=== PATIENT | male | born 1945 | race African-American/Black ===

== ENCOUNTER 2020-10-12 09:14 | Emergency (ER) | payer MEDICARE, SELFPAY ==
[2020-10-12] VITALS (17 sets, daily range): BP systolic 98–127; BP diastolic 62–83; PULSE 53–91; RESP 15–22; TEMP 36.2; O2SAT 95–100
--- NOTE | ~2020-10-12 | CT_ITS ---
EXAMINATION: CT brain wo con DATE: 10/12/2020 10:14 INDICATION: Weakness and dizziness. TECHNIQUE: Computed tomography (CT) of the head was performed without intravenous contrast. The mA wa s adjusted according to patient size. Iterative reconstruction technique was employed. The dose-lengt h product was 605.33 mGy-cm. COMPARISON: None FINDINGS: There is diffuse brain volume loss. There are scattered areas of low attenuation in the cer ebral white matter, which is within normal limits for the patient's age. There is no intracranial he morrhage, acute infarction, or abnormal intracranial mass lesion. The ventricles are normal in size. There is an old blowout fracture of medial wall of right orbit. There is anteroposterior elongation o f the ocular globes. There are likely changes of ocular lens replacement surgeries. The mastoid air c ells are normal. IMPRESSION: 1. Normal aging brain. Reviewed, dictated and finalized at location B. IMPRESSION: 1. Normal aging brain.
--- NOTE | ~2020-10-12 | XR_ITS ---
EXAMINATION: XR chest 2V DATE: 10/12/2020 10:05 INDICATION: Weakness. Dizziness. Fever and chills. TECHNIQUE: Frontal and lateral views of the chest were obtained. COMPARISON: None. FINDINGS: There is mild atelectasis in the lower lung zones. No pleural effusion or pneumothorax. The heart size is normal. There is a compression fracture at thoracolumbar junction with focal severe ky phosis, likely chronic. IMPRESSION: 1. Mild atelectasis in the lower lung zones. Reviewed, dictated and finalized at location B.
--- NOTE | 2020-10-12 09:16 | ECG_ITS ---
Measurements Intervals [place] Rate: 68 P: 58 [place]: 139 QRS: 51 QRSD: 75 T: 49 QT: 354 QTc: 377 Interpretive Statements SINUS RHYTHM INCOMPLETE RIGHT BUNDLE BRANCH BLOCK BORDERLINE ECG Electronically Signed On 10-12-2020 9:55:06 CDT by Jose F Sarmiento D.O.
[2020-10-12 10:04] LABS: Basophils Percent Auto 0.7 % (0.2-1.2); Eosinophils Absolute Auto 0.1 K/mm3 (0-0.3); Eosinophils Percent Auto 2.5 % (0-4.4); Hematocrit 37.3 % (42.0-52.0); Hemoglobin 12.3 g/dL (14.0-18.0); Immature Granulocyte Absolute 0.01 K/mm3 (0.00-0.031); Immature Granulocyte Percent A 0.2 % (0-0.5); Lymphocytes Absolute Auto 1.31 K/mm3 (0.9-3.2); Lymphocytes Percent Auto 29.8 % (18.3-44.2); Mean Corpuscular Hemoglobin 30.2 pg (26-34); Mean Corpuscular Volume 91.6 fl (80-100); Monocytes Absolute Auto 0.5 K/mm3 (0.1-0.6); Monocytes Percent Auto 10.7 % (2.6-8.5); Neutrophils Absolute Auto 2.5 K/mm3 (1.3-6.7); Neutrophils Percent Auto 56.1 % (45.5-73.1); Platelet Count Result 233 k/mm3 (150-375); Red Blood Count 4.07 M/mm3 (4.6-6.20); Red Cell Distribution Width 12.6 % (11.5-14.5); White Blood Count 4.4 K/mm3 (4.5-10.0)
--- NOTE | 2020-10-12 10:04 | ED.WEAKNESS ---
HPI - Weakness General Chief complaint: Weakness Stated complaint: dizziness, weakness Time Seen by Provider: 10/12/20 10:00 Source: patient Mode of arrival: ambulatory Limitations: no limitations History of Present Illness HPI Narrative: This is a 74 year old male that presents to the ER for lightheadedness and weakness over the last 4 days. Reports he feels lightheaded when he stands up. Reports he feels better when he lies down. No localizing symptoms. Denies fever, cough, chest pain, shortness of breath, abdominal pain, vomiting, or dysuria. Related Data Allergies Allergy/AdvReac Type Severity Reaction Status Date / Time No Known Allergies Allergy Verified 10/12/20 10:03 Review of Systems Review of Systems: Narrative: CONSTITUTIONAL: Denies fever CARDIOVASCULAR: Denies chest pain, or edema. RESPIRATORY: Denies cough or dyspnea. GASTROINTESTINAL: Denies abdominal pain, nausea, vomiting GENITOURINARY: Denies dysuria All systems reviewed & are unremarkable except as noted in HPI and below PMFSH Past Medical History Medical History (Updated 10/12/20 @ 13:01 by Bree Nieves PA-C) History of hyperlipidemia History of hypertension Social History Social History Gender identity (if verbalized by the patient): Male Exam Narrative: Exam Narrative: GENERAL: Elderly, well-nourished, and in no acute distress. HEAD: Normocephalic, atraumatic. EYES: PERRLA and EOMI. ENT: Nares clear, no rhinorrhea or epistaxis. Mucous membranes moist. Oropharynx without tonsillar hypertrophy exudate or other lesions. Bilateral TMs pearly maki non-bulging NECK: Supple. No adenopathy or masses. No carotid bruits or JVD CHEST: Clear to auscultation. No respiratory distress. No wheezes rales or rhonchi HEART: Regular rate and rhythm. No murmur heard. Normal peripheral pulses. ABDOMEN: Soft, nontender, nondistended, normal active bowel sounds. EXTREMITIES: Normal range of motion. No edema. SKIN: Warm, dry, no rash. NEURO: No focal deficits. Alert and oriented x3. Cranial nerves II through XII grossly intact. Normal qxlb-cp-bbws. Normal gait PSYCH: Normal mood and affect Course Vital Signs Vital signs: Vital Signs Temperature 97.1 F L 10/12/20 09:17 Pulse Rate 91 10/12/20 09:17 Respiratory Rate 16 10/12/20 09:17 Blood Pressure 127/83 10/12/20 09:17 Pulse Oximetry 100 10/12/20 09:17 Temperature 97.1 F L 10/12/20 09:17 Pulse Rate 56 L 10/12/20 12:31 Respiratory Rate 22 H 10/12/20 12:31 Blood Pressure 119/81 10/12/20 12:31 Pulse Oximetry 100 10/12/20 12:31 MDM - Weakness MDM Narrative Medical decision making narrative: Patient presents the emergency department for generalized weakness. Was also reporting some intermittent lightheadedness. He is afebrile and nontoxic-appearing. He is neurologically intact. CBC and metabolic panel without concerning findings. UA without evidence of infection. Chest x-ray and CT scan of the brain are without concerning findings. EKG without acute changes. Patient ambulated in the berry with a steady gait. He is stable and felt appropriate for further outpatient evaluation. He is to follow-up with his primary care doctor. He was given warnings to return to the ER Lab Data Attestation: I reviewed the patient's lab results. Result diagrams: 10/12/20 09:29 10/12/20 09:29 Labs: Lab Results 10/12/20 10/12/20 10/12/20 Range/Units 09:29 09:29 10:51 WBC 4.4 L (4.5-10.0) K/mm3 RBC 4.07 L (4.6-6.20) M/mm3 Hgb 12.3 L (14.0-18.0) g/dL Hct 37.3 L (42.0-52.0) % MCV 91.6 (80-100) fl MCH 30.2 (26-34) pg MCHC 33.0 (32-36) g/dl RDW 12.6 (11.5-14.5) % Plt Count 233 (150-375) k/mm3 MPV 10.0 (7.4-10.4) fl Immature Gran % (Auto) 0.2 (0-0.5) % Neut % (Auto) 56.1 (45.5-73.1) % Lymph % (Auto) 29.8 (18.3-44.2) % [place] % (Auto) 10.7 H (2.6-8.5) % Eos % (Auto) 2.5 (0-4.4) % B
[2020-10-12 10:13] LABS: Alanine Aminotransferase 12 U/L (4-50); Albumin Level 4.1 g/dL (3.5-5.1); Alkaline Phosphatase 74 U/L (38-126); Anion Gap 7 mmol/L (8-16); Aspartate Amino Transferase 24 U/L (17-59); Bilirubin,Total 0.6 mg/dL (0.2-1.3); Blood Urea Nitrogen 11 mg/dL (9-20); Calcium 8.9 mg/dL (8.4-10.2); Carbon Dioxide 27 mmol/L (22-30); Chloride 107 mmol/L (98-107); Estimated CRCL calculation 53 ml/min; Estimated Glomerular Filt Rate 59; Glucose 102 mg/dL (75-110); Potassium 3.7 mmol/L (3.4-5.0); Sodium 141 mmol/L (137-145)
[2020-10-12 11:08] LABS: Add Urine Microscopic? YES; Appearance Urine Cloudy (Clear); Bilirubin Urine Negative (Negative); Color Urine Amber (Yellow); Glucose Urine UA Negative (Negative); Hyaline Casts Urine 50+ /lpf; Ketones Urine Trace mg/dL (Negative); Leukocyte Esterase Ur Negative LEU/UL (Negative); Mucus Urine Heavy /lpf; Nitrate Urine Negative (Negative); Protein Urine 2+ mg/dL (Negative); RBC Urine 0-2 /hpf (0-2); Specific Grav Ur 1.021 (1.001-1.035); Squamous Epithelial Cell Urine Occasional /hpf (Few)
[2020-10-12 11:11] LABS: Blood Urine Negative (Negative)
[2020-10-12] MEDS: SODIUM CHLORIDE 0.9% IV 1,000 ML 999 ML IV CONT (11:36)
--- NOTE | 2020-10-12 12:32 | PC.NURSE ---
nurse staff Kelly at bedside attempting to collect more urine from pt for culture.
--- NOTE | 2020-10-12 13:01 | PC.NURSE ---
Pt ambulatory around ED Nursing station without dizziness or lightheadedness reported. States is feeling better.
--- NOTE | 2020-10-12 13:07 | PC.NURSE ---
Unable to give additional urine for urine cx (unable to void).
== END 2020-10-12 13:30 | disposition home or self-care (01) ==
PROVIDERS: Emergency Provider Emergency Medicine; PCP Clinical Nurse Specialist Psychiatric/Mental Health, Child & Family
DX: R53.1 Weakness (principal); I10 Essential (primary) hypertension; E78.5 Hyperlipidemia, unspecified
CPT/HCPCS: 36415; 70450; 71046; 80053; 81001; 85025; 87086; 93005; 96360; 99284; J7030

== ENCOUNTER 2021-01-14 14:46 | Emergency (ER) | payer MEDICARE, SELFPAY ==
--- NOTE | ~2021-01-14 | XR_ITS ---
EXAMINATION: XR abdomen/kub 1V INDICATION: Constipation TECHNIQUE: Upright views of the abdomen were obtained on 2 radiographs. COMPARISON: None FINDINGS: There are multiple dilated small bowel loops with air-fluid levels. No definite free intrap eritoneal gas is identified. The visualized lung bases are clear. There is mild osteoarthritis of the hips. S-shaped curvature of the spine is noted. IMPRESSION: 1. Dilated loops of bowel with air-fluid levels consistent with bowel obstruction versus adynamic ile us. Reviewed, dictated and finalized at location B. IMPRESSION: 1. Dilated loops of bowel with air-fluid levels consistent with bowel obstructi on versus adynamic ileus.
[2021-01-14 15:16] VITALS: BP 140/83; PULSE 98; RESP 19; TEMP 37.1; O2SAT 99
--- NOTE | 2021-01-14 15:47 | ED.ABDPAIN ---
HPI - Abdominal Pain General Chief Complaint: Abdominal Pain Stated Complaint: no appetite/bowels irregular Time Seen by Provider: 01/14/21 15:40 Source: patient and RN notes reviewed Mode of arrival: ambulatory Limitations: no limitations History of Present Illness HPI narrative: 75-year-old male presents with concern for constipation and nausea. He reports 4-day history of no bowel movement, nausea, poor appetite. He also reports unintentional weight loss over the past 1 year. He reports he has not spoken to his primary doctor about the unintentional weight loss, he has not seen her since he noticed his weight loss. He denies vomiting, fever, diarrhea, abdominal pain. He reports history of prior episodes of constipation that were relieved with [id number] medications. Reports he has taken Dulcolax with no relief. MD elicited complaint: abdominal pain Related Data Home Medications Medication Instructions Recorded Confirmed amlodipine 10 mg PO DAILY 01/14/21 01/14/21 brimonidine 0.2 drp OPHTHALMIC (EYE) DAILY 01/14/21 01/14/21 latanoprost 0.005 drp EACH EYE DIRECTED 01/14/21 01/14/21 losartan 100 mg PO DAILY 01/14/21 01/14/21 pravastatin 20 mg PO DAILY 01/14/21 01/14/21 timolol maleate 0.5 drp EACH EYE DIRECTED 01/14/21 01/14/21 Allergies Allergy/AdvReac Type Severity Reaction Status Date / Time No Known Allergies Allergy Verified 01/14/21 15:19 Review of Systems Review of Systems: Narrative: CONSTITUTIONAL: Denies malaise, chills, sweats, or fever. CARDIOVASCULAR: Denies chest pain, palpitations, or edema. RESPIRATORY: Denies cough or dyspnea. GASTROINTESTINAL: Denies abdominal pain, vomiting, diarrhea, bloody, or mucous stools. Reports constipation GENITOURINARY: Denies dysuria or hematuria. MUSCULOSKELETAL: Deniesmyalgia. All systems reviewed & are unremarkable except as noted in HPI and below PMFSH Past Medical History Medical History History of hyperlipidemia History of hypertension Social History Social History Gender identity (if verbalized by the patient): Male Comments At time of signature, agree with nursing past medical, surgical, social and family history. There is no relevant family history pertinent to the presenting complaint Exam Narrative: Exam Narrative: GENERAL: Well-appearing, well-nourished, and in no acute distress. HEAD: Normocephalic, atraumatic. EYES: PERRLA, conjunctivae clear, and EOMI. ENT: Nares clear, turbinates pink, no rhinorrhea or epistaxis. Mucous membranes moist. Oropharynx without edema, erythema, or lesions. Tonsils not enlarged and without exudate. NECK: Supple. No lymphadenopathy CHEST: Speaks in full sentences. No respiratory distress. HEART: Regular rate and rhythm. ABDOMEN: Soft, flat, nondistended. No guarding, rebound tenderness, or rigid. No pulsatilla masses. Bowel sounds present in all four quadrants. No organomegaly. Negative Villalta?s sign. No periumbilical tenderness. No Supra public tenderness or distension. Good femoral pulses bilaterally. No hernia noted. No scars or surface trauma. SKIN: Warm, dry, no rash. NEURO: Alert and oriented x3. PSYCH: Normal mood and affect Course Course Emergency Course: Patient is aware of, understands and agrees to be transferred to the emergency room. Patient agrees to proceed directly to the emergency department. Portions of this record may have been created with voice recognition software Vital Signs Vital signs: Vital Signs Temperature 98.8 F 01/14/21 15:16 Pulse Rate 98 01/14/21 15:16 Respiratory Rate 19 01/14/21 15:16 Blood Pressure 140/83 01/14/21 15:16 Pulse Oximetry 99 01/14/21 15:16 Temperature 98.8 F 01/14/21 15:16 Pulse Rate 98 01/14/21 15:16 Respiratory Rate 19 01/14/21 15:16 Blood Pressure 140/83 01/14/21 15:16 Pulse Oximetry 99 01/14/21 15:16 Reviewed. Transfer Transfered to: [facility]
[2021-01-14] MEDS: ONDANSETRON HCL ODT 4 MG TABLET PO (16:37)
== END 2021-01-14 17:05 | disposition short-term general hospital (02) ==
PROVIDERS: Emergency Provider Nurse Practitioner
DX: K56.609 Unspecified intestinal obstruction, unspecified as to partial versus complete obstruction (principal); E78.5 Hyperlipidemia, unspecified; I10 Essential (primary) hypertension
CPT/HCPCS: 74018; 99213; A9270; G0463

== ENCOUNTER 2021-01-14 17:27 | Inpatient (IN) | payer MEDICARE, SELFPAY ==
[2021-01-14] VITALS (8 sets, daily range): BP systolic 114–141; BP diastolic 71–96; PULSE 78–100; RESP 18–31; TEMP 36.2–36.5; O2SAT 100
--- NOTE | ~2021-01-14 | XR_ITS ---
XR abdomen NG/feed tube insert DATE: 01/15/2021 00:42 INDICATION: NG tube placement TECHNIQUE: Portable upright AP view of the upper abdomen on 01/15/2021 at 0033 hours COMPARISON: 01/14/2021 abdomen 01/14/2021 CT abdomen pelvis FINDINGS: NG tube is present in the gastric fundus and the NG tube extending approximately 9 cm beyon d the diaphragmatic hiatus. IMPRESSION: NG tube in gastric fundus Reviewed, dictated and finalized at Location A. Reviewed, dictated and finalized at location A. IMPRESSION: NG tube in gastric fundus
--- NOTE | ~2021-01-14 | XR_ITS ---
XR abdomen/kub 1V 01/21/2021 08:27 Indication: Postoperative ileus Procedure: KUB Comparison: 01/16/2021 Findings: There are mildly dilated small bowel loops in the central abdomen. There is probable free a ir along the right upper abdomen which may be postoperative. Correlate for abdominal surgery. No acut e osseous abnormality. Impression: 1: Free air right upper abdomen, possibly postoperative. Correlate clinically. 2: Mildly distended small bowel centrally, most likely ileus. Reviewed, dictated and finalized at location A. Impression: 1: Free air right upper abdomen, possibly postoperative. Correlate clinically. 2: Mildly distended small bowel centrally, most likely ileus.
--- NOTE | ~2021-01-14 | XR_ITS ---
EXAMINATION: XR abdomen/kub 1V EXAM DATE: 01/16/2021 12:33 INDICATION: Bowel obstruction . Ascending colonic cancer. Left renal mass, probably RCC. TECHNIQUE: Frontal projection of the upper abdomen, frontal projection lower abdomen/pelvis for inter pretation. Comparison is made to prior examination from 01/15/2021, 01/14. FINDINGS: Feeding tube is in position. There are several loops of mildly dilated air-filled small bow el, could be ileus or partial obstruction, noticeable improvement compared to 01/14 exam. There are manjinder ny degenerative changes. IMPRESSION: 1. Several mildly dilated small bowel loops with improvement, ileus versus partial obstruction. 2. Feeding tube in position. Reviewed, dictated and finalized at location A. IMPRESSION: 1. Several mildly dilated small bowel loops with improvement, ileus versus par tial obstruction. 2. Feeding tube in position.
--- NOTE | ~2021-01-14 | CT_ITS ---
EXAMINATION: CT abdomen pelvis w con EXAM DATE: 01/14/2021 22:11 INDICATION: Abdominal pain , symptoms for days. TECHNIQUE: Spiral CT of the abdomen and pelvis was performed following intravenous injection of 100 m L Omnipaque 350. Axial, coronal and sagittal images of the abdomen and pelvis were reviewed. The do se-length product (DLP) for this examination was 426.58 mGy-cm. The exposure was tailored according to patient size (auto mA exposure control), and iterative reconstruction (ASIR) was used as additiona l dose reduction technique. There is no prior study for comparison. FINDINGS: Small exophytic mass off of the lower pole of the left kidney most likely enhancing, most l ikely a renal cell cancer. Pre and postcontrast CT or MRI abdomen is recommended as follow-up exam. There is an ascending colonic circumferential mass measuring about 4 cm in length. There is fluid in the cecum, appendix and small bowel proximal to this. This is best appreciated on the coronal sequenc e. There is stool distal to this, but it could be causing low-grade obstruction. Also possible enteri tis and ileitis. The liver, spleen, adrenal glands and pancreas are unremarkable. Gallbladder is unremarkable. No bi liary obstruction. The prostate is unremarkable. The bladder is unremarkable. There is no retroper itoneal or pelvic lymphadenopathy. There are no findings to suggest appendicitis. The stomach and small bowel are unremarkable. No free intraperitoneal gas. The heart is normal in size. There are no pericardial or pleural effusio ns. The lung bases are unremarkable. There are no osteoblastic or osteolytic lesions identified. 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 2. Possible enteritis and ileitis 3. Small left renal mass suspicious for renal cell cancer. Reviewed, dictated and finalized at location G.
[2021-01-14 17:56] LABS: Basophils Percent Auto 0.2 % (0.2-1.2); Hematocrit 38.9 % (42.0-52.0); Hemoglobin 12.9 g/dL (14.0-18.0); Immature Granulocyte Absolute 0.01 K/mm3 (0.00-0.031); Immature Granulocyte Percent A 0.2 % (0-0.5); Lymphocytes Absolute Auto 0.65 K/mm3 (0.9-3.2); Lymphocytes Percent Auto 13.9 % (18.3-44.2); Mean Corpuscular HGB Conc 33.2 g/dl (32-36); Mean Corpuscular Hemoglobin 30.4 pg (26-34); Mean Corpuscular Volume 91.7 fl (80-100); Mean Platelet Volume 9.4 fl (7.4-10.4); Monocytes Absolute Auto 0.5 K/mm3 (0.1-0.6); Monocytes Percent Auto 11.6 % (2.6-8.5); Neutrophils Absolute Auto 3.5 K/mm3 (1.3-6.7); Neutrophils Percent Auto 74.1 % (45.5-73.1); Platelet Count Result 256 k/mm3 (150-375); Red Blood Count 4.24 M/mm3 (4.6-6.20); Red Cell Distribution Width 13.9 % (11.5-14.5); White Blood Count 4.7 K/mm3 (4.5-10.0)
[2021-01-14 18:05] LABS: Alanine Aminotransferase 16 U/L (4-50); Albumin Level 4.4 g/dL (3.5-5.1); Alkaline Phosphatase 73 U/L (38-126); Anion Gap 14 mmol/L (8-16); Aspartate Amino Transferase 28 U/L (17-59); Blood Urea Nitrogen 28 mg/dL (9-20); Calcium 9.5 mg/dL (8.4-10.2); Carbon Dioxide 24 mmol/L (22-30); Chloride 103 mmol/L (98-107); Estimated CRCL calculation 35 ml/min; Estimated Glomerular Filt Rate 51; Glucose 129 mg/dL (65-110); Lipase 26 U/L (23-300); Potassium 4.5 mmol/L (3.4-5.0); Sodium 141 mmol/L (137-145)
--- NOTE | 2021-01-14 20:57 | ED.ABDPAIN ---
HPI - Abdominal Pain General Chief Complaint: Abdominal Pain Stated Complaint: possible sob vs ileus Time Seen by Provider: 01/14/21 20:54 Source: patient Mode of arrival: ambulatory Limitations: no limitations History of Present Illness HPI narrative: Patient 75 years old -[place] male presents with constipation for the last few days, nausea and vomiting. Patient reports slight abdominal pain. Patient denies any fever, chills. Patient is fully vaccinated for COVID-19. History of hypertension, hyperlipidemia, drinks occasionally, does not smoke or uses drugs. MD elicited complaint: abdominal pain Related Data Home Medications Medication Instructions Recorded Confirmed amlodipine 10 mg PO DAILY 01/14/21 01/14/21 brimonidine 0.2 drp OPHTHALMIC (EYE) DAILY 01/14/21 01/14/21 latanoprost 0.005 drp EACH EYE DIRECTED 01/14/21 01/14/21 losartan 100 mg PO DAILY 01/14/21 01/14/21 pravastatin 20 mg PO DAILY 01/14/21 01/14/21 timolol maleate 0.5 drp EACH EYE DIRECTED 01/14/21 01/14/21 Allergies Allergy/AdvReac Type Severity Reaction Status Date / Time No Known Allergies Allergy Verified 01/14/21 15:19 Review of Systems Review of Systems: Narrative: CONSTITUTIONAL: Denies fever, chills, or sweats. EYES: Denies visual changes, redness, or discharge. ENT: Denies rhinorrhea, congestion, sore throat, or otalgia. CARDIOVASCULAR: Denies chest pain, palpitations, or edema. RESPIRATORY: Denies cough or dyspnea. GASTROINTESTINAL: Nausea and vomiting GENITOURINARY: Denies dysuria or hematuria. SKIN: Denies rash or itching. MUSCULOSKELETAL: Denies back pain, joint pain, or myalgia. NEUROLOGIC: Denies headache, numbness, or weakness. PSYCHIATRIC: Denies anxiety or depression. PMFSH Past Medical History Medical History History of hyperlipidemia History of hypertension Social History Social History Gender identity (if verbalized by the patient): Male Exam Narrative: Exam Narrative: General appearance: Well-developed, well-nourished Skin: Normal color Head: Normocephalic, nontraumatic Eyes: Clear conjunctiva, legally blind ENT: Oropharynx normal, ears normal, nose normal Neck: Supple, nontender Chest and respiratory: Airway patent, no respiratory distress, no accessory muscle use Heart: Regular rate/rhythm Abdomen: Soft, nontender, no organomegaly, quiet bowel sounds Vascular: Normal peripheral pulses, normal capillary refill. Musculoskeletal: Normal range of motion, nontender back Neurologic: Alert and oriented ?3, [employer] is normal as tested, no gross motor deficit Course Course Emergency Course: Stable Consultations Consultation #1: Dr. Welch Date: 01/14/21 Time: 23:44 Consultation #2: Dr. whitley Date: 01/14/21 Time: 23:44 Vital Signs Vital signs: Vital Signs Temperature 36.5 C 01/14/21 17:36 Pulse Rate 100 01/14/21 17:36 Respiratory Rate 20 01/14/21 17:36 Blood Pressure 141/71 H 01/14/21 17:36 Pulse Oximetry 100 01/14/21 17:36 Temperature 36.2 C L 01/14/21 20:05 Pulse Rate 82 01/14/21 21:46 Respiratory Rate 28 H 01/14/21 21:46 Blood Pressure 128/84 01/14/21 21:46 Pulse Oximetry 100 01/14/21 21:46 MDM - Abdominal Pain MDM Narrative Medical decision making narrative: Constipation with vomiting and possible abdominal pain. Labs, IV fluid, CT abdomen pelvis with IV contrast ordered. Work-up showed that the patient had dehydration, CT scan of the abdomen and pelvis showed ascending colonic mass and left renal mass, possible bowel obstruction. NG tube ordered, surgical consult, gastroe
[2021-01-14] MEDS: SODIUM CHLORIDE 0.9% IV 1,000 ML 999 ML IV CONT (21:45)
[2021-01-15] VITALS (14 sets, daily range): BP systolic 95–147; BP diastolic 62–80; PULSE 69–99; RESP 18–37; TEMP 35.7–37.3; O2SAT 95–100; BMI 24.3; BMI 24.5
--- NOTE | 2021-01-15 01:24 | PC.NURSE ---
This patient, Chino Mitchell, was admitted to 3 Med Surg Room 310-01 @0125. Report taken from Anayeli ROSENBERG in ED. Patient/family oriented to hospital policies and general routines including ID bracelet, bed and alarms, visiting hours, pain management, procedures, bathroom and other care routines, personal items, smoking policy, room service/diet, and visiting hours. Information on how to activate the Rapid Response Team has been discussed. Patient/Family are encouraged to report perceived risks to care and to ask questions if they do not understand what they are told or what they should do.
[2021-01-15] MEDS: SODIUM CHLORIDE 0.9% IV 1,000 ML 125 ML IV CONT ×2 (02:08→11:04)
--- NOTE | 2021-01-15 02:43 | PM.IMHP ---
H&P: HPI History of Present Illness Date/Time: 01/15/21 04:00 Chief Complaint: constipation Narrative: 75-year-old male with past medical history hypertension, hyperlipidemia, glaucoma and legal blindness who presented to urgent care with complaint of constipation for 4 days and was directed to the ER via EMS when his KUB demonstrated findings suspicious for small bowel obstruction. He reports that he has had progressive weight loss of about 60 lb over the last year. He has had intermittent nausea throughout this time that is worsened over recent months. Over the last 3 days his nausea has worsened to the point where he has had several episodes of emesis. He has noticed that his constipation has been getting progressively worse over the last 6 months. He used to only have to take a laxative every 4 days or so but over recent weeks he has had to take a laxative more frequently and he is not getting is good of results with the laxative. He is uncertain if he is having any hematochezia, melena or hematuria as he is legally blind. He reports that he had a colonoscopy about 1.5 years ago at [facility]. he thinks he had some colon polyps in that he was post have a repeat colonoscopy in 3 years or so. He denies any real abdominal pain. He reports that his abdomen has gotten smaller due to his weight loss. He denies any urinary symptoms. In the ER the patient had a CT of the abdomen pelvis which demonstrated an ascending colon mass probably adenocarcinoma causing low-grade obstruction and a left renal mass suspicious for renal cell carcinoma. He denies any chest pain or shortness of breath. He has not had any cough or congestion. He used to have some chronic rashes on his legs but since he has lost weight he has had resolution of the rash. he reports that he recently had a live his teeth extracted in is in the process of getting dentures. Review of Systems Review of Systems: Narrative: 12 systems were reviewed with pertinent positives and negatives per HPI. Except as documented in the HPI, all other systems were reviewed and are negative. [facility] Past Medical History Medical History (Updated 01/15/21 @ 05:59 by Rena Anders DO) Essential hypertension Glaucoma Hyperlipidemia Legally blind Surgical History Surgical History (Updated 01/15/21 @ 05:38 by Rena Anders DO) History of eye surgery history of multiple bilateral eye surgeries History of facial surgery due to trauma Family History Family History Mother , 2003 Old age when she was in her 90s Father , 2002 Old age when he was in his 90s Sibling No active medical problems brother that pt lives with.. nothing significant Social History Social History (Updated 01/15/21 @ 05:47 by Rena Anders DO) Social History: He is single and has never been . He lives with his brother. He does not have any kids. 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 Smoking status: Former smoker Alcohol intake: current Drinks per week: 1 Substance use: never Gender identity (if verbalized by the patient): Male Spiritual care concerns: No Meds Home Medications and Allergies Home Medications Medication Instructions Recorded Confirmed Type amlodipine 10 mg PO DAILY 01/14/21 01/15/21 History brimonidine 0.2 drp OPHTHALMIC (EYE) DAILY 01/14/21 01/15/21 History latanoprost 0.005 drp EACH EYE DAILY 01/14/21 01/15/21 History losartan 100 mg PO DAILY 01/14/21 01/15/21 History pravastatin 20 mg PO DAILY 01/14/21 01/15/21 History timolol maleate 0.5 drp EACH EYE DAILY 01/14/21 01/15/21 History zolpidem 10 mg PO HS PRN 01/15/21 01/15/21 History Allergies Allergy/AdvReac Type Severity Reaction Status Date / Time No Known Allergies [place]
[2021-01-15 07:12] LABS: Hematocrit 34.4 % (42.0-52.0); Hemoglobin 11.5 g/dL (14.0-18.0); Mean Corpuscular HGB Conc 33.4 g/dl (32-36); Mean Corpuscular Hemoglobin 29.6 pg (26-34); Mean Corpuscular Volume 88.7 fl (80-100); Mean Platelet Volume 10.1 fl (7.4-10.4); Platelet Count Result 252 k/mm3 (150-375); Red Blood Count 3.88 M/mm3 (4.6-6.20); Red Cell Distribution Width 13.6 % (11.5-14.5)
[2021-01-15 07:24] LABS: Anion Gap 13 mmol/L (8-16); Blood Urea Nitrogen 27 mg/dL (9-20); Calcium 8.9 mg/dL (8.4-10.2); Carbon Dioxide 21 mmol/L (22-30); Chloride 108 mmol/L (98-107); Estimated CRCL calculation 40 ml/min; Estimated Glomerular Filt Rate 60; Glucose 101 mg/dL (65-110); Potassium 3.9 mmol/L (3.4-5.0); Sodium 142 mmol/L (137-145)
[2021-01-15] MEDS: TIMOLOL MALEATE 0.5% OP SOLN 5 ML BOTTLE 1 DROP EACH EYE (08:54)
[2021-01-15] MEDS: BRIMONIDINE TARTRATE 0.2% OP SOLN 5 ML BTL 1 DROP EACH EYE (08:54)
--- NOTE | 2021-01-15 10:59 | PM.CNGS ---
Assessment and Plan Assessment and plan (1) Colonic mass: Code(s): K63.89 - Other specified diseases of intestine Status: Acute Assessment and Plan: I have reviewed the CT and discussed the findings with the patient. He has a concerning mass in the ascending colon that appears to be causing at least a partial obstruction. He does have stool distal to this. Will try to give patient a Dulcolax suppository today to stimulate bowels. Would like to obtain colonoscopy records from [facility]. Also await GI evaluation here. If possible, repeat colonoscopy will be beneficial, especially given that he had a colonoscopy just a year ago. Will also check CEA level today. Patient may ultimately require a right hemicolectomy, but will try to do this with prepped bowels of possible. If he is showing complete obstruction signs then will have to proceed with right hemicolectomy without prep. (2) Bowel obstruction: Qualifiers: Intestinal obstruction extent: partial Intestinal obstruction type: other intestinal obstruction Qualified Code(s): K56.690 - Other partial intestinal obstruction Code(s): K56.609 - Unspecified intestinal obstruction, unspecified as to partial versus complete obstruction Status: Acute (3) Left renal mass: Code(s): N28.89 - Other specified disorders of kidney and ureter Status: Acute (4) ELVIRA (acute kidney injury): Code(s): N17.9 - Acute kidney failure, unspecified Status: Acute History of Present Illness Consult details Consult date: 01/15/21 Reason for consult: other (Colon mass) Requesting physician: Jim Lombardi MD Narrative: this is a 75-year-old man who presented to the emergency department overnight with complaints of constipation and nausea and vomiting. He has had progressively worsening symptoms over the past several months. Over the past several days he has been feeling constipated and has not been able to tolerate much oral intake. He is legally blind, and cannot tell if he has any blood in his stool. He has had a 60 lb weight loss over the past year. He does state that he had a colonoscopy about a year and half ago at [facility], [place] and this was normal except for some polyps. He denies any family history of colon cancer. A CT in the emergency department showed evidence of an ascending colon mass causing at least partial obstruction. NG tube was placed in the emergency department and he was admitted for further treatment. He states that he is not passing any flatus. He is not complaining of much abdominal pain currently. Review of Systems Review of Systems: All systems reviewed & are unremarkable except as noted in HPI and below Constitutional: Constitutional: Denies chills, Denies fever(s) and Reports weight loss Eyes: Eyes: Denies change in vision ENT: Denies hearing loss, Denies neck pain and Denies sore throat Cardiovascular: Cardiovascular: Denies chest pain and Denies dyspnea Respiratory: Respiratory: Denies cough, Denies dyspnea and Denies wheezing Gastrointestinal: Gastrointestinal: Reports as per HPI Genitourinary: Genitourinary: Denies hematuria and Denies dysuria Musculoskeletal: Musculoskeletal: Denies arthralgias, Denies joint swelling and Denies neck pain Allergic/Immunologic: Allergic/Immunologic: Denies wheezing [facility] Past Medical History Medical History Essential hypertension Glaucoma Hyperlipidemia Legally blind Surgical History Surgical History History of eye surgery history of multiple bilateral eye surgeries History of facial surgery due to trauma Family History Family History Mother , 2003 Old age when she was in her 90s Father , 2002 Old age when he was in his 90s
[2021-01-15 11:35] LABS: Add Urine Microscopic? YES; Appearance Urine Clear (Clear); Bilirubin Urine Negative (Negative); Blood Urine Negative (Negative); Color Urine Yellow (Yellow); Glucose Urine UA Negative (Negative); Ketones Urine 1+ mg/dL (Negative); Leukocyte Esterase Ur Negative LEU/UL (Negative); Mucus Urine Rare /lpf; Nitrate Urine Negative (Negative); Protein Urine Negative (Negative); Squamous Epithelial Cell Urine Rare /hpf (Few); WBC Urine 0-3 /hpf
[2021-01-15 11:39] LABS: Specific Grav Ur 1.042 (1.001-1.035)
[2021-01-15 12:27] LABS: Carcinoembryonic Antigen 9.7 ng/mL (0.0-3.0)
--- NOTE | 2021-01-15 13:30 | WPDGICN ---
Assessment and Plan Assessment and plan (1) Colonic mass: Code(s): K63.89 - Other specified diseases of intestine Status: Acute Assessment and Plan: he had colonoscopies elsewhere but presentation highly concerning for colon lesion, he is agreeable to have colonoscopy Sunday keep him npo for now with NGT- hopefully tomorrow he will be able to tolerate bowel prep check cea level (2) Bowel obstruction: Qualifiers: Intestinal obstruction extent: partial Intestinal obstruction type: other intestinal obstruction Qualified Code(s): K56.690 - Other partial intestinal obstruction Code(s): K56.609 - Unspecified intestinal obstruction, unspecified as to partial versus complete obstruction Status: Acute Assessment and Plan: medical management for now, surgery team on board- may need right hemicolectomy based on findings antiemetics prn- will see if can tolerate bowel prep tomorrow will try to get record of previous colonoscopy (3) Anorexia: Code(s): R63.0 - Anorexia Status: Acute Assessment and Plan: poor appetite and nausea with vomiting will also assess with egd to rule out other pathologies in upper gi tract (4) Nausea & vomiting: Code(s): R11.2 - Nausea with vomiting, unspecified Status: Acute Assessment and Plan: medical management, ngt with suction (5) Left renal mass: Code(s): N28.89 - Other specified disorders of kidney and ureter Status: Acute Assessment and Plan: eventually also will need to be addressed (6) Weight loss: Code(s): R63.4 - Abnormal weight loss Status: Acute Assessment and Plan: most likely he has malignancy (7) Legally blind: Code(s): H54.8 - Legal blindness, as defined in [place] Status: Inactive GI Consult Note Consult date/time: 01/15/21 13:30 Reason for consult: n/v, colon mass, weight loss HPI: Chino Mitchell is a 75 year old male who is legally blind, HTN who says that at least had 2 different colonoscopies as screening- last one 1.5 year ago at [facility] (apparently had polyps only- no records). He is here with 1 year of progressive constipation but last 2 months also noted 60 lb weight loss, decrease appetite and not able to keep much of any food down. Finally came to ER, CT scan reviewed that showed evidence of an ascending colon mass causing at least partial obstruction, possible enteritis and ileitis and small left renal mass suspicious for renal cell cancer. Admitted to hospital, evaluted by surgery and NG tube was placed. Denies much of any abdominal pain. Review of Systems Constitutional: Constitutional: Reports weakness Eyes: Comments: legally blind ENT: Reports Normal hearing present Cardiovascular: Cardiovascular: Denies chest pain Respiratory: Respiratory: Denies cough Gastrointestinal: Gastrointestinal: Reports constipation, Reports nausea and Reports vomiting Genitourinary: Genitourinary: Denies urinary frequency Musculoskeletal: Musculoskeletal: Denies neck pain Integumentary/Breasts: Skin/Breast: Denies dry skin Neurologic: Denies headache(s) Psychiatric: Psychiatric: Denies confusion [facility] Past Medical History Medical History (Updated 01/15/21 @ 13:36 by Timbo Marquis MD) Anorexia Essential hypertension Glaucoma Hyperlipidemia Legally blind Nausea & vomiting Weight loss Surgical History Surgical History History of eye surgery history of multiple bilateral eye surgeries History of facial surgery due to trauma Family History Family History Mother , 2003 Old age when she was in her 90s Father , 2002 Old age when he was in his 90s Sibling No active medical problems brother that pt lives with.. nothing significant Social H
[2021-01-15] MEDS: BISACODYL 10 MG SUPPOSITORY RECTAL (13:54)
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
[2021-01-15 16:25] LABS: Basophils Percent Auto 0.2 % (0.2-1.2); Eosinophils Percent Auto 0.5 % (0-4.4); Immature Granulocyte Absolute 0.01 K/mm3 (0.00-0.031); Immature Granulocyte Percent A 0.2 % (0-0.5); Lymphocytes Absolute Auto 0.55 K/mm3 (0.9-3.2); Lymphocytes Percent Auto 9.4 % (18.3-44.2); Mean Corpuscular HGB Conc 33.3 g/dl (32-36); Mean Corpuscular Hemoglobin 29.8 pg (26-34); Mean Corpuscular Volume 89.4 fl (80-100); Mean Platelet Volume 9.4 fl (7.4-10.4); Monocytes Absolute Auto 0.9 K/mm3 (0.1-0.6); Monocytes Percent Auto 14.8 % (2.6-8.5); Neutrophils Absolute Auto 4.4 K/mm3 (1.3-6.7); Neutrophils Percent Auto 74.9 % (45.5-73.1); Platelet Count Result 226 k/mm3 (150-375); Red Blood Count 3.69 M/mm3 (4.6-6.20); Red Cell Distribution Width 13.7 % (11.5-14.5); White Blood Count 5.8 K/mm3 (4.5-10.0)
[2021-01-15 16:34] LABS: Alanine Aminotransferase 9 U/L (4-50); Albumin Level 3.4 g/dL (3.5-5.1); Alkaline Phosphatase 60 U/L (38-126); Anion Gap 10 mmol/L (8-16); Aspartate Amino Transferase 23 U/L (17-59); Bilirubin,Total 0.8 mg/dL (0.2-1.3); Blood Urea Nitrogen 22 mg/dL (9-20); Calcium 8.7 mg/dL (8.4-10.2); Carbon Dioxide 23 mmol/L (22-30); Chloride 111 mmol/L (98-107); Estimated CRCL calculation 47 ml/min; Estimated Glomerular Filt Rate > 60; Glucose 95 mg/dL (65-110); Potassium 3.8 mmol/L (3.4-5.0); Sodium 144 mmol/L (137-145)
[2021-01-15 16:41] LABS: Partial Thromboplastin Time 25.7 SECONDS (22.3-36.8); Transferrin 146 mg/dL (206-381)
[2021-01-15] MEDS: AMINO ACIDS 4.25%/D5W/LYTES/CA 2,000 ML 80 ML IV CONT (17:46)
[2021-01-15] MEDS: FAT EMULSIONS IV 20% 250 ML 20.83 ML IVPB (17:47)
[2021-01-15 18:11] LABS: Glucose Point of Care 95 mg/dl (65-105)
[2021-01-15] MEDS: LATANOPROST 0.005% OP SOLN 2.5 ML BTL 1 DROP EACH EYE (20:26)
--- NOTE | 2021-01-15 22:05 | WPDURCON ---
Assessment and Plan Assessment and plan (1) Left renal mass: Code(s): N28.89 - Other specified disorders of kidney and ureter Status: Acute Assessment and Plan: Based on contrasted CT AP, there is a small (1cm) left renal mass (due to lack of a noncon phase, unable to say if enhancing or not). Regardless, a renal mass this size, even if malignant, has an average risk of metastatsizing of about 1% per year with an average growth rate of 5-10mm a year. As such, given his concerning GI findings, will plan to hold on further characterization or evaluation of the renal mass at this time. Patient encouraged to keep Urologic follow up with a CT Abdomen WWO (renal mass protocol) 6-12 weeks after discharge. He would prefer to follow up with a provider who is regularly at [place], so will advise he see one of my partners, Dr. Singer or Selvin. No further urologic workup indicated at this time Urology Consult Note HPI Date Seen: 01/15/21 Requesting Physician: Rena Anders DO Primary Care Provider: PHYSICIAN NOT ON STAFF Consult Narrative Narrative: Chino Mitchell is a 75 year old male who is admitted for bowel obstruction with imaging findings concerning for colon mass. Urology is consulted due to patient's imaging revealing a small left renal mass, concerning for renal cell carcinoma. It was a contrasted CT AP, and (urologically) it revealed a 1cm exophytic left renal mass. I personally reviewed the images. He has a pertinent PMH of HTN, HLD, Glaucoma, and Legal Blindness. His last Colonoscopy was 1.5 years ago at [facility]. He presented to the ER due to 4 days of constipation and progressive, unintentional, weight loss. He reports he is a former smoker, quit over 40 years ago, and denies hematuria. Review of Systems Review of Systems: All systems reviewed & are unremarkable except as noted in HPI and below PMFSH Past Medical History Medical History (Updated 01/15/21 @ 15:42 by Bossman Chacon MD) Anorexia Essential hypertension Glaucoma Hyperlipidemia Legally blind Nausea & vomiting Weight loss Surgical History Surgical History History of eye surgery history of multiple bilateral eye surgeries History of facial surgery due to trauma Family History Family History Mother , 2003 Old age when she was in her 90s Father , 2002 Old age when he was in his 90s Sibling No active medical problems brother that pt lives with.. nothing significant Social History Social History Social History: He is single and has never been . He lives with his brother. He does not have any kids. 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 Smoking status: Former smoker Alcohol intake: current Drinks per week: 1 Substance use: never Gender identity (if verbalized by the patient): Male Spiritual care concerns: No Meds Home Medications and Allergies Home Medications Medication Instructions Recorded Confirmed Type amlodipine 10 mg PO DAILY 01/14/21 01/15/21 History brimonidine 0.2 drp OPHTHALMIC (EYE) DAILY 01/14/21 01/15/21 History latanoprost 0.005 drp EACH EYE DAILY 01/14/21 01/15/21 History losartan 100 mg PO DAILY 01/14/21 01/15/21 History pravastatin 20 mg PO DAILY 01/14/21 01/15/21 History timolol maleate 0.5 drp EACH EYE DAILY 01/14/21 01/15/21 History zolpidem 10 mg PO HS PRN 01/15/21 01/15/21 History Allergies Allergy/AdvReac Type Severity Reaction Status Date / Time No Known Allergies Allergy Verified 01/15/21 01:54 Vital Signs Vital Signs - 24 hr 01/14/21 20:05 01/14/21 21:31 01/14/21 21:46 Temperature 36.2 C
[2021-01-15 23:45] LABS: Glucose Point of Care 104 mg/dl (65-105)
[2021-01-15] MEDS: LORazepam INJ (*CRX) 2 MG/ML VIAL 0.5 MG IV PUSH (23:52)
[2021-01-16 06:00] VITALS: BP 151/68; PULSE 71; RESP 18; TEMP 36.4; O2SAT 98
[2021-01-16 06:58] LABS: Hematocrit 33.5 % (42.0-52.0); Hemoglobin 11.1 g/dL (14.0-18.0); Mean Corpuscular HGB Conc 33.1 g/dl (32-36); Mean Corpuscular Hemoglobin 30.1 pg (26-34); Mean Corpuscular Volume 90.8 fl (80-100); Mean Platelet Volume 10.4 fl (7.4-10.4); Platelet Count Result 235 k/mm3 (150-375); Red Blood Count 3.69 M/mm3 (4.6-6.20); Red Cell Distribution Width 13.8 % (11.5-14.5); White Blood Count 5.3 K/mm3 (4.5-10.0)
[2021-01-16 07:40] LABS: Alanine Aminotransferase 10 U/L (4-50); Albumin Level 3.3 g/dL (3.5-5.1); Alkaline Phosphatase 46 U/L (38-126); Anion Gap 7 mmol/L (8-16); Aspartate Amino Transferase 31 U/L (17-59); Bilirubin,Total 0.6 mg/dL (0.2-1.3); Blood Urea Nitrogen 25 mg/dL (9-20); Calcium 8.6 mg/dL (8.4-10.2); Carbon Dioxide 24 mmol/L (22-30); Chloride 113 mmol/L (98-107); Estimated CRCL calculation 61 ml/min; Estimated Glomerular Filt Rate > 60; Glucose 108 mg/dL (65-110); Phosphorus 3.3 mg/dL (2.5-4.5); Potassium 3.8 mmol/L (3.4-5.0); Sodium 144 mmol/L (137-145)
[2021-01-16] MEDS: BRIMONIDINE TARTRATE 0.2% OP SOLN 5 ML BTL 1 DROP EACH EYE (08:46)
[2021-01-16] MEDS: TIMOLOL MALEATE 0.5% OP SOLN 5 ML BOTTLE 1 DROP EACH EYE (08:46)
[2021-01-16 11:33] LABS: Glucose Point of Care 112 mg/dl (65-105)
--- NOTE | 2021-01-16 12:20 | PM.PNGS ---
Progress Note: A&P Assessment and Plan (1) Colonic mass: Code(s): K63.89 - Other specified diseases of intestine Status: Acute Assessment and Plan: Will await possible colonoscopy tomorrow to further assess CT finding. Check KUB today, patient might be able to tolerate NG removal and bowel prep if obstruction appears to be improving Discussed possibly proceeding with hand assisted laparoscopic extended right hemicolectomy in the next few days pending colonoscopy findings. Might have to proceed sooner if unable to tolerated bowel prep. CEA 9 concerning for colon adenocarcinoma (2) Bowel obstruction: Qualifiers: Intestinal obstruction extent: partial Intestinal obstruction type: other intestinal obstruction Qualified Code(s): K56.690 - Other partial intestinal obstruction Code(s): K56.609 - Unspecified intestinal obstruction, unspecified as to partial versus complete obstruction Status: Acute (3) Weight loss: Code(s): R63.4 - Abnormal weight loss Status: Acute Subjective Subjective Date/Time Seen: 01/16/21 12:20 Interval history: 1 large BM yesterday after suppository. No abdominal pain. Exam GI: Inspection: non-distended GI Palp: No Tenderness to palpation present (GI) and No Guarding due to palpation present (GI) Auscultation: Hypoactive bowel sounds present Objective Data Vital Signs Vital Signs: Vital Signs - 24 hr 01/15/21 14:00 01/15/21 20:00 01/15/21 22:00 Temperature 37.3 C 36.7 C Pulse Rate 76 69 Respiratory Rate 20 20 18 Blood Pressure 144/76 H 136/69 Pulse Oximetry 100 100 98 01/16/21 06:00 Temperature 36.4 C Pulse Rate 71 Respiratory Rate 18 Blood Pressure 151/68 H Pulse Oximetry 98 Intake/Output Intake/Output: Intake & Output 01/13/21 01/14/21 01/15/21 01/16/21 23:59 23:59 23:59 23:59 Intake Total 1000 2000 250 Output Total 1600 200 Balance 1000 400 50 Meds/Results Medications: Active Medications Generic Name Dose Route Start Last Admin Trade Name Freq PRN Reason Stop Dose Admin Brimonidine Tartrate 1 drop 01/15/21 09:00 01/16/21 08:46 Brimonidine Tartrate 0.2% Op Soln 5 Ml Btl EACH EYE 1 drop DAILY GEMINI Administration Hydralazine HCl 10 mg 01/15/21 02:50 Hydralazine Hcl 20 Mg/Ml Vial IV PUSH Q4H PRN SBP greater than 160 Dextrose 1,000 mls @ 50 mls/hr 01/15/21 15:47 Dextrose 10% IV CONT .Q20H PRN if PN is interrupted Amino Acids/Electrolytes/Dextrose 2,000 mls @ 80 mls/hr 01/15/21 15:50 01/15/21 17:46 Clinimix E 4.25%/5% Solution IV CONT 80 mls/hr .Q24H GEMINI Administration Protocol Fat Emulsion Intravenous 250 mls @ 20.833 mls/hr 01/15/21 16:00 01/16/21 05:58 Lipids 20% IVPB Infused Q24H GEMINI Infusion Insulin Human Regular 0 units 01/15/21 18:00 01/16/21 11:50 Insulin Human Regular (*Bkc) 100 Units/Ml SUB-Q Not Given Q6HR GEMINI Protocol Latanoprost 1 drop 01/15/21 21:00 01/15/21 20:26 Latanoprost 0.005% Op Soln 2.5 Ml Btl EACH EYE 1 drop HS GEMINI Administration Lorazepam 0.5 mg 01/15/21 15:47 01/15/21 23:52 Lorazepam Inj (*Crx) 2 Mg/Ml Vial IV PUSH 0.5 mg Q6H PRN Administration Anxiety Ondansetron HCl 4 mg 01/14/21 23:46 Ondansetron Inj 4 Mg/2 Ml Vial IV PUSH Q4H PRN Nausea Timolol Maleate 1 drop 01/15/21 09:00 01/16/21 08:46 Timolol Maleate 0.5% Op Soln 5 Ml Bottle EACH EYE 1 drop DAILY GEMINI Administration Radiology Results: ITS Impressions Abdomen/Pelvis CT 01/14/21 22:15 IMPRESSION: 1. 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 2. Possible enteritis and ileitis 3. Small left renal mass suspicious for renal cell cancer. Abdomen X-Ray 01/15/21 08:53 IMPRESSION: NG tube in gastric fundus Labs Labs: Laboratory Results - last 24 hr 01/15/21 01/15/21 01/15/21 11:38 16:14 16:14 WBC
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
[2021-01-16 14:00] VITALS: BP 125/69; PULSE 69; RESP 16; TEMP 36.7; O2SAT 97
--- NOTE | 2021-01-16 14:12 | WPDGIPROGNO ---
Progress Note: A&P Assessment and Plan (1) Nausea & vomiting: Code(s): R11.2 - Nausea with vomiting, unspecified Status: Acute Assessment and Plan: will give bowel prep today (hopefully he can tolerate- had one BM yesterday), ok to give using NGT egd and colonoscopy tomorrow to assess if malignancy (2) Colonic mass: Code(s): K63.89 - Other specified diseases of intestine Status: Acute Assessment and Plan: probably also will need surgery after colonoscopy (3) Bowel obstruction: Qualifiers: Intestinal obstruction extent: partial Intestinal obstruction type: other intestinal obstruction Qualified Code(s): K56.690 - Other partial intestinal obstruction Code(s): K56.609 - Unspecified intestinal obstruction, unspecified as to partial versus complete obstruction Status: Acute Assessment and Plan: reviewed KUB (4) Weight loss: Code(s): R63.4 - Abnormal weight loss Status: Acute (5) Anorexia: Code(s): R63.0 - Anorexia Status: Acute Assessment and Plan: on parenteral nutrition for now (6) Left renal mass: Code(s): N28.89 - Other specified disorders of kidney and ureter Status: Acute Assessment and Plan: urology evaluatino Subjective Date/time seen: 01/16/21 14:12 Interval history: had BM yesterday but still with nausea, NGT in place Review of Systems Review of Systems: All systems reviewed & are unremarkable except as noted in HPI and below Exam Const: General: no acute distress Other: ngt in place HENMT: General nose exam: Normal nares present Eyes: Sclera: sclerae normal Neck: Neck: supple Resp: Auscultation: clear to auscultation bilaterally Cardio: Rate: regular rate GI: GI Palp: Yes Soft to palpation and No Tenderness to palpation present (GI) Auscultation: Hypoactive bowel sounds present Skin: General skin exam: normal color Neuro: Speech: normal speech Motor exam (neuro): Normal motor muscle tone present throughout Extrem: General: normal to inspection Psych: Mental Status: mental status grossly normal Objective Data Vital Signs Vital Signs: Vital Signs - 24 hr 01/15/21 20:00 01/15/21 22:00 01/16/21 06:00 Temperature 98.0 F 97.6 F Pulse Rate 69 71 Respiratory Rate 20 18 18 Blood Pressure 136/69 151/68 H Pulse Oximetry 100 98 98 Intake/Output Intake/Output: Intake & Output 01/13/21 01/14/21 01/15/21 01/16/21 23:59 23:59 23:59 23:59 Intake Total 1000 2000 250 Output Total 1600 200 Balance 1000 400 50 Meds/Results Medications: Active Medications Generic Name Dose Route Start Last Admin Trade Name Freq PRN Reason Stop Dose Admin Bisacodyl 20 mg 01/16/21 17:00 Bisacodyl 5 Mg Tablet Ec PO 01/16/21 17:01 ONCE ONE Brimonidine Tartrate 1 drop 01/15/21 09:00 01/16/21 08:46 Brimonidine Tartrate 0.2% Op Soln 5 Ml Btl EACH EYE 1 drop DAILY GEMINI Administration Hydralazine HCl 10 mg 01/15/21 02:50 Hydralazine Hcl 20 Mg/Ml Vial IV PUSH Q4H PRN SBP greater than 160 Dextrose 1,000 mls @ 50 mls/hr 01/15/21 15:47 Dextrose 10% IV CONT .Q20H PRN if PN is interrupted Amino Acids/Electrolytes/Dextrose 2,000 mls @ 80 mls/hr 01/15/21 15:50 01/15/21 17:46 Clinimix E 4.25%/5% Solution IV CONT 80 mls/hr .Q24H GEMINI Administration Protocol Fat Emulsion Intravenous 250 mls @ 20.833 mls/hr 01/15/21 16:00 01/16/21 05:58 Lipids 20% IVPB Infused Q24H GEMINI Infusion Insulin Human Regular 0 units 01/15/21 18:00 01/16/21 11:50 Insulin Human Regular (*Bkc) 100 Units/Ml SUB-Q Not Given Q6HR GEMINI Protocol Latanoprost 1 drop 01/15/21 21:00 01/15/21 20:26 Latanoprost 0.005% Op Soln 2.5 Ml Btl EACH EYE 1 drop HS GEMINI Administration Lorazepam 0.5 mg 01/15/21 15:47 01/15/21 23:52 Lorazepam Inj (*Crx) 2 Mg/Ml Vial IV PUSH 0.5 mg Q6H PRN Administration Anxi
[2021-01-16] MEDS: AMINO ACIDS 4.25%/D5W/LYTES/CA 2,000 ML 80 ML IV CONT (15:47)
[2021-01-16] MEDS: FAT EMULSIONS IV 20% 250 ML 20.83 ML IVPB (15:47)
[2021-01-16] MEDS: BISACODYL 5 MG TABLET EC 20 MG PO (16:11)
[2021-01-16] MEDS: polyethylene glycoL 3350 238 GM BOTTLE PO (16:11)
[2021-01-16 17:10] LABS: Triglycerides 123 mg/dL (<150)
[2021-01-16 18:16] LABS: Glucose Point of Care 95 mg/dl (65-105)
[2021-01-16 20:00] VITALS: PULSE 88; RESP 16; O2SAT 100
[2021-01-16 22:00] VITALS: BP 132/75; PULSE 88; RESP 16; TEMP 36.4; O2SAT 100
[2021-01-16] MEDS: LATANOPROST 0.005% OP SOLN 2.5 ML BTL 1 DROP EACH EYE (22:17)
[2021-01-17] VITALS (10 sets, daily range): BP systolic 69–143; BP diastolic 35–75; PULSE 51–86; RESP 16–21; TEMP 35.7–36.3; O2SAT 99–100; BMI 24.5
[2021-01-17 00:33] LABS: Glucose Point of Care 106 mg/dl (65-105)
[2021-01-17] MEDS: MAGNESIUM CITRATE 300 ML BTL PO (05:53)
[2021-01-17 06:11] LABS: Glucose Point of Care 105 mg/dl (65-105)
[2021-01-17 06:39] LABS: Basophils Percent Auto 0.2 % (0.2-1.2); Eosinophils Absolute Auto 0.1 K/mm3 (0-0.3); Eosinophils Percent Auto 1.6 % (0-4.4); Hematocrit 37.2 % (42.0-52.0); Hemoglobin 11.8 g/dL (14.0-18.0); Immature Granulocyte Absolute 0.02 K/mm3 (0.00-0.031); Immature Granulocyte Percent A 0.2 % (0-0.5); Lymphocytes Absolute Auto 0.57 K/mm3 (0.9-3.2); Lymphocytes Percent Auto 7.1 % (18.3-44.2); Mean Corpuscular HGB Conc 31.7 g/dl (32-36); Mean Corpuscular Hemoglobin 29.9 pg (26-34); Mean Corpuscular Volume 94.4 fl (80-100); Mean Platelet Volume 9.9 fl (7.4-10.4); Monocytes Absolute Auto 0.8 K/mm3 (0.1-0.6); Monocytes Percent Auto 10.2 % (2.6-8.5); Neutrophils Absolute Auto 6.5 K/mm3 (1.3-6.7); Neutrophils Percent Auto 80.7 % (45.5-73.1); Platelet Count Result 238 k/mm3 (150-375); Red Blood Count 3.94 M/mm3 (4.6-6.20); White Blood Count 8.1 K/mm3 (4.5-10.0)
[2021-01-17 06:49] LABS: Alanine Aminotransferase 13 U/L (4-50); Albumin Level 3.8 g/dL (3.5-5.1); Alkaline Phosphatase 63 U/L (38-126); Anion Gap 10 mmol/L (8-16); Aspartate Amino Transferase 29 U/L (17-59); Bilirubin,Total 0.6 mg/dL (0.2-1.3); Blood Urea Nitrogen 23 mg/dL (9-20); Calcium 9.2 mg/dL (8.4-10.2); Carbon Dioxide 25 mmol/L (22-30); Chloride 111 mmol/L (98-107); Estimated CRCL calculation 61 ml/min; Estimated Glomerular Filt Rate > 60; Glucose 110 mg/dL (65-110); Magnesium 2.5 mg/dL (1.6-2.3); Phosphorus 3.6 mg/dL (2.5-4.5); Potassium 3.8 mmol/L (3.4-5.0); Sodium 146 mmol/L (137-145)
[2021-01-17 06:50] LABS: Partial Thromboplastin Time 26.9 SECONDS (22.3-36.8)
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
[2021-01-17] MEDS: BRIMONIDINE TARTRATE 0.2% OP SOLN 5 ML BTL 1 DROP EACH EYE (08:56)
[2021-01-17] MEDS: TIMOLOL MALEATE 0.5% OP SOLN 5 ML BOTTLE 1 DROP EACH EYE (08:57)
[2021-01-17 11:06] LABS: Transferrin 168 mg/dL (206-381)
[2021-01-17] MEDS: LACTATED RINGERS 1,000 ML 150 ML IV CONT (11:48)
--- NOTE | 2021-01-17 11:53 | WPDANESEPPF ---
Anes - Initial Pre Proc Eval Procedure: Operation Date: 01/17/21 13:15 Proposed Procedures p Esophagogastroduodenoscopy & Colonoscopy - Timbo Marquis MD Operation Date: 01/18/21 12:00 Proposed Procedures p Hand Assisted Laparoscopic Right Hemicolectomy - Clark Upton DO Date/Time: 01/17/21 11:53 Surgeon: Rena Anders DO Pre Op Diagnosis: Vomiting,Bowel Obstruction,Colonic Mass,Lt Renal M Patient Data Age: 75 Gender: M Height: 1.73 m Weight: 73.1 kg Last Vital Signs Temp 35.7 C L 01/17/21 11:50 Pulse 59 L 01/17/21 11:50 Resp 18 01/17/21 11:50 BP 126/75 01/17/21 11:50 Pulse Ox 100 01/17/21 11:50 Allergies Allergy/AdvReac Type Severity Reaction Status Date / Time No Known Allergies Allergy Verified 01/15/21 01:54 Home Medications Medication Instructions Recorded Confirmed Type amlodipine 10 mg PO DAILY 01/14/21 01/15/21 History brimonidine 0.2 drp OPHTHALMIC (EYE) DAILY 01/14/21 01/15/21 History latanoprost 0.005 drp EACH EYE DAILY 01/14/21 01/15/21 History losartan 100 mg PO DAILY 01/14/21 01/15/21 History pravastatin 20 mg PO DAILY 01/14/21 01/15/21 History timolol maleate 0.5 drp EACH EYE DAILY 01/14/21 01/15/21 History zolpidem 10 mg PO HS PRN 01/15/21 01/15/21 History Laboratory Tests 01/16/21 01/16/21 01/17/21 16:30 18:12 00:27 WBC RBC Hgb Hct MCV MCH MCHC RDW Plt Count MPV Immature Gran % (Auto) Neut % (Auto) Lymph % (Auto) Richardson % (Auto) Eos % (Auto) Baso % (Auto) Lymph # (Auto) Richardson # (Auto) Eos # (Auto) Baso # (Auto) Abs Immat Gran (auto) Absolute Neuts (auto) Absolute Nucleated RBC Nucleated RBC % PT INR APTT Sodium Potassium Chloride Carbon Dioxide Anion Gap BUN Creatinine Estim Creat Clear Calc Estimated GFR Glucose POC Capillary Glucose 95 mg/dl mg/dl 106 mg/dl H mg/dl (65-105) (65-105) Calcium Phosphorus Magnesium Transferrin Total Bilirubin AST ALT Alkaline Phosphatase Total Protein Albumin Triglycerides 123 mg/dL mg/dL (<150) 01/17/21 01/17/21 01/17/21 05:57 06:05 06:05 WBC 8.1 K/mm3 K/mm3 (4.5-10.0) RBC 3.94 M/mm3 L M/mm3 (4.6-6.20) Hgb 11.8 g/dL L g/dL (14.0-18.0) Hct 37.2 % L % (42.0-52.0) MCV 94.4 fl fl (80-100) MCH 29.9 pg pg (26-34) MCHC 31.7 g/dl L g/dl (32-36) RDW 14.0 % % (11.5-14.5) Plt Count 238 k/mm3 k/mm3 (150-375) MPV 9.9 fl fl (7.4-10.4) Immature Gran % (Auto) 0.2 % % (0-0.5) Neut % (Auto) 80.7 % H % (45.5-73.1) Lymph % (Auto) 7.1 % L % (18.3-44.2) Richardson % (Auto) 10.2 % H % (2.6-8.5) Eos % (Auto) 1.6 % % (0-4.4) Baso % (Auto) 0.2 % % (0.2-1.2) Lymph # (Auto) 0.57 K/mm3 L K/mm3 (0.9-3.2) Richardson # (Auto) 0.8 K/mm3 H K/mm3 (0.1-0.6) Eos # (Auto) 0.1 K/mm3 K/mm3 (0-0.3) Baso # (Auto) 0.0 K/mm3 K/mm3 (0.0-0.1) Abs Immat Gran (auto) 0.02 K/mm3 K/mm3 (0.00-0.031) Absolute Neuts (auto) 6.5 K/mm3 K/mm3 (1.3-6.7) Absolute Nucleated RBC 0.0 K/mm3 K/mm3 (0.0-0.012) Nucleated RBC % 0.0 % % (0.0-0.2) PT 13.0 Seconds Seconds (11.1-14.7) INR 1.0 APTT 26.9 SECONDS SECONDS (22.3-36.8) Sodium Potassium
[2021-01-17 12:47] LABS: Glucose Point of Care 100 mg/dl (65-105)
--- NOTE | 2021-01-17 12:55 | SUR.OPER ---
EGD START 1222, END 1224 COLONOSCOPY START 1230, END 1252
[2021-01-17 13:13] LABS: Glucose Point of Care 80 mg/dl (65-105)
[2021-01-17] MEDS: AMINO ACIDS 4.25%/D5W/LYTES/CA 2,000 ML 80 ML IV CONT (14:02)
--- NOTE | 2021-01-17 15:44 | PM.PNGS ---
Progress Note: A&P Assessment and Plan (1) Colonic mass: Code(s): K63.89 - Other specified diseases of intestine Status: Acute Assessment and Plan: I reviewed the EGD and colonoscopy findings. Discussed with patient that this will continue to cause obstructions without surgical intervention. I have recommended proceeding with hand assisted laparoscopic right hemicolectomy, possible open. Discussed procedure, risks, benefits, and alternatives. Questions answered. (2) Bowel obstruction: Qualifiers: Intestinal obstruction extent: partial Intestinal obstruction type: other intestinal obstruction Qualified Code(s): K56.690 - Other partial intestinal obstruction Code(s): K56.609 - Unspecified intestinal obstruction, unspecified as to partial versus complete obstruction Status: Acute (3) Weight loss: Code(s): R63.4 - Abnormal weight loss Status: Acute Subjective Subjective Date/Time Seen: 01/17/21 15:44 Interval history: Colonoscopy done today. Near obstructing mass identified. Patient doing well after procedure. Exam GI: Inspection: non-distended GI Palp: Yes Soft to palpation, No Tenderness to palpation present (GI) and No Guarding due to palpation present (GI) Objective Data Vital Signs Vital Signs: Vital Signs - 24 hr 01/16/21 20:00 01/16/21 22:00 01/17/21 06:00 Temperature 36.4 C 36.2 C L Pulse Rate 88 88 86 Respiratory Rate 16 16 20 Blood Pressure 132/75 129/67 Pulse Oximetry 100 100 100 01/17/21 11:50 01/17/21 12:57 01/17/21 13:07 Temperature 35.7 C L Pulse Rate 59 L 55 L 51 L Respiratory Rate 18 18 17 Blood Pressure 126/75 69/35 L 107/54 L Pulse Oximetry 100 100 100 01/17/21 13:17 01/17/21 13:22 01/17/21 13:27 Temperature Pulse Rate 65 65 65 Respiratory Rate 17 21 H 21 H Blood Pressure 91/51 L 107/67 124/44 L Pulse Oximetry 99 100 99 01/17/21 13:37 01/17/21 14:06 Temperature 36.3 C L Pulse Rate 63 60 Respiratory Rate 20 16 Blood Pressure 111/53 L 143/72 H Pulse Oximetry 99 99 Intake/Output Intake/Output: Intake & Output 01/14/21 01/15/21 01/16/21 01/17/21 23:59 23:59 23:59 23:59 Intake Total 1000 1999 2250 2500 Output Total 1600 1450 500 Balance 1000 638 803 [id number] Meds/Results Medications: Active Medications Generic Name Dose Route Start Last Admin Trade Name Freq PRN Reason Stop Dose Admin Brimonidine Tartrate 1 drop 01/15/21 09:00 01/17/21 08:56 Brimonidine Tartrate 0.2% Op Soln 5 Ml Btl EACH EYE 1 drop DAILY GEMINI Administration Hydralazine HCl 10 mg 01/15/21 02:50 Hydralazine Hcl 20 Mg/Ml Vial IV PUSH Q4H PRN SBP greater than 160 Dextrose 1,000 mls @ 50 mls/hr 01/15/21 15:47 Dextrose 10% IV CONT .Q20H PRN if PN is interrupted Amino Acids/Electrolytes/Dextrose 2,000 mls @ 80 mls/hr 01/15/21 15:50 01/17/21 14:02 Clinimix E 4.25%/5% Solution IV CONT 80 mls/hr .Q24H GEMINI Administration Protocol Fat Emulsion Intravenous 250 mls @ 20.833 mls/hr 01/15/21 16:00 01/16/21 15:47 Lipids 20% IVPB 20.83 mls/hr Q24H GEMINI Administration Lactated Ringer's 1,000 mls @ 30 mls/hr 01/17/21 14:05 Lr - Lactated Ringers Iv IV CONT .Q24H GEMINI Insulin Human Regular 0 units 01/15/21 18:00 01/17/21 14:02 Insulin Human Regular (*Bkc) 100 Units/Ml SUB-Q Not Given Q6HR [facility] Protocol Latanoprost 1 drop 01/15/21 21:00 01/16/21 22:17 Latanoprost 0.005% Op Soln 2.5 Ml Btl EACH EYE 1 drop HS GEMINI Administration Lorazepam 0.5 mg 01/15/21 15:47 01/15/21 23:52 Lorazepam Inj (*Crx) 2 Mg/Ml Vial IV PUSH 0.5 mg Q6H PRN Administration Anxiety Ondansetron HCl 4 mg 01/14/21 23:46 Ondansetron Inj 4 Mg/2 Ml Vial IV PUSH Q4H PRN Nausea Pantoprazole Sodium 40 mg 01/17/21 13:45 Pantoprazole Sodium Iv 40 Mg [facility] [place] Timolol Maleate 1 drop 01/15/21 09:00 01/17/21 08:57 Timolol
[2021-01-17 17:04] LABS: Glucose Point of Care 95 mg/dl (65-105)
[2021-01-17] MEDS: FAT EMULSIONS IV 20% 250 ML 20.83 ML IVPB (17:31)
[2021-01-17] MEDS: PANTOPRAZOLE SODIUM IV 40 MG VIAL IV PUSH (18:06)
[2021-01-17] MEDS: LATANOPROST 0.005% OP SOLN 2.5 ML BTL 1 DROP EACH EYE (20:23)
[2021-01-17] MEDS: HEPARIN SODIUM 5,000 UNITS/ML VIAL 5000 UNITS SUB-Q (20:23)
[2021-01-18] VITALS (17 sets, daily range): BP systolic 100–185; BP diastolic 61–85; PULSE 56–110; RESP 16–22; TEMP 36.4–37.4; O2SAT 97–100
[2021-01-18 02:22] LABS: Glucose Point of Care 92 mg/dl (65-105)
[2021-01-18 06:46] LABS: Glucose Point of Care 98 mg/dl (65-105)
[2021-01-18 06:53] LABS: Anion Gap 6 mmol/L (8-16); Blood Urea Nitrogen 18 mg/dL (9-20); Calcium 8.5 mg/dL (8.4-10.2); Carbon Dioxide 26 mmol/L (22-30); Chloride 112 mmol/L (98-107); Estimated CRCL calculation 68 ml/min; Estimated Glomerular Filt Rate > 60; Glucose 89 mg/dL (65-110); Potassium 3.9 mmol/L (3.4-5.0); Sodium 144 mmol/L (137-145)
--- NOTE | 2021-01-18 10:47 | PC.NURSE ---
Pt to OR via bed with PPN and lipids continuing. ABX tubed to surgery. NG clamped.
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
[2021-01-18] MEDS: LACTATED RINGERS 1,000 ML 30 ML IV CONT ×2 (11:30→14:18)
[2021-01-18 11:50] LABS: Glucose Point of Care 102 mg/dl (65-105)
[2021-01-18] MEDS: metroNIDAZOLE 500 MG/ISO 100ML 500 MG/100 ML BAG 100 MG IVPB (12:00)
[2021-01-18] MEDS: ceFAZolin 2 GM/D5W 50 ML 2 GM/50 ML BAG IVPB (12:00)
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
--- NOTE | 2021-01-18 12:46 | PCDIET ---
Nutrition Follow-Up Complete: Nutrition Diagnosis: Altered GI function related to bowel obstruction as evidenced by PPN/NGT. Nutrition Goal: Meet estimated nutritional needs. Goal in progress. Patient receiving Clinimix 4.25/5 at 80mL/hr with 250mL 20% lipids daily for total of 1153kcal and 82g protein daily. If unable/unexpected to advance diet in the next few days, recommend central PN (Clinimix 5/15 E at 90mL/hr with 250mL 20% lipids daily for 2034kcal and 108g protein daily). Noted plan for laparascopic right hemicolectomy today. Last recorded weight is 75 kg which is up from last review. +I/O. Bowel Motility: BM x 3 on 01/17/21. Labs Reviewed: Cl (112) Meds Noted: LR at 30mL/hr, Protonix Additional Notes: No documented skin breakdown. Will continue to monitor with same goal. Nutrition Monitoring and Evaluation: Will monitor every Sunday and Sunday.
[2021-01-18] MEDS: BUPIVACAINE/EPINEPHRINE 0.5% 50 ML VIAL (12:48)
--- NOTE | 2021-01-18 14:17 | W.PM.PROC2 ---
Procedure Note - Detailed Date of Procedure 01/18/21 Pre-op Diagnosis Ascending colon mass, partial colon obstruction Post-op Diagnosis same Procedure Performed Hand assisted laparoscopic right hemicolectomy with ileocolic anastomosis Surgeon Clark Upton, DO Anesthesia general and local ( 0.5% bupivacaine with epinephrine) Indications This is a 75-year-old man who presented to the emergency department on 01/14/2021 with complaints of bloating, nausea, vomiting, and weight loss. CT showed evidence of an ascending colon mass suspicious for carcinoma. NG tube was placed and he was admitted to the hospital for further treatment. His CEA level was 9.7 and GI was consulted for possible colonoscopy. He did not appear to have evidence of a complete obstruction and was able to tolerate a prep through the NG tube. Colonoscopy was performed on 01/17/2021 and this showed evidence of a near obstructing ascending colon mass suspicious for cancer. Discussions were made with the patient about his treatment options and decision was made to proceed with hand assisted laparoscopic right hemicolectomy, possible open. Findings Hand assisted laparoscopic right hemicolectomy was performed. The ascending colon mass was identified near the hepatic flexure. There did not appear to be any other evidence of metastatic spread. A high ligation the ileocolic vessels and right branch of the middle colic vessels was performed. A side to side ileocolic stapled anastomosis was performed. The specimen was then sent to the lab for pathology. Description of Procedure Procedure as well as risks benefits and alternatives were explained to the patient. Written consent was obtained and placed in chart prior to procedure. Patient was brought back to surgical suite. He was placed supine on operating table. Time-out was done to confirm patient procedure. he was then intubated by the anesthesia department. his abdomen was prepped and draped in sterile fashion using chlorhexidine prep. A 7 centimeter vertical incision was made just superior to the umbilicus using a 15 blade scalpel. Electrocautery was used for hemostasis and for dissection down through Lico's fascia. The linea alba was identified, and incised using electrocautery. Two Ana clamps were used to lift the fascia anteriorly, and the peritoneum was then entered using electrocautery. The abdomen was inspected and no acute abnormalities were noted. The wound protector was placed at this incision, and the GelPort was applied with a 5 millimeter port placed through it. Carbon dioxide insufflation was used to create a pneumoperitoneum. The camera was inserted and the abdominal cavity was inspected. The tattooed region was identified on the ascending colon, and no other abnormalities were noted. The patient was placed in Trendelenburg position and rotated slightly to the left. A 5 millimeter incision was made in the lower midline and a 5 millimeter trocar was inserted under direct visualization. Another 5 millimeter incision was made in the left lower quadrant, and a 5 millimeter trocar was inserted under direct visualization. 0.5% bupivacaine with epinephrine was infiltrated locally around each of the incisions. After carefully inspecting the abdominal cavity, I began my dissection from a medial to lateral direction along the ileocolic pedicle. The cecum was tented anteriorly and laterally and this allowed me to visualize the ileocolic pedicle. The medial side and inferior side of the peritoneum was scored using hook electrocautery and the retroperitoneal plane was entered. Careful dissection was performed using hook electrocautery in this relatively avascular plane. The duodenum was identified and swept posteriorly. I then continued to dissect proximally along the ileocolic pedicle. I isolated the ileocolic vein and artery individually and performed a high ligation using bipolar cautery. Hemostasis appeared adequate
[2021-01-18] MEDS: fentaNYL CITRATE INJ (*CRX) 100 MCG/2 ML VIAL 25 MCG IV PUSH ×5 (14:48→15:26)
--- NOTE | 2021-01-18 14:57 | SUR.PHASEI ---
1450; NOTIFIED DR SIMENTAL OF BP 180'S/70'S. HR 63. PT HAVING MODERATE PAIN. DR BOWEN ORDERS TO CONTINUE TO MONITOR BP, IF STAYS HIGH, MAY GIVE HYDRALAZINE 5MG IV, UP TO 15MG, TITRATE SBP TO 160.
--- NOTE | 2021-01-18 14:59 | SUR.PHASEI ---
LATE NOTE, 1418; PT HAS TPH/LIPIDS INFUSING UPON ARRIVAL TO PACU,
[2021-01-18] MEDS: hydrALAZINE HCL 20 MG/ML VIAL 5 MG IV PUSH ×2 (15:08→15:26)
[2021-01-18 17:16] LABS: Triglycerides 148 mg/dL (<150)
[2021-01-18] MEDS: ONDANSETRON INJ 4 MG/2 ML VIAL IV PUSH (17:24)
[2021-01-18] MEDS: MORPHINE SULFATE (*CRX) 2 MG/ML INJ IV PUSH (17:25)
[2021-01-18] MEDS: FAT EMULSIONS IV 20% 250 ML 20.83 ML IVPB (17:27)
[2021-01-18] MEDS: AMINO ACIDS 4.25%/D5W/LYTES/CA 2,000 ML 80 ML IV CONT (17:28)
[2021-01-18] MEDS: BRIMONIDINE TARTRATE 0.2% OP SOLN 5 ML BTL 1 DROP EACH EYE (17:37)
[2021-01-18] MEDS: TIMOLOL MALEATE 0.5% OP SOLN 5 ML BOTTLE 1 DROP EACH EYE (17:37)
[2021-01-18] MEDS: PANTOPRAZOLE SODIUM IV 40 MG VIAL IV PUSH (17:38)
[2021-01-18 18:32] LABS: Glucose Point of Care 115 mg/dl (65-105)
--- NOTE | 2021-01-18 19:57 | PC.NURSE ---
Pt back to room via bed at 1615. Pt states he is uncomfortable. Report received from Delores who stated that pt no longer had post catheter in; that it had been pulled before he arrived to PACU per Yamilethkeira request. Asked Delores to clarify since order still outstanding. She stated that she would. He had voided on his return to his room 125 of faust yellow urine. Pt assessed, pain meds given, new PPN and lipids hung. Pt given clear liquid diet tray as well as water to drink. Continuing to monitor vitals and pain.
[2021-01-18] MEDS: HEPARIN SODIUM 5,000 UNITS/ML VIAL 5000 UNITS SUB-Q (20:43)
[2021-01-18] MEDS: LATANOPROST 0.005% OP SOLN 2.5 ML BTL 1 DROP EACH EYE (20:44)
[2021-01-19] MEDS: ACETAMINOPHEN 500 MG TABLET 1000 MG PO ×5 (00:04→23:40)
[2021-01-19 00:06] VITALS: BP 141/66; PULSE 78; RESP 20; TEMP 36.9; O2SAT 100
[2021-01-19 00:52] LABS: Glucose Point of Care 101 mg/dl (65-105)
[2021-01-19 06:00] VITALS: BP 134/66; PULSE 76; RESP 18; TEMP 36.5; O2SAT 100
[2021-01-19 06:43] LABS: Anion Gap 12 mmol/L (8-16); Blood Urea Nitrogen 20 mg/dL (9-20); Calcium 8.5 mg/dL (8.4-10.2); Carbon Dioxide 18 mmol/L (22-30); Chloride 113 mmol/L (98-107); Estimated CRCL calculation 68 ml/min; Estimated Glomerular Filt Rate > 60; Glucose 104 mg/dL (65-110); Potassium 4.2 mmol/L (3.4-5.0); Sodium 143 mmol/L (137-145)
[2021-01-19 06:53] LABS: Glucose Point of Care 102 mg/dl (65-105)
--- NOTE | 2021-01-19 07:27 | PM.PNGS ---
Progress Note: A&P Assessment and Plan (1) Colonic mass: Code(s): K63.89 - Other specified diseases of intestine Status: Acute Assessment and Plan: Continue clear liquids and PPN today Await return of bowel function Increase activity, will order PT/OT (2) Bowel obstruction: Qualifiers: Intestinal obstruction extent: partial Intestinal obstruction type: other intestinal obstruction Qualified Code(s): K56.690 - Other partial intestinal obstruction Code(s): K56.609 - Unspecified intestinal obstruction, unspecified as to partial versus complete obstruction Status: Acute Subjective Subjective Date/Time Seen: 01/19/21 07:27 Interval history: Doing well on POD#1. No flatus yet. Tolerating clears. Not much appetite. Exam GI: Inspection: incision (intact with glue) GI Palp: Yes Soft to palpation, Yes Tenderness to palpation present (GI) (appropriate postop) and No Guarding due to palpation present (GI) Auscultation: Hypoactive bowel sounds present Objective Data Vital Signs Vital Signs: Vital Signs - 24 hr 01/18/21 11:36 01/18/21 14:18 01/18/21 14:30 Temperature 36.4 C 37.4 C Pulse Rate 58 L 65 60 Respiratory Rate 21 H 20 Blood Pressure 159/82 H 150/78 H 182/85 H Pulse Oximetry 100 99 100 01/18/21 14:45 01/18/21 15:00 01/18/21 15:15 Temperature Pulse Rate 64 70 85 Respiratory Rate 22 H 16 20 Blood Pressure 185/77 H 185/72 H 172/74 H Pulse Oximetry 100 100 99 01/18/21 15:30 01/18/21 15:45 01/18/21 16:00 Temperature Pulse Rate 85 85 90 Respiratory Rate 18 20 22 H Blood Pressure 163/76 H 166/76 H 146/62 H Pulse Oximetry 100 100 100 01/18/21 17:10 01/18/21 17:25 01/18/21 17:55 Temperature 36.6 C 36.4 C 36.6 C Pulse Rate 102 H 110 H 99 Respiratory Rate 18 16 18 Blood Pressure 177/80 H 100/69 130/64 Pulse Oximetry 98 100 99 01/18/21 19:50 01/18/21 20:00 01/18/21 22:32 Temperature 37.2 C 37.0 C Pulse Rate 78 89 86 Respiratory Rate 20 18 20 Blood Pressure 123/74 120/71 Pulse Oximetry 100 100 97 01/18/21 23:15 01/19/21 00:06 01/19/21 06:00 Temperature 36.9 C 36.9 C 36.5 C Pulse Rate 83 78 76 Respiratory Rate 18 20 18 Blood Pressure 127/63 141/66 H 134/66 Pulse Oximetry 100 100 100 Intake/Output Intake/Output: Intake & Output 01/16/21 01/17/21 01/18/21 01/19/21 23:59 23:59 23:59 23:59 Intake Total 2250 2750 2850 250 Output Total 1450 0050 888 5815 Balance 800 1450 2085 -850 Meds/Results Medications: Active Medications Generic Name Dose Route Start Last Admin Trade Name Freq PRN Reason Stop Dose Admin Acetaminophen 1,000 mg 01/18/21 17:00 01/19/21 05:10 Acetaminophen 500 Mg Tablet PO 1,000 mg Q6H GEMINI Administration Brimonidine Tartrate 1 drop 01/15/21 09:00 01/18/21 17:37 Brimonidine Tartrate 0.2% Op Soln 5 Ml Btl EACH EYE 1 drop DAILY GEMINI Administration Heparin Sodium (Porcine) 5,000 units 01/17/21 21:00 01/18/21 20:43 Heparin Sodium 5,000 Units/Ml Vial SUB-Q 5,000 units Q12HR GEMINI Administration Dextrose 1,000 mls @ 50 mls/hr 01/15/21 15:47 Dextrose 10% IV CONT .Q20H PRN if PN is interrupted Amino Acids/Electrolytes/Dextrose 2,000 mls @ 80 mls/hr 01/15/21 15:50 01/18/21 17:28 Clinimix E 4.25%/5% Solution IV CONT 80 mls/hr .Q24H GEMINI Administration Protocol Fat Emulsion Intravenous 250 mls @ 20.833 mls/hr 01/15/21 16:00 01/18/21 17:27 Lipids 20% IVPB 20.83 mls/hr Q24H GEMINI Administration Insulin Human Regular 0 units 01/15/21 18:00 01/19/21 06:41 Insulin Human Regular (*Bkc) 100 Units/Ml SUB-Q Not Given Q6HR GEMINI Protocol Latanoprost 1 drop 01/15/21 21:00 01/18/21 20:44 Latanoprost 0.005% Op Soln 2.5 Ml Btl EACH EYE 1 drop HS GEMINI Administration Lorazepam 0.5 mg 01/15/21 15:47 01/15/21 23:52 Lorazepam Inj (*Crx) 2 Mg/Ml Vial IV PUSH 0.5 mg Q6H PRN Administration Anxiety Morphine Sulfate 2 mg 0
[2021-01-19 08:04] LABS: Glucose Point of Care 109 mg/dl (65-105)
[2021-01-19] MEDS: HEPARIN SODIUM 5,000 UNITS/ML VIAL 5000 UNITS SUB-Q ×2 (08:27→20:45)
[2021-01-19] MEDS: BRIMONIDINE TARTRATE 0.2% OP SOLN 5 ML BTL 1 DROP EACH EYE (08:27)
[2021-01-19] MEDS: TIMOLOL MALEATE 0.5% OP SOLN 5 ML BOTTLE 1 DROP EACH EYE (08:27)
--- NOTE | 2021-01-19 08:53 | WPDANESPN ---
Anes - Prog Note Post-Op Date/Time: 01/19/21 08:53 Cardiovascular status: normal Respiratory status: normal Airway patency: baseline Mental status: baseline Post-Op hydration status: normal Vital Signs: Last Vital Signs Temp 36.5 C 01/19/21 06:00 Pulse 76 01/19/21 06:00 Resp 18 01/19/21 06:00 BP 134/66 01/19/21 06:00 Pulse Ox 100 01/19/21 06:00 Pain Score (VAS): 0 I/O: Intake & Output 01/18/21 01/19/21 01/19/21 23:59 07:59 15:59 Intake Total 50 250 Output Total 365 1100 Balance -315 -850 Laboratory Tests 01/19/21 05:55 01/18/21 01/18/21 01/18/21 11:47 16:37 18:28 WBC RBC Hgb Hct MCV MCH MCHC RDW Plt Count MPV Immature Gran % (Auto) Neut % (Auto) Lymph % (Auto) Meade % (Auto) Eos % (Auto) Baso % (Auto) Lymph # (Auto) Meade # (Auto) Eos # (Auto) Baso # (Auto) Abs Immat Gran (auto) Absolute Neuts (auto) Absolute Nucleated RBC Nucleated RBC % Sodium Potassium Chloride Carbon Dioxide Anion Gap BUN Creatinine Estim Creat Clear Calc Estimated GFR Glucose POC Capillary Glucose 102 115 H Calcium Triglycerides 148 01/19/21 01/19/21 01/19/21 00:09 05:55 05:55 WBC Pending RBC Pending Hgb Pending Hct Pending MCV Pending MCH Pending MCHC Pending RDW Pending Plt Count Pending MPV Pending Immature Gran % (Auto) Pending Neut % (Auto) Pending Lymph % (Auto) Pending Meade % (Auto) Pending Eos % (Auto) Pending Baso % (Auto) Pending Lymph # (Auto) Pending Meade # (Auto) Pending Eos # (Auto) Pending Baso # (Auto) Pending Abs Immat Gran (auto) Pending Absolute Neuts (auto) Pending Absolute Nucleated RBC Pending Nucleated RBC % Pending Sodium 143 Potassium 4.2 Chloride 113 H Carbon Dioxide 18 L Anion Gap 12 BUN 20 Creatinine 0.80 Estim Creat Clear Calc 68 Estimated GFR > 60 Glucose 104 POC Capillary Glucose 101 Calcium 8.5 Triglycerides 01/19/21 01/19/21 06:40 07:56 WBC RBC Hgb Hct MCV MCH MCHC RDW Plt Count MPV Immature Gran % (Auto) Neut % (Auto) Lymph % (Auto) Meade % (Auto) Eos % (Auto) Baso % (Auto) Lymph # (Auto) Meade # (Auto) Eos # (Auto) Baso # (Auto) Abs Immat Gran (auto) Absolute Neuts (auto) Absolute Nucleated RBC Nucleated RBC % Sodium Potassium Chloride Carbon Dioxide Anion Gap BUN Creatinine Estim Creat Clear Calc Estimated GFR Glucose POC Capillary Glucose 102 109 H Calcium Triglycerides Post-procedural complaints: none Patient Feedback: Patient satisfied with anesthetic care.
[2021-01-19 08:58] LABS: Basophils Percent Auto 0.1 % (0.2-1.2); Eosinophils Absolute Auto 0.1 K/mm3 (0-0.3); Eosinophils Percent Auto 0.6 % (0-4.4); Hematocrit 35.3 % (42.0-52.0); Hemoglobin 11.3 g/dL (14.0-18.0); Immature Granulocyte Absolute 0.05 K/mm3 (0.00-0.031); Immature Granulocyte Percent A 0.4 % (0-0.5); Lymphocytes Absolute Auto 1.05 K/mm3 (0.9-3.2); Lymphocytes Percent Auto 9.1 % (18.3-44.2); Mean Corpuscular Hemoglobin 29.5 pg (26-34); Mean Corpuscular Volume 92.2 fl (80-100); Mean Platelet Volume 10.5 fl (7.4-10.4); Monocytes Absolute Auto 1.2 K/mm3 (0.1-0.6); Monocytes Percent Auto 10.3 % (2.6-8.5); Neutrophils Absolute Auto 9.2 K/mm3 (1.3-6.7); Neutrophils Percent Auto 79.5 % (45.5-73.1); Platelet Count Result 209 k/mm3 (150-375); Red Blood Count 3.83 M/mm3 (4.6-6.20); Red Cell Distribution Width 13.8 % (11.5-14.5); White Blood Count 11.6 K/mm3 (4.5-10.0)
--- NOTE | 2021-01-19 10:34 | PCOTNOTE ---
Attempted OT evaluation, patient reports feeling nauseous at this time and declined therapy until afternoon, RN notified. Will follow and attempt at later time.
[2021-01-19] MEDS: ONDANSETRON INJ 4 MG/2 ML VIAL IV PUSH (12:31)
[2021-01-19 12:53] LABS: Glucose Point of Care 106 mg/dl (65-105)
[2021-01-19 14:00] VITALS: BP 121/63; PULSE 65; RESP 16; TEMP 36.7; O2SAT 100
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
[2021-01-19] MEDS: FAT EMULSIONS IV 20% 250 ML 20.83 ML IVPB (15:38)
[2021-01-19] MEDS: AMINO ACIDS 4.25%/D5W/LYTES/CA 2,000 ML 80 ML IV CONT (15:38)
[2021-01-19] MEDS: PANTOPRAZOLE SODIUM IV 40 MG VIAL IV PUSH (15:39)
[2021-01-19 17:33] LABS: Glucose Point of Care 111 mg/dl (65-105)
[2021-01-19] MEDS: LATANOPROST 0.005% OP SOLN 2.5 ML BTL 1 DROP EACH EYE (20:46)
[2021-01-19 21:47] VITALS: BP 148/72; PULSE 65; RESP 16; TEMP 36.3; O2SAT 98
[2021-01-20 00:55] LABS: Glucose Point of Care 109 mg/dl (65-105)
[2021-01-20 00:55] LABS: Glucose Point of Care 117 mg/dl (65-105)
[2021-01-20] MEDS: ONDANSETRON INJ 4 MG/2 ML VIAL IV PUSH (03:28)
[2021-01-20] MEDS: ACETAMINOPHEN 500 MG TABLET 1000 MG PO ×4 (05:14→23:44)
[2021-01-20 05:37] LABS: Glucose Point of Care 110 mg/dl (65-105)
[2021-01-20 06:00] VITALS: BP 155/75; PULSE 76; RESP 18; TEMP 36.1; O2SAT 98
[2021-01-20 06:54] LABS: Basophils Percent Auto 0.1 % (0.2-1.2); Eosinophils Absolute Auto 0.2 K/mm3 (0-0.3); Eosinophils Percent Auto 1.8 % (0-4.4); Hematocrit 34.5 % (42.0-52.0); Hemoglobin 11.1 g/dL (14.0-18.0); Immature Granulocyte Absolute 0.12 K/mm3 (0.00-0.031); Lymphocytes Absolute Auto 0.89 K/mm3 (0.9-3.2); Lymphocytes Percent Auto 7.4 % (18.3-44.2); Mean Corpuscular HGB Conc 32.2 g/dl (32-36); Mean Corpuscular Hemoglobin 29.6 pg (26-34); Mean Platelet Volume 10.6 fl (7.4-10.4); Monocytes Absolute Auto 1.2 K/mm3 (0.1-0.6); Monocytes Percent Auto 10.3 % (2.6-8.5); Neutrophils Absolute Auto 9.5 K/mm3 (1.3-6.7); Neutrophils Percent Auto 79.4 % (45.5-73.1); Platelet Count Result 208 k/mm3 (150-375); Red Blood Count 3.75 M/mm3 (4.6-6.20); Red Cell Distribution Width 13.8 % (11.5-14.5)
[2021-01-20 07:46] LABS: Glucose Point of Care 124 mg/dl (65-105)
[2021-01-20] MEDS: PANTOPRAZOLE SODIUM IV 40 MG VIAL IV PUSH (08:28)
[2021-01-20] MEDS: HEPARIN SODIUM 5,000 UNITS/ML VIAL 5000 UNITS SUB-Q ×2 (08:32→20:23)
[2021-01-20] MEDS: BRIMONIDINE TARTRATE 0.2% OP SOLN 5 ML BTL 1 DROP EACH EYE ×2 (08:32→20:23)
[2021-01-20] MEDS: TIMOLOL MALEATE 0.5% OP SOLN 5 ML BOTTLE 1 DROP EACH EYE (08:32)
--- NOTE | 2021-01-20 09:06 | PCOTNOTE ---
OT evaluation attempted this AM. Patient refusing therapy at this time due to nausea and vomiting. Will attempt at later time.
--- NOTE | 2021-01-20 10:35 | PM.PNGS ---
Progress Note: A&P Assessment and Plan (1) Colonic mass: Code(s): K63.89 - Other specified diseases of intestine Status: Acute Assessment and Plan: Awaiting return of bowel function. Not tolerating much oral intake. Continue liquids and PPN. Encouraged increasing activity and working with therapy, continue PT/OT Pathology pending. Endoscopic biopsy from colonoscopy showed colonic adenocarcinoma. (2) Bowel obstruction: Qualifiers: Intestinal obstruction extent: partial Intestinal obstruction type: other intestinal obstruction Qualified Code(s): K56.690 - Other partial intestinal obstruction Code(s): K56.609 - Unspecified intestinal obstruction, unspecified as to partial versus complete obstruction Status: Acute Additional Plan I have discussed the patient's case and plan of care with Dr. Upton. Subjective Subjective Date/Time Seen: 01/20/21 10:35 Post Op day: 2 Patient reports: voiding w/o difficulty, no flatus, no bowel movement and nausea Interval history: Patient seen today and reporting a lot of reflux and nausea. He refused his breakfast because he was worried he would vomit any liquids he took in. No flatus. Pain controlled. Has not been moving much and has not gotten out of bed yet today. He reports being up to the chair x 2 yesterday. No other complaints. Review of Systems Review of Systems: All systems reviewed & are unremarkable except as noted in HPI and below Constitutional: Constitutional: Denies fever(s) Cardiovascular: Cardiovascular: Reports no additional cardiovascular complaints, Denies chest pain and Denies leg edema Respiratory: Respiratory: Reports no additional respiratory complaints, Denies cough and Denies dyspnea Gastrointestinal: Gastrointestinal: Reports as per HPI, Reports no additional gastrointestinal complaints, Reports belching, Reports nausea and Denies vomiting Neurologic: Denies Abnormal speech present and Denies focal weakness Exam Const: General: no acute distress, alert and awake Orientation/consciousness: patient oriented x3 GI: Inspection: incision (Abdominal incisions clean and dry) and other (mildly distended) GI Palp: Yes Soft to palpation, Yes Tenderness to palpation present (GI) (expected incisional) and No Guarding due to palpation present (GI) Auscultation: normal bowel sounds Neuro: General: moves all extremities and no focal motor deficits Extrem: General: no clubbing, cyanosis or edema and no calf tenderness Psych: Mental Status: mental status grossly normal Insight: Good insight present (Psych) Judgement: Good judgement present (Psych) Objective Data Vital Signs Vital Signs: Vital Signs - 24 hr 01/19/21 14:00 01/19/21 21:47 01/20/21 06:00 Temperature 98.1 F 97.3 F L 97.0 F L Pulse Rate 65 65 76 Respiratory Rate 16 16 18 Blood Pressure 121/63 148/72 H 155/75 H Pulse Oximetry 100 98 98 Intake/Output Intake/Output: Intake & Output 01/17/21 01/18/21 01/19/21 01/20/21 23:59 23:59 23:59 23:59 Intake Total 2750 2850 2750 240 Output Total 7326 028 3279 800 Balance 1450 2085 650 -560 Meds/Results Medications: Active Medications Generic Name Dose Route Start Last Admin Trade Name Freq PRN Reason Stop Dose Admin Acetaminophen 1,000 mg 01/18/21 17:00 01/20/21 05:14 Acetaminophen 500 Mg Tablet PO 1,000 mg Q6H GEMINI Administration Brimonidine Tartrate 1 drop 01/20/21 09:00 01/20/21 08:32 Brimonidine Tartrate 0.2% Op Soln 5 Ml Btl EACH EYE 1 drop Q12HR GEMINI Administration Heparin Sodium (Porcine) 5,000 units 01/17/21 21:00 01/20/21 08:32 Heparin Sodium 5,000 Units/Ml Vial SUB-Q 5,000 units Q12HR GEMINI Administration Dextrose 1,000 mls @ 50 mls/hr 01/15/21 15:47 Dextrose 10% IV CONT .Q20H PRN if PN is interrupted Amino Acids/Electrolytes/Dextrose 2,000 mls @ 80 mls/hr 01/15/21 15:50 01/19/21 15:38 Clinimix E 4.25%/5% Solution IV CONT 80 mls/hr
[2021-01-20 11:44] LABS: Glucose Point of Care 111 mg/dl (65-105)
[2021-01-20 14:00] VITALS: BP 117/64; PULSE 68; RESP 20; TEMP 36.8; O2SAT 100
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
[2021-01-20 15:51] LABS: Triglycerides 143 mg/dL (<150)
[2021-01-20] MEDS: AMINO ACIDS 4.25%/D5W/LYTES/CA 2,000 ML 80 ML IV CONT (16:04)
[2021-01-20] MEDS: FAT EMULSIONS IV 20% 250 ML 20.83 ML IVPB (16:05)
[2021-01-20 16:51] LABS: Glucose Point of Care 123 mg/dl (65-105)
[2021-01-20] MEDS: SUCRALFATE 1 GM TABLET PO ×2 (17:45→20:22)
[2021-01-20] MEDS: LATANOPROST 0.005% OP SOLN 2.5 ML BTL 1 DROP EACH EYE (20:22)
[2021-01-20 21:08] VITALS: BP 149/90; PULSE 73; RESP 18; TEMP 36.4; O2SAT 99
[2021-01-20 23:49] LABS: Glucose Point of Care 119 mg/dl (65-105)
[2021-01-21 05:23] VITALS: BP 144/73; PULSE 79; RESP 18; TEMP 36.8; O2SAT 97
[2021-01-21] MEDS: SUCRALFATE 1 GM TABLET PO ×4 (05:36→21:36)
[2021-01-21] MEDS: ACETAMINOPHEN 500 MG TABLET 1000 MG PO ×3 (05:36→17:02)
[2021-01-21 06:05] LABS: Glucose Point of Care 111 mg/dl (65-105)
[2021-01-21 06:50] LABS: Anion Gap 8 mmol/L (8-16); Blood Urea Nitrogen 28 mg/dL (9-20); Calcium 8.7 mg/dL (8.4-10.2); Carbon Dioxide 24 mmol/L (22-30); Chloride 106 mmol/L (98-107); Estimated CRCL calculation 68 ml/min; Estimated Glomerular Filt Rate > 60; Glucose 108 mg/dL (65-110); Potassium 3.8 mmol/L (3.4-5.0); Sodium 138 mmol/L (137-145)
--- NOTE | 2021-01-21 08:06 | PM.PNGS ---
Progress Note: A&P Assessment and Plan (1) Adenocarcinoma, colon: Code(s): C18.9 - Malignant neoplasm of colon, unspecified Status: Acute Assessment and Plan: Will get KUB this AM and give Dulcolax suppository Encouraged more ambulation Await return of bowel function Final pathology and stage pending (2) Postoperative ileus: Code(s): K91.89 - Other postprocedural complications and disorders of digestive system; K56.7 - Ileus, unspecified Status: Acute Assessment and Plan: Continue PPN until able to tolerate full liquids and bowels moving Subjective Subjective Date/Time Seen: 01/21/21 08:06 Interval history: still no flatus or BM. Not hungry and not taking much PO. Feeling acid reflux and hiccups. Not much pain except at incisions. Exam GI: Inspection: incision (intact with glue) and other (mildly distended) Auscultation: Hypoactive bowel sounds present Objective Data Vital Signs Vital Signs: Vital Signs - 24 hr 01/20/21 14:00 01/20/21 21:08 01/21/21 05:23 Temperature 36.8 C 36.4 C 36.8 C Pulse Rate 68 73 79 Respiratory Rate 20 18 18 Blood Pressure 117/64 149/90 H 144/73 H Pulse Oximetry 100 99 97 Intake/Output Intake/Output: Intake & Output 01/18/21 01/19/21 01/20/21 01/21/21 23:59 23:59 23:59 23:59 Intake Total 2850 2750 3070 150 Output Total 765 2100 1620 850 Balance 2085 650 1450 -700 Meds/Results Medications: Active Medications Generic Name Dose Route Start Last Admin Trade Name Freq PRN Reason Stop Dose Admin Acetaminophen 1,000 mg 01/18/21 17:00 01/21/21 05:36 Acetaminophen 500 Mg Tablet PO 1,000 mg Q6H GEMINI Administration Bisacodyl 10 mg 01/21/21 08:04 Bisacodyl 10 Mg Suppository RECTAL 01/21/21 08:05 ONCE ONE Brimonidine Tartrate 1 drop 01/20/21 09:00 01/20/21 20:23 Brimonidine Tartrate 0.2% Op Soln 5 Ml Btl EACH EYE 1 drop Q12HR GEMINI Administration Heparin Sodium (Porcine) 5,000 units 01/17/21 21:00 01/20/21 20:23 Heparin Sodium 5,000 Units/Ml Vial SUB-Q 5,000 units Q12HR GEMINI Administration Dextrose 1,000 mls @ 50 mls/hr 01/15/21 15:47 Dextrose 10% IV CONT .Q20H PRN if PN is interrupted Amino Acids/Electrolytes/Dextrose 2,000 mls @ 80 mls/hr 01/15/21 15:50 01/20/21 16:04 Clinimix E 4.25%/5% Solution IV CONT 80 mls/hr .Q24H GEMINI Administration Protocol Fat Emulsion Intravenous 250 mls @ 20.833 mls/hr 01/15/21 16:00 01/20/21 16:05 Lipids 20% IVPB 20.83 mls/hr Q24H GEMINI Administration Insulin Human Regular 0 units 01/15/21 18:00 01/21/21 06:05 Insulin Human Regular (*Bkc) 100 Units/Ml SUB-Q Not Given Q6HR [facility] Protocol Latanoprost 1 drop 01/15/21 21:00 01/20/21 20:22 Latanoprost 0.005% Op Soln 2.5 Ml Btl EACH EYE 1 drop HS GEMINI Administration Lorazepam 0.5 mg 01/15/21 15:47 01/15/21 23:52 Lorazepam Inj (*Crx) 2 Mg/Ml Vial IV PUSH 0.5 mg Q6H PRN Administration Anxiety Morphine Sulfate 2 mg 01/18/21 16:18 01/18/21 17:25 Morphine Sulfate (*Crx) 2 Mg/Ml Inj IV PUSH 2 mg Q2H PRN Administration Pain Rated 4-6 Morphine Sulfate 4 mg 01/18/21 16:18 Morphine Sulfate (*Crx) 4 Mg/Ml Inj IV PUSH Q2H PRN Pain Rated 7-10 Ondansetron HCl 4 mg 01/14/21 23:46 01/20/21 03:28 Ondansetron Inj 4 Mg/2 Ml Vial IV PUSH 4 mg Q4H PRN Administration Nausea Pantoprazole Sodium 40 mg 01/17/21 13:45 01/20/21 08:28 Pantoprazole Sodium Iv 40 Mg Vial IV PUSH 40 mg QAM GEMINI Administration Sucralfate 1 gm 01/20/21 16:30 01/21/21 05:36 Sucralfate 1 Gm Tablet PO 1 gm ACHS GEMINI Administration Timolol Maleate 1 drop 01/15/21 09:00 01/20/21 08:32 Timolol Maleate 0.5% Op Soln 5 Ml Bottle EACH EYE 1 drop DAILY GEMINI Administration Radiology Results: ITS Impressions Abdomen/Pelvis CT 01/14/21 22:15 IMPRESSION: 1. Ascending colonic mass probably adenocarcinoma, cou
[2021-01-21] MEDS: HEPARIN SODIUM 5,000 UNITS/ML VIAL 5000 UNITS SUB-Q ×2 (08:32→21:37)
[2021-01-21] MEDS: ONDANSETRON INJ 4 MG/2 ML VIAL IV PUSH (08:32)
[2021-01-21] MEDS: PANTOPRAZOLE SODIUM IV 40 MG VIAL IV PUSH (08:32)
[2021-01-21] MEDS: BRIMONIDINE TARTRATE 0.2% OP SOLN 5 ML BTL 1 DROP EACH EYE ×2 (08:33→21:37)
[2021-01-21] MEDS: BISACODYL 10 MG SUPPOSITORY RECTAL (08:33)
[2021-01-21] MEDS: TIMOLOL MALEATE 0.5% OP SOLN 5 ML BOTTLE 1 DROP EACH EYE (08:33)
--- NOTE | 2021-01-21 11:46 | PCNFU ---
Nutrition Follow-Up Complete: Altered GI function as related to Bowel Obstruction as evidenced by PPN/NGT. Goal: Meet estimated nutritional needs Patient progressing towards goal. We will continue current goal. Pt current nutrition is PPN with clear liquids. Last recorded weight is 74.3 kg, up from 73.1 kg on admit. Bowel Motility:NO BM reported. Suppository given today. Labs Reviewed:BUN 28 Meds Noted:Clinimix E 4.25/5 with 250 ml Lipid Emulsion, Protonix, Heparin. Additional Notes: Nutrition follow up. Patient had been on full liquids unable to tolerate, now on clear liquids. KUB ordered- showing Ileus. Patient receiving PPN providing 1153 kcals and 82 gms protein. Recommend Central line TPN-Clinimix 5/15 E at 90mL/hr with 250mL 20% lipids daily for 2034kcal and 108g protein daily. Will monitor every Sunday and Sunday.
[2021-01-21 12:43] LABS: Glucose Point of Care 98 mg/dl (65-105)
[2021-01-21 14:00] VITALS: BP 141/71; PULSE 68; RESP 20; TEMP 37.1; O2SAT 100
--- NOTE | 2021-01-21 14:17 | WPDGIPROGNO ---
Progress Note: A&P Assessment and Plan (1) Adenocarcinoma, colon: Code(s): C18.9 - Malignant neoplasm of colon, unspecified Status: Acute Assessment and Plan: s/p hand assisted laparoscopic right hemicolectomy with ileocolic anastomosis with negative lymph nodes patient will follow-up with oncology passing flatus and tolerating liquid diet- per surgery (2) Postoperative ileus: Code(s): K91.89 - Other postprocedural complications and disorders of digestive system; K56.7 - Ileus, unspecified Status: Acute Assessment and Plan: by surgery, better (3) Weight loss: Code(s): R63.4 - Abnormal weight loss Status: Acute (4) Nausea & vomiting: Code(s): R11.2 - Nausea with vomiting, unspecified Status: Acute Assessment and Plan: improved after surgery Subjective Date/time seen: 01/21/21 14:17 Interval history: on liquid diet, he is passing gas and had small amount of stool start suppository Review of Systems Review of Systems: All systems reviewed & are unremarkable except as noted in HPI and below Exam Const: General: comfortable and no acute distress HENMT: General nose exam: Normal nares present Eyes: Sclera: sclerae normal Neck: Neck: supple Resp: Auscultation: clear to auscultation bilaterally Cardio: Rate: regular rate GI: GI Palp: Yes Soft to palpation Other: incision intact, mild distended, hypoactive sounds Skin: General skin exam: normal color Neuro: Speech: normal speech Extrem: General: normal to inspection Psych: Mental Status: mental status grossly normal Objective Data Vital Signs Vital Signs: Vital Signs - 24 hr 01/20/21 21:08 01/21/21 05:23 Temperature 97.6 F 98.3 F Pulse Rate 73 79 Respiratory Rate 18 18 Blood Pressure 149/90 H 144/73 H Pulse Oximetry 99 97 Intake/Output Intake/Output: Intake & Output 01/18/21 01/19/21 01/20/21 01/21/21 23:59 23:59 23:59 23:59 Intake Total 2850 2750 3070 150 Output Total 765 2100 1620 850 Balance 2085 650 1450 -700 Meds/Results Medications: Active Medications Generic Name Dose Route Start Last Admin Trade Name Freq PRN Reason Stop Dose Admin Acetaminophen 1,000 mg 01/18/21 17:00 01/21/21 12:46 Acetaminophen 500 Mg Tablet PO 1,000 mg Q6H GEMINI Administration Brimonidine Tartrate 1 drop 01/20/21 09:00 01/21/21 08:33 Brimonidine Tartrate 0.2% Op Soln 5 Ml Btl EACH EYE 1 drop Q12HR GEMINI Administration Heparin Sodium (Porcine) 5,000 units 01/17/21 21:00 01/21/21 08:32 Heparin Sodium 5,000 Units/Ml Vial SUB-Q 5,000 units Q12HR GEMINI Administration Dextrose 1,000 mls @ 50 mls/hr 01/15/21 15:47 Dextrose 10% IV CONT .Q20H PRN if PN is interrupted Amino Acids/Electrolytes/Dextrose 2,000 mls @ 80 mls/hr 01/15/21 15:50 01/20/21 16:04 Clinimix E 4.25%/5% Solution IV CONT 80 mls/hr .Q24H GEMINI Administration Protocol Fat Emulsion Intravenous 250 mls @ 20.833 mls/hr 01/15/21 16:00 01/20/21 16:05 Lipids 20% IVPB 20.83 mls/hr Q24H GEMINI Administration Insulin Human Regular 0 units 01/15/21 18:00 01/21/21 12:47 Insulin Human Regular (*Bkc) 100 Units/Ml SUB-Q Not Given Q6HR [facility] Protocol Latanoprost 1 drop 01/15/21 21:00 01/20/21 20:22 Latanoprost 0.005% Op Soln 2.5 Ml Btl EACH EYE 1 drop HS GEMINI Administration Lorazepam 0.5 mg 01/15/21 15:47 01/15/21 23:52 Lorazepam Inj (*Crx) 2 Mg/Ml Vial IV PUSH 0.5 mg Q6H PRN Administration Anxiety Morphine Sulfate 2 mg 01/18/21 16:18 01/18/21 17:25 Morphine Sulfate (*Crx) 2 Mg/Ml Inj IV PUSH 2 mg Q2H PRN Administration Pain Rated 4-6 Morphine Sulfate 4 mg 01/18/21 16:18 Morphine Sulfate (*Crx) 4 Mg/Ml Inj IV PUSH Q2H PRN Pain Rated 7-10 Ondansetron HCl 4 mg 01/14/21 23:46 01/21/21 08:32 Ondansetron Inj 4 Mg/2 Ml Vial IV PUSH 4 mg Q4H PRN Administration Nausea Pantoprazole S
[2021-01-21] MEDS: AMINO ACIDS 4.25%/D5W/LYTES/CA 2,000 ML 80 ML IV CONT (17:03)
[2021-01-21] MEDS: FAT EMULSIONS IV 20% 250 ML 20.83 ML IVPB (17:03)
--- NOTE | 2021-01-21 17:39 | PDONCCN ---
HPI - Date of Consult Date/Time: 01/21/21 17:39 Requesting Physician: Rena Anders DO Primary Care Provider: PHYSICIAN NOT ON STAFF - Consult Narrative Reason for consult: Colon cancer. Narrative: Chino Mitchell is a 75 year old male with history of hypertension hyperlipidemia and has been legally blind came into the urgent care initially for constipation for 4 days and then sent to the ER. Ki with was done that showed small bowel obstruction. Patient was also having some intermittent nausea and abdominal discomfort. CT abdomen and pelvis showed ascending colon mass with low-grade obstruction. There was small left renal mass suspicious for renal cell carcinoma. Urology service was consulted and recommended follow-up CT scan in 6-12 weeks after discharge. Colonoscopy was performed on January 17 that showed near obstructing large fungating mass in the ascending colon and biopsies were taken. Biopsy came back positive for adenocarcinoma of colon. Patient had right hemicolectomy done on January 18 that showed moderately differentiated adenocarcinoma of colon without lymphovascular invasion and perineural invasion. Twenty-two lymph nodes were examined and all negative for malignancy. Patient is recovering well from the surgery. Review of Systems - Review of Systems All systems reviewed & are unremarkable except as noted in HPI and bel - Neurologic Reports hearing normal, Reports weakness, Denies abnormal speech, Denies confusion, Denies headache(s), Denies focal weakness [facility] Medical History: Medical History (Last Updated 01/18/21 @ 12:40 by Kel Mcgrath MD) Anorexia Essential hypertension Glaucoma Hyperlipidemia Legally blind Nausea & vomiting Weight loss Surgical History: Surgical History (Last Reviewed 01/17/21 @ 11:53 by Kamran Yadav MD) History of eye surgery history of multiple bilateral eye surgeries History of facial surgery due to trauma Family History: Family History (Last Reviewed 01/17/21 @ 11:53 by Kamran Yadav MD) Mother , 2003 Old age when she was in her 90s Father , 2002 Old age when he was in his 90s Sibling No active medical problems brother that pt lives with.. nothing significant - Social History Social History: Social History (Last Reviewed 01/17/21 @ 11:53 by Kamran Yadav MD) Gender Identity: Gender identity (if verbalized by the patient): Male Alcohol Use: Alcohol intake: current Drinks per week: 1 Substance Use: Substance use: never Others: Spiritual care concerns: No Smoking Status: Smoking status: Former smoker Meds Home Medications Medication Instructions Recorded Confirmed Type amlodipine 10 mg PO DAILY 01/14/21 01/15/21 History brimonidine 0.2 drp OPHTHALMIC (EYE) BID 01/14/21 01/19/21 History latanoprost 0.005 drp EACH EYE DAILY 01/14/21 01/15/21 History losartan 100 mg PO DAILY 01/14/21 01/15/21 History pravastatin 20 mg PO DAILY 01/14/21 01/15/21 History timolol maleate 0.5 drp EACH EYE DAILY 01/14/21 01/15/21 History zolpidem 10 mg PO HS PRN 01/15/21 01/15/21 History Allergies Allergy/AdvReac Type Severity Reaction Status Date / Time No Known Allergies Allergy Verified 01/18/21 11:23 Results - Labs CBC & Chem 7: 01/20/21 06:06 01/21/21 06:08 Labs: BMP 01/21/21 06:08 Sodium 138 Potassium 3.8 Chloride 106 Carbon Dioxide 24 BUN 28 H Creatinine 0.80 Glucose 108 Calcium 8.7 Assessment and Plan - Additional Plan T3 N0 MX stage II moderately differentiated adenocarcinoma of colon without perineural invasion and lymphovascular invasion. Twenty-two lymph node examine all negative for malignancy. MSI testing results are pending. Nausea status post right sided hemicolectomy done on January 18, 2021. CT abdomen done on January 14 showed ascending colon mass with low-grade obstruction and small l
[2021-01-21 18:33] LABS: Glucose Point of Care 115 mg/dl (65-105)
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
[2021-01-21] MEDS: LATANOPROST 0.005% OP SOLN 2.5 ML BTL 1 DROP EACH EYE (21:36)
[2021-01-21] MEDS: HYDROcodone/acetaminophen (*CRX) 5-325 MG TABLET 1 TAB PO (21:36)
[2021-01-21] MEDS: SIMETHICONE 80 MG TAB.CHEW PO (21:36)
[2021-01-21 22:00] VITALS: BP 149/66; PULSE 70; RESP 18; TEMP 36.7; O2SAT 99
[2021-01-22 01:58] LABS: Glucose Point of Care 100 mg/dl (65-105)
[2021-01-22] MEDS: ACETAMINOPHEN 500 MG TABLET 1000 MG PO ×3 (05:35→18:48)
[2021-01-22] MEDS: SUCRALFATE 1 GM TABLET PO ×4 (05:36→20:22)
[2021-01-22] MEDS: ONDANSETRON INJ 4 MG/2 ML VIAL IV PUSH (05:40)
[2021-01-22 05:55] LABS: Glucose Point of Care 106 mg/dl (65-105)
[2021-01-22 05:59] LABS: Hematocrit 28.5 % (42.0-52.0); Hemoglobin 9.5 g/dL (14.0-18.0); Mean Corpuscular HGB Conc 33.3 g/dl (32-36); Mean Corpuscular Hemoglobin 29.7 pg (26-34); Mean Corpuscular Volume 89.1 fl (80-100); Mean Platelet Volume 10.4 fl (7.4-10.4); Platelet Count Result 239 k/mm3 (150-375); Red Cell Distribution Width 13.4 % (11.5-14.5); White Blood Count 8.2 K/mm3 (4.5-10.0)
[2021-01-22 06:00] VITALS: BP 135/64; PULSE 70; RESP 18; TEMP 36.8; O2SAT 100
[2021-01-22 06:19] LABS: Anion Gap 5 mmol/L (8-16); Blood Urea Nitrogen 24 mg/dL (9-20); Calcium 8.2 mg/dL (8.4-10.2); Carbon Dioxide 23 mmol/L (22-30); Chloride 109 mmol/L (98-107); Estimated CRCL calculation 77 ml/min; Estimated Glomerular Filt Rate > 60; Glucose 103 mg/dL (65-110); Sodium 137 mmol/L (137-145)
[2021-01-22] MEDS: HYDROcodone/acetaminophen (*CRX) 5-325 MG TABLET 1 TAB PO ×2 (08:32→20:22)
[2021-01-22] MEDS: SIMETHICONE 80 MG TAB.CHEW PO ×4 (08:33→20:22)
[2021-01-22] MEDS: PANTOPRAZOLE SODIUM IV 40 MG VIAL IV PUSH (08:34)
[2021-01-22] MEDS: TIMOLOL MALEATE 0.5% OP SOLN 5 ML BOTTLE 1 DROP EACH EYE (08:35)
[2021-01-22] MEDS: HEPARIN SODIUM 5,000 UNITS/ML VIAL 5000 UNITS SUB-Q ×2 (08:35→20:22)
[2021-01-22] MEDS: PROMETHAZINE HCL 25 MG/ML AMPUL 12.5 MG IV PUSH ×3 (08:36→18:48)
[2021-01-22] MEDS: BRIMONIDINE TARTRATE 0.2% OP SOLN 5 ML BTL 1 DROP EACH EYE ×2 (08:36→20:22)
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
--- NOTE | 2021-01-22 09:53 | PM.PNGS ---
Progress Note: A&P Assessment and Plan (1) Adenocarcinoma, colon: Code(s): C18.9 - Malignant neoplasm of colon, unspecified Status: Acute Assessment and Plan: give Dulcolax suppository Encouraged more ambulation Await return of bowel function Final pathology colon T3, N0, M0 adenocarcinoma of the right colon with 22 lymph nodes negative. (2) Postoperative ileus: Code(s): K91.89 - Other postprocedural complications and disorders of digestive system; K56.7 - Ileus, unspecified Status: Acute Assessment and Plan: Continue PPN until able to tolerate full liquids and bowels moving Subjective Subjective Date/Time Seen: 01/22/21 09:53 Post Op day: 4 (Status post hand assisted laparoscopic right hemicolectomy.) Patient reports: flatus, no bowel movement and nausea ( mild) Interval history: patient lying in bed when I entered the room. He states that earlier he had some nausea and a little vomiting. He has not had a bowel movement today but states he had a small 1 yesterday. Apparently working with PT but not walking a lot in the hallway. Review of Systems Review of Systems: All systems reviewed & are unremarkable except as noted in HPI and below Constitutional: Constitutional: Denies fever(s) and Reports weight loss Eyes: Eyes: Denies change in vision ENT: Denies hearing loss, Denies neck pain and Denies sore throat Cardiovascular: Cardiovascular: Reports no additional cardiovascular complaints, Denies chest pain, Denies leg edema and Denies dyspnea Respiratory: Respiratory: Reports no additional respiratory complaints, Denies cough, Denies dyspnea and Denies wheezing Gastrointestinal: Gastrointestinal: Reports as per HPI, Reports no additional gastrointestinal complaints, Reports belching, Reports nausea and Reports vomiting ( One episode early this morning) Comments: small bowel movement yesterday. Genitourinary: Genitourinary: Denies hematuria and Denies dysuria Musculoskeletal: Musculoskeletal: Denies arthralgias, Denies joint swelling and Denies neck pain Neurologic: Denies Abnormal speech present and Denies focal weakness Allergic/Immunologic: Allergic/Immunologic: Denies wheezing Exam Const: General: no acute distress, alert and awake; No acute distress Limitations: no limitations HENMT: Head: normocephalic and atraumatic Ears: hearing grossly normal bilaterally General nose exam: Normal external nose present and Normal nares present Mouth: Yes Normal oral and palatal mucosa present and Yes moist mucous membranes Eyes: General: appearance normal, both eyes and all related structures Conjunctivae: conjunctivae normal Sclera: sclerae normal Pupils: Equal, round and reactive pupils present EOM: EOMs intact bilaterally Neck: Neck: normal visual inspection, full ROM, no lymphadenopathy, supple and no JVD Lymphatic: no lymphadenopathy noted Chest: Chest palpation & inspection: normal inspection of the chest Resp: Effort & Inspection: normal respiratory effort and able to speak in complete sentences Auscultation: clear to auscultation bilaterally Percussion: percussion normal Cardio: Jugular venous distension: no JVD Rate: regular rate Rhythm: regular rhythm Heart sounds: S1 normal heart sound present and S2 normal heart sound present GI: Inspection: normal to inspection, incision (intact with glue, No erythema) and other (mildly distended) GI Palp: Yes abdominal tenderness ( mild in central abdomen) Auscultation: Hypoactive bowel sounds present : General: Yes no CVA tenderness Back/Spine/Pelvis: Back: no CVA tenderness Skin: General skin exam: normal color and dry skin Neuro: General: gait normal, moves all extremities, no focal motor deficits and CN's II-XI intact bilaterally Cranial nerves: Yes Equal, round and reactive pupils present Speech: normal speech and No Abnormal speech present Extrem: General: normal to inspection, capillary refill normal, no c
[2021-01-22 11:59] LABS: Glucose Point of Care 94 mg/dl (65-105)
[2021-01-22 14:00] VITALS: BP 134/62; PULSE 66; RESP 18; TEMP 36.6; O2SAT 100
[2021-01-22] MEDS: AMINO ACIDS 4.25%/D5W/LYTES/CA 2,000 ML 80 ML IV CONT (15:21)
[2021-01-22] MEDS: FAT EMULSIONS IV 20% 250 ML 20.83 ML IVPB (15:22)
[2021-01-22 16:05] LABS: Triglycerides 190 mg/dL (<150)
[2021-01-22 18:34] LABS: Glucose Point of Care 95 mg/dl (65-105)
[2021-01-22] MEDS: LOSARTAN POTASSIUM 100 MG TABLET PO (18:47)
[2021-01-22] MEDS: amLODIPine BESYLATE 5 MG TABLET 10 MG PO (18:47)
[2021-01-22] MEDS: PRAVASTATIN SODIUM 20 MG TABLET PO (18:47)
[2021-01-22] MEDS: LATANOPROST 0.005% OP SOLN 2.5 ML BTL 1 DROP EACH EYE (20:22)
[2021-01-22 22:00] VITALS: BP 151/73; PULSE 71; RESP 18; TEMP 36.7; O2SAT 100
[2021-01-23] MEDS: ACETAMINOPHEN 500 MG TABLET 1000 MG PO ×2 (04:57→18:58)
[2021-01-23 05:58] LABS: Glucose Point of Care 98 mg/dl (65-105)
[2021-01-23] MEDS: SUCRALFATE 1 GM TABLET PO ×2 (05:58→21:07)
[2021-01-23 06:00] VITALS: BP 150/73; PULSE 75; RESP 18; TEMP 36.7; O2SAT 100
[2021-01-23 06:55] LABS: Anion Gap 7 mmol/L (8-16); Blood Urea Nitrogen 20 mg/dL (9-20); Calcium 8.2 mg/dL (8.4-10.2); Carbon Dioxide 20 mmol/L (22-30); Chloride 110 mmol/L (98-107); Estimated CRCL calculation 77 ml/min; Estimated Glomerular Filt Rate > 60; Glucose 96 mg/dL (65-110); Potassium 5.1 mmol/L (3.4-5.0); Sodium 137 mmol/L (137-145)
[2021-01-23] MEDS: SIMETHICONE 80 MG TAB.CHEW PO ×3 (09:10→21:07)
[2021-01-23] MEDS: HYDROcodone/acetaminophen (*CRX) 5-325 MG TABLET 1 TAB PO (09:10)
[2021-01-23] MEDS: HEPARIN SODIUM 5,000 UNITS/ML VIAL 5000 UNITS SUB-Q ×2 (09:10→21:07)
[2021-01-23] MEDS: PROMETHAZINE HCL 25 MG/ML AMPUL 12.5 MG IV PUSH ×2 (09:10→18:58)
[2021-01-23] MEDS: BRIMONIDINE TARTRATE 0.2% OP SOLN 5 ML BTL 1 DROP EACH EYE ×2 (09:11→21:07)
[2021-01-23] MEDS: TIMOLOL MALEATE 0.5% OP SOLN 5 ML BOTTLE 1 DROP EACH EYE (09:11)
[2021-01-23] MEDS: PANTOPRAZOLE SODIUM IV 40 MG VIAL IV PUSH (09:12)
[2021-01-23 11:27] LABS: Glucose Point of Care 98 mg/dl (65-105)
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
[2021-01-23 14:00] VITALS: BP 110/85; PULSE 68; RESP 16; TEMP 36.6; O2SAT 100
[2021-01-23] MEDS: AMINO ACIDS 4.25%/D5W/LYTES/CA 2,000 ML 80 ML IV CONT (16:27)
[2021-01-23] MEDS: FAT EMULSIONS IV 20% 250 ML 20.83 ML IVPB (16:28)
[2021-01-23 17:37] LABS: Glucose Point of Care 94 mg/dl (65-105)
[2021-01-23] MEDS: LATANOPROST 0.005% OP SOLN 2.5 ML BTL 1 DROP EACH EYE (21:07)
[2021-01-23] MEDS: METOCLOPRAMIDE HCL 5 MG TABLET PO (21:07)
[2021-01-23 21:37] VITALS: BP 139/68; PULSE 71; RESP 20; TEMP 36.2; O2SAT 100
[2021-01-23 23:44] LABS: Glucose Point of Care 115 mg/dl (65-105)
--- NOTE | 2021-01-24 00:34 | PM.PNGS ---
Progress Note: A&P Assessment and Plan (1) Adenocarcinoma, colon: Onset Date: ~12/2020 Code(s): C18.9 - Malignant neoplasm of colon, unspecified Status: Acute Assessment and Plan: give Dulcolax suppository Encouraged more ambulation Await return of bowel function Final pathology colon T3, N0, M0 adenocarcinoma of the right colon with 22 lymph nodes negative. (Discussed with patient on 01/22/2021 (2) Postoperative ileus: Onset Date: ~12/2020 Code(s): K91.89 - Other postprocedural complications and disorders of digestive system; K56.7 - Ileus, unspecified Status: Acute Assessment and Plan: Continue PPN until able to tolerate full liquids and bowels moving. Additional Plan will try giving the patient a small dose of Reglan 15 minutes to an hour prior to each meal and at HS. ( I have asked the nurse to not give it near the promethazine wishes previously ordered for his constant nausea. The two of these can interact to cause some tardive dyskinesia). Subjective Subjective Date/Time Seen: 01/23/21 14:34 Post Op day: 5 Patient reports: no new complaints and bowel movement ( 1 small one earlier today) Interval history: patient more alert today. States he has walked in the room. His willing to walk in the hallway. His getting a little bit stronger. Trying to take some liquids but still somewhat hesitant. Review of Systems Review of Systems: All systems reviewed & are unremarkable except as noted in HPI and below Constitutional: Constitutional: Denies fever(s) and Reports weight loss Eyes: Eyes: Denies change in vision ENT: Denies hearing loss, Denies neck pain and Denies sore throat Cardiovascular: Cardiovascular: Reports no additional cardiovascular complaints, Denies chest pain, Denies leg edema and Denies dyspnea Respiratory: Respiratory: Reports no additional respiratory complaints, Denies cough, Denies dyspnea and Denies wheezing Gastrointestinal: Gastrointestinal: Reports as per HPI, Reports no additional gastrointestinal complaints, Reports belching and Reports nausea Genitourinary: Genitourinary: Reports no additional male genitourinary complaints, Denies hematuria and Denies dysuria Musculoskeletal: Musculoskeletal: Denies arthralgias, Denies joint swelling and Denies neck pain Neurologic: Denies Abnormal speech present and Denies focal weakness Allergic/Immunologic: Allergic/Immunologic: Denies wheezing Exam Const: General: no acute distress, alert and awake; No acute distress Limitations: no limitations HENMT: Head: normocephalic and atraumatic Ears: hearing grossly normal bilaterally General nose exam: Normal external nose present and Normal nares present Mouth: Yes Normal oral and palatal mucosa present and Yes moist mucous membranes Eyes: General: appearance normal, both eyes and all related structures Conjunctivae: conjunctivae normal Sclera: sclerae normal Pupils: Equal, round and reactive pupils present EOM: EOMs intact bilaterally Neck: Neck: normal visual inspection, full ROM, no lymphadenopathy, supple and no JVD Lymphatic: no lymphadenopathy noted Chest: Chest palpation & inspection: normal inspection of the chest Resp: Effort & Inspection: normal respiratory effort and able to speak in complete sentences Auscultation: clear to auscultation bilaterally Percussion: percussion normal Cardio: Jugular venous distension: no JVD Rate: regular rate Rhythm: regular rhythm Heart sounds: S1 normal heart sound present and S2 normal heart sound present Peripheral pulses: Peripheral pulses 2+ throughout GI: Inspection: normal to inspection, incision (intact with glue, No erythema) and other (mildly distended) Auscultation: Hypoactive bowel sounds present : General: Yes no CVA tenderness Back/Spine/Pelvis: Back: no CVA tenderness Skin: General skin exam: normal color and dry skin Neuro: General: gait normal, moves all extremities, no
[2021-01-24 06:00] VITALS: BP 145/70; PULSE 66; RESP 16; TEMP 36.4; O2SAT 99
[2021-01-24 06:24] LABS: Glucose Point of Care 106 mg/dl (65-105)
[2021-01-24] MEDS: amLODIPine BESYLATE 5 MG TABLET 10 MG PO (08:47)
[2021-01-24] MEDS: SIMETHICONE 80 MG TAB.CHEW PO ×4 (08:47→21:03)
[2021-01-24] MEDS: PRAVASTATIN SODIUM 20 MG TABLET PO (08:47)
[2021-01-24] MEDS: TIMOLOL MALEATE 0.5% OP SOLN 5 ML BOTTLE 1 DROP EACH EYE (08:47)
[2021-01-24] MEDS: HEPARIN SODIUM 5,000 UNITS/ML VIAL 5000 UNITS SUB-Q ×2 (08:47→21:03)
[2021-01-24] MEDS: BRIMONIDINE TARTRATE 0.2% OP SOLN 5 ML BTL 1 DROP EACH EYE ×2 (08:47→21:04)
[2021-01-24] MEDS: LOSARTAN POTASSIUM 100 MG TABLET PO (08:47)
[2021-01-24] MEDS: PANTOPRAZOLE SODIUM IV 40 MG VIAL IV PUSH (08:48)
[2021-01-24 10:02] LABS: Basophils Percent Auto 0.2 % (0.2-1.2); Eosinophils Absolute Auto 0.4 K/mm3 (0-0.3); Hematocrit 29.1 % (42.0-52.0); Hemoglobin 9.7 g/dL (14.0-18.0); Immature Granulocyte Absolute 0.16 K/mm3 (0.00-0.031); Immature Granulocyte Percent A 1.7 % (0-0.5); Lymphocytes Absolute Auto 0.77 K/mm3 (0.9-3.2); Lymphocytes Percent Auto 8.1 % (18.3-44.2); Mean Corpuscular HGB Conc 33.3 g/dl (32-36); Mean Corpuscular Hemoglobin 30.1 pg (26-34); Mean Corpuscular Volume 90.4 fl (80-100); Mean Platelet Volume 10.4 fl (7.4-10.4); Monocytes Absolute Auto 0.8 K/mm3 (0.1-0.6); Monocytes Percent Auto 8.6 % (2.6-8.5); Neutrophils Absolute Auto 7.4 K/mm3 (1.3-6.7); Neutrophils Percent Auto 77.4 % (45.5-73.1); Platelet Count Result 268 k/mm3 (150-375); Red Blood Count 3.22 M/mm3 (4.6-6.20); Red Cell Distribution Width 13.6 % (11.5-14.5); White Blood Count 9.5 K/mm3 (4.5-10.0)
[2021-01-24 10:41] LABS: Anion Gap 7 mmol/L (8-16); Blood Urea Nitrogen 16 mg/dL (9-20); Calcium 8.5 mg/dL (8.4-10.2); Carbon Dioxide 20 mmol/L (22-30); Chloride 109 mmol/L (98-107); Estimated CRCL calculation 77 ml/min; Estimated Glomerular Filt Rate > 60; Glucose 113 mg/dL (65-110); Potassium 4.4 mmol/L (3.4-5.0); Sodium 136 mmol/L (137-145)
[2021-01-24 12:06] LABS: Glucose Point of Care 108 mg/dl (65-105)
[2021-01-24] MEDS: SUCRALFATE 1 GM TABLET PO ×3 (12:24→21:03)
[2021-01-24] MEDS: ACETAMINOPHEN 500 MG TABLET 1000 MG PO ×3 (12:25→23:54)
[2021-01-24] MEDS: polyethylene glycoL 3350 17 GM POWD.PACK PO (12:27)
[2021-01-24 14:00] VITALS: BP 117/60; PULSE 68; RESP 16; TEMP 37; O2SAT 99
[2021-01-24] MEDS: METOCLOPRAMIDE HCL 5 MG TABLET PO ×3 (14:50→21:03)
--- NOTE | 2021-01-24 15:31 | P.PNIM_ITS ---
Progress Note: A&P Assessment and Plan (1) Postoperative ileus: Onset Date: ~12/2020 Code(s): K91.89 - Other postprocedural complications and disorders of digestive system; K56.7 - Ileus, unspecified Status: Acute Assessment and Plan: abdominal x-ray with mildly distended central small-bowel most likely ileus. * Resolved. He is passing bowel movements * appreciate general surgeryconsultation * continue with daily MiraLax * Carafate and Reglan with meals * continue with Clinimix until better tolerating diet. Continue clear liquid diet and vanilla Ensure TID. * continue to encourage mobility. Out of bed for meals and frequent ambulation (2) Adenocarcinoma, colon: Onset Date: ~12/2020 Code(s): C18.9 - Malignant neoplasm of colon, unspecified Status: Acute Assessment and Plan: ascending colonic mass, probably adenocarcinoma causing low-grade obstruction noted on CT abdomen/ pelvis on 01/14/2021 * colonoscopy performed on 01/17/2021 which showed malignant-appearing colonic mass and ascending colon * he is s/p right hemicolectomy on 01/18/21 * Biopsy results: MODERATELY DIFFERENTIATED COLONIC ADENOCARCINOMA, 6.5 x 3.2 x 1.5 CM, IN ASCENDING COLON, INVADING THROUGH MUSCULARIS PROPRIA AND EXTENSIVELY INVOLVING PERICOLONIC FAT, NOT INVOLVING SEROSAL SURFACE OR RESECTION MARGINS. * Appreciate oncology consultation. Follow-up as an outpatient in 2-3 weeks * Cancer is T3 N0 MX stage to moderately differentiated adenocarcinoma of colon without perineural invasion and lymphovascular invasion (3) Left renal mass: Code(s): N28.89 - Other specified disorders of kidney and ureter Status: Acute Assessment and Plan: small left renal mass suspicious for renal cell cancer noted on CT abdomen/ pelvis on 01/14/2021 * appreciate urology consultation * Will hold further evaluation of this renal mass at this time pending evaluation/resolution of the colonic issues. * Plan for CT abdomen pelvis with and without contrast with renal mass protocol 6-12 weeks following discharge per urology recommendations * Outpatient urology follow-up will be arranged (4) ELVIRA (acute kidney injury): Code(s): N17.9 - Acute kidney failure, unspecified Status: Acute Assessment and Plan: creatinine was 1.6 at presentation, felt to be related to dehydration given poor p.o. intake prior to presentation * resolved. Creatinine normalized with IV fluids and has remained stable at 0.7-0.8 (5) Anxiety: Code(s): F41.9 - Anxiety disorder, unspecified Status: Acute Assessment and Plan: mood is stable at this time * p.o. Ativan available as needed (6) Essential hypertension: Code(s): I10 - Essential (primary) hypertension Status: Acute Assessment and Plan: blood pressure reviewed and has been well controlled. * continue amlodipine and losartan (7) Normocytic anemia: Code(s): D64.9 - Anemia, unspecified Status: Acute Assessment and Plan: suspect related to colon cancer * H&H remained stable with no evidence of blood loss. Vital signs stable. * Will check iron panel, B12, and folate Subjective Date/time seen: 01/24/21 15:31 Interval history: date of service: 01/24/2021 Chino Mitchell is a legally blind 75-year-old male with history of hypertension, hyperlipidemia, who is seen in follow-up for colon mass with recent diagnosis of adenocarcinoma of
--- NOTE | 2021-01-24 15:31 | PM.IMPN ---
Progress Note: A&P Assessment and Plan (1) Postoperative ileus: Onset Date: ~12/2020 Code(s): K91.89 - Other postprocedural complications and disorders of digestive system; K56.7 - Ileus, unspecified Status: Acute Assessment and Plan: abdominal x-ray with mildly distended central small-bowel most likely ileus. Resolved. He is passing bowel movements appreciate general surgeryconsultation continue with daily MiraLax Carafate and Reglan with meals continue with Clinimix until better tolerating diet. Continue clear liquid diet and vanilla Ensure TID. continue to encourage mobility. Out of bed for meals and frequent ambulation (2) Adenocarcinoma, colon: Onset Date: ~12/2020 Code(s): C18.9 - Malignant neoplasm of colon, unspecified Status: Acute Assessment and Plan: ascending colonic mass, probably adenocarcinoma causing low-grade obstruction noted on CT abdomen/ pelvis on 01/14/2021 colonoscopy performed on 01/17/2021 which showed malignant-appearing colonic mass and ascending colon he is s/p right hemicolectomy on 01/18/21 Biopsy results: MODERATELY DIFFERENTIATED COLONIC ADENOCARCINOMA, 6.5 x 3.2 x 1.5 CM, IN ASCENDING COLON, INVADING THROUGH MUSCULARIS PROPRIA AND EXTENSIVELY INVOLVING PERICOLONIC FAT, NOT INVOLVING SEROSAL SURFACE OR RESECTION MARGINS. Appreciate oncology consultation. Follow-up as an outpatient in 2-3 weeks Cancer is T3 N0 MX stage to moderately differentiated adenocarcinoma of colon without perineural invasion and lymphovascular invasion (3) Left renal mass: Code(s): N28.89 - Other specified disorders of kidney and ureter Status: Acute Assessment and Plan: small left renal mass suspicious for renal cell cancer noted on CT abdomen/ pelvis on 01/14/2021 appreciate urology consultation Will hold further evaluation of this renal mass at this time pending evaluation/resolution of the colonic issues. Plan for CT abdomen pelvis with and without contrast with renal mass protocol 6-12 weeks following discharge per urology recommendations Outpatient urology follow-up will be arranged (4) ELVIRA (acute kidney injury): Code(s): N17.9 - Acute kidney failure, unspecified Status: Acute Assessment and Plan: creatinine was 1.6 at presentation, felt to be related to dehydration given poor p.o. intake prior to presentation resolved. Creatinine normalized with IV fluids and has remained stable at 0.7-0.8 (5) Anxiety: Code(s): F41.9 - Anxiety disorder, unspecified Status: Acute Assessment and Plan: mood is stable at this time p.o. Ativan available as needed (6) Essential hypertension: Code(s): I10 - Essential (primary) hypertension Status: Acute Assessment and Plan: blood pressure reviewed and has been well controlled. continue amlodipine and losartan (7) Normocytic anemia: Code(s): D64.9 - Anemia, unspecified Status: Acute Assessment and Plan: suspect related to colon cancer H&H remained stable with no evidence of blood loss. Vital signs stable. Will check iron panel, B12, and folate Subjective Date/time seen: 01/24/21 15:31 Interval history: date of service: 01/24/2021 Chino Mitchell is a legally blind 75-year-old male with history of hypertension, hyperlipidemia, who is seen in follow-up for colon mass with recent diagnosis of adenocarcinoma of the right colon and postoperative ileus. he is doing fairly well today. He did have what he refers to as a medium sized bowel movement that was formed. he reported that he had to be just a little to pass the stool. Denied melena or hematochezia. He also complains of dysphagia with swallowing pills and occasionally with liquids. He has very poor appetite and is poorly tolerating clear liquids. He denies nausea or vomiting. No fevers or chills. He report
[2021-01-24 16:31] LABS: Triglycerides 130 mg/dL (<150)
[2021-01-24] MEDS: FAT EMULSIONS IV 20% 250 ML 20.83 ML IVPB (16:41)
[2021-01-24] MEDS: AMINO ACIDS 4.25%/D5W/LYTES/CA 2,000 ML 80 ML IV CONT (16:41)
[2021-01-24 17:46] LABS: Glucose Point of Care 101 mg/dl (65-105)
--- NOTE | 2021-01-24 20:06 | PM.PNGS ---
Progress Note: A&P Assessment and Plan (1) Adenocarcinoma, colon: Onset Date: ~12/2020 Code(s): C18.9 - Malignant neoplasm of colon, unspecified Status: Acute Assessment and Plan: Encouraged more ambulation Await return of bowel function (01/24 ---- seems improved) ---- will advance diet to fulls Final pathology colon T3, N0, M0 adenocarcinoma of the right colon with 22 lymph nodes negative. (Discussed with patient on 01/22/2021 (2) Postoperative ileus: Onset Date: ~12/2020 Code(s): K91.89 - Other postprocedural complications and disorders of digestive system; K56.7 - Ileus, unspecified Status: Acute Assessment and Plan: advanced patient to full liquids consider stopping his PPN tomorrow to see if his appetite picks up. Additional Plan will try giving the patient a small dose of Reglan 15 minutes to an hour prior to each meal and at HS. ( I have asked the nurse to not give it near the promethazine wishes previously ordered for his constant nausea. The two of these can interact to cause some tardive dyskinesia). Subjective Subjective Date/Time Seen: 01/24/21 20:06 Post Op day: Postop day Patient reports: no new complaints and bowel movement Interval history: Patient states he still does not much appetite. However today he has had no vomiting. He states he has had several bowel movements. Review of Systems Review of Systems: All systems reviewed & are unremarkable except as noted in HPI and below Constitutional: Constitutional: Denies fever(s) and Reports weight loss Eyes: Eyes: Denies change in vision ENT: Denies hearing loss, Denies neck pain and Denies sore throat Cardiovascular: Cardiovascular: Reports no additional cardiovascular complaints, Denies chest pain, Denies leg edema and Denies dyspnea Respiratory: Respiratory: Reports no additional respiratory complaints, Denies cough, Denies dyspnea and Denies wheezing Gastrointestinal: Gastrointestinal: Reports as per HPI, Reports no additional gastrointestinal complaints, Reports belching, Reports loose stools and Denies nausea Comments: Patient and nurse confirming did have a bowel movement today. Genitourinary: Genitourinary: Reports no additional male genitourinary complaints, Denies hematuria and Denies dysuria Comments: Patient states he is voiding okay. Discussed with patient CT finding of a small possible renal cell carcinoma on his left kidney. He will need a pre- and post-contrast MR of the kidney at some point in the next couple months to check on this to confirm this suspicion of the radiologist. Musculoskeletal: Musculoskeletal: Denies arthralgias, Denies joint swelling and Denies neck pain Neurologic: Denies Abnormal speech present and Denies focal weakness Allergic/Immunologic: Allergic/Immunologic: Denies wheezing Exam Const: General: no acute distress, alert and awake; No acute distress Limitations: no limitations HENMT: Head: normocephalic and atraumatic Ears: hearing grossly normal bilaterally General nose exam: Normal external nose present and Normal nares present Mouth: Yes Normal oral and palatal mucosa present and Yes moist mucous membranes Eyes: General: appearance normal, both eyes and all related structures Conjunctivae: conjunctivae normal Sclera: sclerae normal Pupils: Equal, round and reactive pupils present EOM: EOMs intact bilaterally Neck: Neck: normal visual inspection, full ROM, no lymphadenopathy, supple and no JVD Lymphatic: no lymphadenopathy noted Chest: Chest palpation & inspection: normal inspection of the chest Resp: Effort & Inspection: normal respiratory effort and able to speak in complete sentences Auscultation: clear to auscultation bilaterally Percussion: percussion normal Cardio: Jugular venous distension: no JVD Rate: regular rate Rhythm: regular rhythm Heart sounds: S1 normal heart sound present and S2 normal heart sound present Peripheral
[2021-01-24] MEDS: LATANOPROST 0.005% OP SOLN 2.5 ML BTL 1 DROP EACH EYE (21:04)
[2021-01-24 22:00] VITALS: BP 146/68; PULSE 68; RESP 18; TEMP 36.6; O2SAT 100
[2021-01-25 00:12] LABS: Glucose Point of Care 106 mg/dl (65-105)
[2021-01-25 06:00] VITALS: BP 138/66; PULSE 69; RESP 20; TEMP 36.6; O2SAT 100
[2021-01-25] MEDS: METOCLOPRAMIDE HCL 5 MG TABLET PO ×4 (06:17→22:26)
[2021-01-25] MEDS: ACETAMINOPHEN 500 MG TABLET 1000 MG PO ×4 (06:17→22:27)
[2021-01-25] MEDS: SUCRALFATE 1 GM TABLET PO ×4 (06:17→22:26)
[2021-01-25 06:27] LABS: Hematocrit 26.6 % (42.0-52.0); Hemoglobin 8.7 g/dL (14.0-18.0); Mean Corpuscular HGB Conc 32.7 g/dl (32-36); Mean Corpuscular Hemoglobin 30.1 pg (26-34); Mean Platelet Volume 9.9 fl (7.4-10.4); Platelet Count Result 265 k/mm3 (150-375); Red Blood Count 2.89 M/mm3 (4.6-6.20); Red Cell Distribution Width 13.4 % (11.5-14.5); White Blood Count 8.1 K/mm3 (4.5-10.0)
[2021-01-25 06:29] LABS: Glucose Point of Care 122 mg/dl (65-105)
[2021-01-25 06:30] LABS: Anion Gap 7 mmol/L (8-16); Blood Urea Nitrogen 15 mg/dL (9-20); Calcium 8.5 mg/dL (8.4-10.2); Carbon Dioxide 22 mmol/L (22-30); Chloride 105 mmol/L (98-107); Estimated CRCL calculation 77 ml/min; Estimated Glomerular Filt Rate > 60; Glucose 101 mg/dL (65-110); Potassium 4.2 mmol/L (3.4-5.0); Sodium 134 mmol/L (137-145)
[2021-01-25 07:31] LABS: Folic Acid 7.5 ng/mL (2.76->20)
[2021-01-25 07:53] LABS: Iron 37 ug/dL (49-181)
[2021-01-25 08:02] LABS: Percent Iron Saturation 18 % (20-50)
[2021-01-25] MEDS: BRIMONIDINE TARTRATE 0.2% OP SOLN 5 ML BTL 1 DROP EACH EYE ×2 (08:36→22:25)
[2021-01-25] MEDS: amLODIPine BESYLATE 5 MG TABLET 10 MG PO (08:36)
[2021-01-25] MEDS: PANTOPRAZOLE 40 MG TABLET PO (08:37)
[2021-01-25] MEDS: LOSARTAN POTASSIUM 100 MG TABLET PO (08:37)
[2021-01-25] MEDS: PRAVASTATIN SODIUM 20 MG TABLET PO (08:37)
[2021-01-25] MEDS: polyethylene glycoL 3350 17 GM POWD.PACK PO (08:37)
[2021-01-25] MEDS: HEPARIN SODIUM 5,000 UNITS/ML VIAL 5000 UNITS SUB-Q ×2 (08:37→22:25)
[2021-01-25] MEDS: SIMETHICONE 80 MG TAB.CHEW PO ×4 (08:38→22:26)
[2021-01-25] MEDS: TIMOLOL MALEATE 0.5% OP SOLN 5 ML BOTTLE 1 DROP EACH EYE (08:38)
--- NOTE | 2021-01-25 10:41 | PCPTNOTE ---
Attempted to see patient for PT, however patient declined due to not feeling well. Patient stes he felt fine until he tried to eat. PT will continue to follow per plan of care.
--- NOTE | 2021-01-25 11:09 | PCNFU ---
Nutrition Follow-Up Complete: Altered GI function as related to Bowel Obstruction as evidenced by PPN/NGT. Goal: Meet estimated nutritional needs Patient is progressing towards goal. We will continue current goal. Pt current nutrition is Full liquids/PPN. Last recorded weight is 75 kg,up from 73.1 kg Bowel Motility:+BM reported 01/24 Labs Reviewed:Na 134,Hct 26.6,Hgb 8.7 Meds Noted:Reglan, Carafate,Cozaar,Protonix,Miralax, Clinimix E 4.25/5 with 250 ml Lipid Emulsion. Additional Notes: Patient seen today for nutrition follow up. He states to eating yogurt today for breakfast and drinking coffee and [place] juice. He also is drinking the Ensure Compact supplements when he can. He prefers vanilla, that information given to diet office as a preference. PPN is providing an additional 1153 kcals and 82 gms protein. Patient states they plan to discontinue PPN today. I encouraged PO intake. Ensure supplements are providing patient with an additional 220 kcals and 9 gms protein. Monitoring: Will monitor every Sunday and Sunday.
[2021-01-25 11:49] LABS: Glucose Point of Care 102 mg/dl (65-105)
--- NOTE | 2021-01-25 13:46 | P.PNIM_ITS ---
Progress Note: A&P Assessment and Plan (1) Postoperative ileus: Onset Date: ~12/2020 Code(s): K91.89 - Other postprocedural complications and disorders of digestive system; K56.7 - Ileus, unspecified Status: Acute Assessment and Plan: Abdominal x-ray with mildly distended central small-bowel; most likely ileus. * Resolved. He is passing flatus and having bowel movements * Appreciate general surgery consultation * continue with daily MiraLax * Carafate and Reglan with meals * Discontinue clinimix following completion of bag and continue with oral feedings. Will start gentle IV fluids at 70 ml/hr until determining how he is tolerating oral intake alone. Continue dietary supplements * Continue to encourage mobility. Out of bed for meals and frequent ambulation (2) Adenocarcinoma, colon: Onset Date: ~12/2020 Code(s): C18.9 - Malignant neoplasm of colon, unspecified Status: Acute Assessment and Plan: ascending colonic mass, probably adenocarcinoma causing low-grade obstruction noted on CT abdomen/ pelvis on 01/14/2021 * colonoscopy performed on 01/17/2021 which showed malignant-appearing colonic mass and ascending colon * he is s/p right hemicolectomy on 01/18/21 * Biopsy results: MODERATELY DIFFERENTIATED COLONIC ADENOCARCINOMA, 6.5 x 3.2 x 1.5 CM, IN ASCENDING COLON, INVADING THROUGH MUSCULARIS PROPRIA AND EXTENSIVELY INVOLVING PERICOLONIC FAT, NOT INVOLVING SEROSAL SURFACE OR RESECTION MARGINS. * Appreciate oncology consultation. Follow-up as an outpatient in 2-3 weeks * Cancer is T3 N0 MX stage to moderately differentiated adenocarcinoma of colon without perineural invasion and lymphovascular invasion (3) Left renal mass: Code(s): N28.89 - Other specified disorders of kidney and ureter Status: Acute Assessment and Plan: small left renal mass suspicious for renal cell cancer noted on CT abdomen/ pelvis on 01/14/2021 * Appreciate urology consultation * Will hold further evaluation of this renal mass at this time pending evaluation/resolution of the colonic issues. * Plan for CT abdomen pelvis with and without contrast with renal mass protocol 6-12 weeks following discharge per urology recommendations * Outpatient urology follow-up will be arranged (4) ELVIRA (acute kidney injury): Code(s): N17.9 - Acute kidney failure, unspecified Status: Acute Assessment and Plan: creatinine was 1.6 at presentation, felt to be related to dehydration given poor p.o. intake prior to presentation * resolved. Creatinine normalized with IV fluids and has remained stable at 0.7-0.8 (5) Anxiety: Code(s): F41.9 - Anxiety disorder, unspecified Status: Acute Assessment and Plan: mood is stable at this time * p.o. Ativan available as needed (6) Essential hypertension: Code(s): I10 - Essential (primary) hypertension Status: Acute Assessment and Plan: blood pressure reviewed and has been well controlled. * continue amlodipine and losartan (7) Normocytic anemia: Code(s): D64.9 - Anemia, unspecified Status: Acute Assessment and Plan: suspect related to colon cancer * H&H remained stable with no evidence of blood loss. Vital signs stable. * Iron panel consistent with LYSSA. Likely related to colon cancer. Begin IV iron Subjective Date/time seen: 01/25/21 13:46 Interval history: Date of service: 01/25/2021 Chino Mitchell is a
--- NOTE | 2021-01-25 13:46 | PM.IMPN ---
Progress Note: A&P Assessment and Plan (1) Postoperative ileus: Onset Date: ~12/2020 Code(s): K91.89 - Other postprocedural complications and disorders of digestive system; K56.7 - Ileus, unspecified Status: Acute Assessment and Plan: Abdominal x-ray with mildly distended central small-bowel; most likely ileus. Resolved. He is passing flatus and having bowel movements Appreciate general surgery consultation continue with daily MiraLax Carafate and Reglan with meals Discontinue clinimix following completion of bag and continue with oral feedings. Will start gentle IV fluids at 70 ml/hr until determining how he is tolerating oral intake alone. Continue dietary supplements Continue to encourage mobility. Out of bed for meals and frequent ambulation (2) Adenocarcinoma, colon: Onset Date: ~12/2020 Code(s): C18.9 - Malignant neoplasm of colon, unspecified Status: Acute Assessment and Plan: ascending colonic mass, probably adenocarcinoma causing low-grade obstruction noted on CT abdomen/ pelvis on 01/14/2021 colonoscopy performed on 01/17/2021 which showed malignant-appearing colonic mass and ascending colon he is s/p right hemicolectomy on 01/18/21 Biopsy results: MODERATELY DIFFERENTIATED COLONIC ADENOCARCINOMA, 6.5 x 3.2 x 1.5 CM, IN ASCENDING COLON, INVADING THROUGH MUSCULARIS PROPRIA AND EXTENSIVELY INVOLVING PERICOLONIC FAT, NOT INVOLVING SEROSAL SURFACE OR RESECTION MARGINS. Appreciate oncology consultation. Follow-up as an outpatient in 2-3 weeks Cancer is T3 N0 MX stage to moderately differentiated adenocarcinoma of colon without perineural invasion and lymphovascular invasion (3) Left renal mass: Code(s): N28.89 - Other specified disorders of kidney and ureter Status: Acute Assessment and Plan: small left renal mass suspicious for renal cell cancer noted on CT abdomen/ pelvis on 01/14/2021 Appreciate urology consultation Will hold further evaluation of this renal mass at this time pending evaluation/resolution of the colonic issues. Plan for CT abdomen pelvis with and without contrast with renal mass protocol 6-12 weeks following discharge per urology recommendations Outpatient urology follow-up will be arranged (4) ELVIRA (acute kidney injury): Code(s): N17.9 - Acute kidney failure, unspecified Status: Acute Assessment and Plan: creatinine was 1.6 at presentation, felt to be related to dehydration given poor p.o. intake prior to presentation resolved. Creatinine normalized with IV fluids and has remained stable at 0.7-0.8 (5) Anxiety: Code(s): F41.9 - Anxiety disorder, unspecified Status: Acute Assessment and Plan: mood is stable at this time p.o. Ativan available as needed (6) Essential hypertension: Code(s): I10 - Essential (primary) hypertension Status: Acute Assessment and Plan: blood pressure reviewed and has been well controlled. continue amlodipine and losartan (7) Normocytic anemia: Code(s): D64.9 - Anemia, unspecified Status: Acute Assessment and Plan: suspect related to colon cancer H&H remained stable with no evidence of blood loss. Vital signs stable. Iron panel consistent with LYSSA. Likely related to colon cancer. Begin IV iron Subjective Date/time seen: 01/25/21 13:46 Interval history: Date of service: 01/25/2021 Chino Mitchell is a legally blind 75-year-old male with history of hypertension and hyperlipidemia, who is seen in follow-up for colon mass with recent diagnosis of adenocarcinoma of the right colon and postoperative ileus. He feels pretty well today. He is still having difficulty with oral intake. He says when he takes his medications or tries to drink liquids my stomach just can't tolerate it. He feels sick to his stomach with some nausea but has not vomited. He is passing flatus
--- NOTE | 2021-01-25 13:47 | PM.PNGS ---
Progress Note: A&P Assessment and Plan (1) Adenocarcinoma, colon: Onset Date: ~12/2020 Code(s): C18.9 - Malignant neoplasm of colon, unspecified Status: Acute Assessment and Plan: Slowly starting to show more signs of bowel function, although has not had a BM yet today. Otherwise, he continues to improve. Continue oral Reglan and Miralax. Encouraged increasing activity and calling the nurses for help ambulating in the halls a few times today. Will continue full liquid diet. I encouraged him to try small more frequent meals to help with his intake. Will D/C Clinimix and lipids today and encourage increased nutrition. (2) Postoperative ileus: Onset Date: ~12/2020 Code(s): K91.89 - Other postprocedural complications and disorders of digestive system; K56.7 - Ileus, unspecified Status: Acute Additional Plan I have discussed the plan of care with Dr. Brown. Subjective Subjective Date/Time Seen: 01/25/21 12:47 Post Op day: 7 Patient reports: feels better and afebrile Interval history: Patient seen today while trying to eat his breakfast tray. He reports having difficulty with tolerating much oral intake on his trays because he becomes uncomfortable. He states it is difficult to describe and doesn't know that he feels bloated, but thinks it is more of a nausea feeling and he is worried he will vomit. He has only been taking in 20-25% of his last few meals because of this discomfort and lack of appetite. He reports having two good bowel movements yesterday, but none yet today. He reports passing little gas this morning. He states he has sat up in the bed a lot today but has not walked the halls. Denies any abdominal pain, just some discomfort with movement. No other complaints at this time. Review of Systems Review of Systems: All systems reviewed & are unremarkable except as noted in HPI and below Exam Const: General: comfortable, no acute distress, alert and awake Orientation/consciousness: patient oriented x3 Resp: Effort & Inspection: normal respiratory effort Auscultation: clear to auscultation bilaterally Cardio: Rate: regular rate Rhythm: regular rhythm GI: Inspection: incision (Abdominal incisions clean and dry, glue intact.) and other (mildly distended) GI Palp: Yes Soft to palpation, No Tenderness to palpation present (GI) and No Guarding due to palpation present (GI) Auscultation: normal bowel sounds Skin: General skin exam: normal color Neuro: General: moves all extremities and no focal motor deficits Speech: No Abnormal speech present Extrem: General: no clubbing, cyanosis or edema and no calf tenderness Psych: Mental Status: mental status grossly normal Insight: Good insight present (Psych) Judgement: Good judgement present (Psych) Objective Data Vital Signs Vital Signs: Vital Signs - 24 hr 01/24/21 14:00 01/24/21 22:00 01/25/21 06:00 Temperature 98.6 F 97.9 F 97.9 F Pulse Rate 68 68 69 Respiratory Rate 16 18 20 Blood Pressure 117/60 146/68 H 138/66 Pulse Oximetry 99 100 100 Intake/Output Intake/Output: Intake & Output 01/22/21 01/23/21 01/24/21 01/25/21 23:59 23:59 23:59 23:59 Intake Total 2650 2910 3520 640 Output Total 218 859 7193 1250 Balance 1800 2510 1970 -610 Meds/Results Medications: Active Medications Generic Name Dose Route Start Last Admin Trade Name Freq PRN Reason Stop Dose Admin Acetaminophen 1,000 mg 01/18/21 17:00 01/25/21 12:07 Acetaminophen 500 Mg Tablet PO 1,000 mg Q6H G[facility] Administration Hydrocodone Bitart/Acetaminophen 1 tab 01/24/21 12:14 Hydrocodone/Acetaminophen (*Crx) 5-325 Mg Tablet PO Q6H PRN Pain Rated 4-6 Amlodipine Besylate 10 mg 01/22/21 09:00 01/25/21 08:36 Amlodipine Besylate 5 Mg Tablet PO 10 mg DAILY G[facility]INI Administration Brimonidine Tartrate 1 drop 01/20/21 09:00 01/25/21 08:36 Brimonidine Tartrate 0.2% Op Soln 5 Ml Btl EACH EYE 1 drop Q12HR [facility]
[2021-01-25 14:00] VITALS: BP 117/66; PULSE 75; RESP 18; TEMP 37.2; O2SAT 98
[2021-01-25] MEDS: SODIUM CHLORIDE 0.9% IV 1,000 ML 70 ML IV CONT (14:32)
[2021-01-25] MEDS: IRON SUCROSE COMPLEX 200 MG in SODIUM CHLORIDE 0.9% IV 50 ML 120 MG IVPB (14:33)
[2021-01-25 20:00] VITALS: PULSE 74; RESP 18; O2SAT 100
[2021-01-25 22:00] VITALS: BP 160/79; PULSE 74; RESP 18; TEMP 36.4; O2SAT 100
[2021-01-25] MEDS: LATANOPROST 0.005% OP SOLN 2.5 ML BTL 1 DROP EACH EYE (22:26)
[2021-01-26] MEDS: SODIUM CHLORIDE 0.9% IV 1,000 ML 70 ML IV CONT (04:48)
[2021-01-26] MEDS: ACETAMINOPHEN 500 MG TABLET 1000 MG PO ×3 (05:11→17:12)
[2021-01-26 06:00] VITALS: BP 138/80; PULSE 71; RESP 18; TEMP 36.6; O2SAT 100
[2021-01-26 07:17] LABS: Anion Gap 8 mmol/L (8-16); Blood Urea Nitrogen 11 mg/dL (9-20); Calcium 8.5 mg/dL (8.4-10.2); Carbon Dioxide 19 mmol/L (22-30); Chloride 108 mmol/L (98-107); Estimated CRCL calculation 77 ml/min; Estimated Glomerular Filt Rate > 60; Glucose 74 mg/dL (65-110); Potassium 4.4 mmol/L (3.4-5.0); Sodium 135 mmol/L (137-145)
[2021-01-26] MEDS: METOCLOPRAMIDE HCL 5 MG TABLET PO ×4 (08:41→20:38)
[2021-01-26] MEDS: LOSARTAN POTASSIUM 100 MG TABLET PO (08:42)
[2021-01-26] MEDS: amLODIPine BESYLATE 5 MG TABLET 10 MG PO (08:42)
[2021-01-26] MEDS: polyethylene glycoL 3350 17 GM POWD.PACK PO (08:42)
[2021-01-26] MEDS: BRIMONIDINE TARTRATE 0.2% OP SOLN 5 ML BTL 1 DROP EACH EYE ×2 (08:42→20:39)
[2021-01-26] MEDS: HEPARIN SODIUM 5,000 UNITS/ML VIAL 5000 UNITS SUB-Q ×2 (08:42→20:38)
[2021-01-26] MEDS: SUCRALFATE 1 GM TABLET PO (08:42)
[2021-01-26] MEDS: PANTOPRAZOLE 40 MG TABLET PO (08:42)
[2021-01-26] MEDS: SIMETHICONE 80 MG TAB.CHEW PO ×4 (08:43→20:38)
[2021-01-26] MEDS: TIMOLOL MALEATE 0.5% OP SOLN 5 ML BOTTLE 1 DROP EACH EYE (08:43)
[2021-01-26] MEDS: PRAVASTATIN SODIUM 20 MG TABLET PO (08:43)
[2021-01-26 10:47] LABS: Hematocrit 26.9 % (42.0-52.0)
--- NOTE | 2021-01-26 11:28 | PCDIET ---
Calorie count has been initiated. Diet order remains full liquids with Ensure compact BID. Breakfast-bites of yogurt and cream of wheat. Sips of ensure compact and apple juice. Discussed calorie count with patient and nursing today. PPN has been discontinued at this time. PO intake has been encouraged. Will monitor daily.
--- NOTE | 2021-01-26 11:54 | P.PNIM_ITS ---
Progress Note: A&P Assessment and Plan (1) Postoperative ileus: Onset Date: ~12/2020 Code(s): K91.89 - Other postprocedural complications and disorders of digestive system; K56.7 - Ileus, unspecified Status: Acute Assessment and Plan: Abdominal x-ray with mildly distended central small-bowel; most likely ileus. * Resolved. He is passing flatus and has had 1-2 bowel movements. * Appreciate general surgery consultation * Continue with daily MiraLax * Reglan with meals * Clinimix discontinued on 01/25/21. Continue with full liquid diet. Encourage oral intake * Continue IV fluids given continued poor p.o. intake. Decrease rate as he is drinking some. * Continue dietary supplements * Continue to encourage mobility. Out of bed for meals and frequent ambulation (2) Adenocarcinoma, colon: Onset Date: ~12/2020 Code(s): C18.9 - Malignant neoplasm of colon, unspecified Status: Acute Assessment and Plan: Ascending colonic mass, probably adenocarcinoma causing low-grade obstruction noted on CT abdomen/ pelvis on 01/14/2021 * colonoscopy performed on 01/17/2021 which showed malignant-appearing colonic mass and ascending colon * he is s/p right hemicolectomy on 01/18/21 * Biopsy results: MODERATELY DIFFERENTIATED COLONIC ADENOCARCINOMA, 6.5 x 3.2 x 1.5 CM, IN ASCENDING COLON, INVADING THROUGH MUSCULARIS PROPRIA AND EXTENSIVELY INVOLVING PERICOLONIC FAT, NOT INVOLVING SEROSAL SURFACE OR RESECTION MARGINS. * Appreciate oncology consultation. Follow-up as an outpatient in 2-3 weeks * Cancer is T3 N0 MX stage II moderately differentiated adenocarcinoma of colon without perineural invasion and lymphovascular invasion (3) Left renal mass: Code(s): N28.89 - Other specified disorders of kidney and ureter Status: Acute Assessment and Plan: Small left renal mass suspicious for renal cell cancer noted on CT abdomen/ pelvis on 01/14/2021 * Appreciate urology consultation * Will hold further evaluation of this renal mass at this time pending evaluation/resolution of the colonic issues. * Plan for CT abdomen pelvis with and without contrast with renal mass protocol 6-12 weeks following discharge per urology recommendations * Outpatient urology follow-up will be arranged (4) ELVIRA (acute kidney injury): Code(s): N17.9 - Acute kidney failure, unspecified Status: Acute Assessment and Plan: Creatinine was 1.6 at presentation, felt to be related to dehydration given poor p.o. intake prior to presentation * Resolved. Creatinine normalized with IV fluids and has remained stable at 0.7-0.8 (5) Anxiety: Code(s): F41.9 - Anxiety disorder, unspecified Status: Acute Assessment and Plan: Mood is stable at this time * p.o. Ativan available as needed (6) Essential hypertension: Code(s): I10 - Essential (primary) hypertension Status: Acute Assessment and Plan: blood pressure reviewed and has been well controlled. Last BP 138/80 * continue amlodipine and losartan (7) Normocytic anemia: Code(s): D64.9 - Anemia, unspecified Status: Acute Assessment and Plan: suspect related to colon cancer * H&H remained stable with no evidence of blood loss. Vital signs stable. * Iron panel consistent with anemia of chronic disease. Likely related to colon cancer. * Received IV Venofer 01/25. Will switch to daily PO ferrous gluconate given low iron saturation Subjecti
--- NOTE | 2021-01-26 11:54 | PM.IMPN ---
Progress Note: A&P Assessment and Plan (1) Postoperative ileus: Onset Date: ~12/2020 Code(s): K91.89 - Other postprocedural complications and disorders of digestive system; K56.7 - Ileus, unspecified Status: Acute Assessment and Plan: Abdominal x-ray with mildly distended central small-bowel; most likely ileus. Resolved. He is passing flatus and has had 1-2 bowel movements. Appreciate general surgery consultation Continue with daily MiraLax Reglan with meals Clinimix discontinued on 01/25/21. Continue with full liquid diet. Encourage oral intake Continue IV fluids given continued poor p.o. intake. Decrease rate as he is drinking some. Continue dietary supplements Continue to encourage mobility. Out of bed for meals and frequent ambulation (2) Adenocarcinoma, colon: Onset Date: ~12/2020 Code(s): C18.9 - Malignant neoplasm of colon, unspecified Status: Acute Assessment and Plan: Ascending colonic mass, probably adenocarcinoma causing low-grade obstruction noted on CT abdomen/ pelvis on 01/14/2021 colonoscopy performed on 01/17/2021 which showed malignant-appearing colonic mass and ascending colon he is s/p right hemicolectomy on 01/18/21 Biopsy results: MODERATELY DIFFERENTIATED COLONIC ADENOCARCINOMA, 6.5 x 3.2 x 1.5 CM, IN ASCENDING COLON, INVADING THROUGH MUSCULARIS PROPRIA AND EXTENSIVELY INVOLVING PERICOLONIC FAT, NOT INVOLVING SEROSAL SURFACE OR RESECTION MARGINS. Appreciate oncology consultation. Follow-up as an outpatient in 2-3 weeks Cancer is T3 N0 MX stage II moderately differentiated adenocarcinoma of colon without perineural invasion and lymphovascular invasion (3) Left renal mass: Code(s): N28.89 - Other specified disorders of kidney and ureter Status: Acute Assessment and Plan: Small left renal mass suspicious for renal cell cancer noted on CT abdomen/ pelvis on 01/14/2021 Appreciate urology consultation Will hold further evaluation of this renal mass at this time pending evaluation/resolution of the colonic issues. Plan for CT abdomen pelvis with and without contrast with renal mass protocol 6-12 weeks following discharge per urology recommendations Outpatient urology follow-up will be arranged (4) ELVIRA (acute kidney injury): Code(s): N17.9 - Acute kidney failure, unspecified Status: Acute Assessment and Plan: Creatinine was 1.6 at presentation, felt to be related to dehydration given poor p.o. intake prior to presentation Resolved. Creatinine normalized with IV fluids and has remained stable at 0.7-0.8 (5) Anxiety: Code(s): F41.9 - Anxiety disorder, unspecified Status: Acute Assessment and Plan: Mood is stable at this time p.o. Ativan available as needed (6) Essential hypertension: Code(s): I10 - Essential (primary) hypertension Status: Acute Assessment and Plan: blood pressure reviewed and has been well controlled. Last BP 138/80 continue amlodipine and losartan (7) Normocytic anemia: Code(s): D64.9 - Anemia, unspecified Status: Acute Assessment and Plan: suspect related to colon cancer H&H remained stable with no evidence of blood loss. Vital signs stable. Iron panel consistent with anemia of chronic disease. Likely related to colon cancer. Received IV Venofer 01/25. Will switch to daily PO ferrous gluconate given low iron saturation Subjective Date/time seen: 01/26/21 11:54 Interval history: Date of service: 01/26/2021 Chino Mitchell is a legally blind 75-year-old male with history of hypertension and hyperlipidemia, who is seen in follow-up for colon mass with recent diagnosis of adenocarcinoma of the right colon and postoperative ileus. He is doing well today. He was able to walk but 200 ft with therapy down the berry and tolerated this well. He tried to have a bowel movement this mornin
--- NOTE | 2021-01-26 12:55 | PM.PNGS ---
Progress Note: A&P Assessment and Plan (1) Adenocarcinoma, colon: Onset Date: ~12/2020 Code(s): C18.9 - Malignant neoplasm of colon, unspecified Status: Acute Assessment and Plan: Slowly improving. Tolerating full liquids better today. No BM yesterday or today yet. Will advance to a soft/easy to chew regular diet. Since he has a poor appetite with minimal oral intake, will start a calorie count to help monitor his nutritional status. Continue oral Reglan and Miralax. Encouraged increasing activity and calling the nurses for help ambulating in the halls. Will give a dulcolax suppository. (2) Postoperative ileus: Onset Date: ~12/2020 Code(s): K91.89 - Other postprocedural complications and disorders of digestive system; K56.7 - Ileus, unspecified Status: Acute Additional Plan I have discussed the plan of care with Dr. Brown. Subjective Subjective Date/Time Seen: 01/26/21 12:55 Post Op day: 8 Patient reports: feels better, tolerating liquids well, voiding w/o difficulty, flatus, no bowel movement and afebrile Interval history: Patient seen today and states he is feeling better today than yesterday. No feelings of nausea or bloating. He does not feel like he is going to vomit after eating breakfast today. Has been up to walk with therapy this morning and bee up to the chair. Reports flatus this morning but no BM yesterday or today yet. No other complaints at this time. Review of Systems Review of Systems: All systems reviewed & are unremarkable except as noted in HPI and below Constitutional: Constitutional: Reports as per HPI, Reports no additional constitutional complaints, Denies chills and Denies fever(s) Cardiovascular: Cardiovascular: Reports no additional cardiovascular complaints, Denies chest pain, Denies leg edema and Denies dyspnea Respiratory: Respiratory: Reports no additional respiratory complaints, Denies cough and Denies dyspnea Gastrointestinal: Gastrointestinal: Reports as per HPI and Reports no additional gastrointestinal complaints Neurologic: Reports system reviewed and no additional complaints, except as documented, Denies Abnormal speech present and Denies focal weakness Exam Const: General: comfortable, no acute distress, alert and awake Orientation/consciousness: patient oriented x3 GI: Inspection: non-distended and incision (Abdominal incisions clean and dry, glue intact.) GI Palp: Yes Soft to palpation, No Tenderness to palpation present (GI) and No Guarding due to palpation present (GI) Auscultation: normal bowel sounds Skin: General skin exam: normal color Neuro: General: moves all extremities and no focal motor deficits Extrem: General: no clubbing, cyanosis or edema and no calf tenderness Psych: Mental Status: mental status grossly normal Insight: Good insight present (Psych) Judgement: Good judgement present (Psych) Objective Data Vital Signs Vital Signs: Vital Signs - 24 hr 01/25/21 14:00 01/25/21 20:00 01/25/21 22:00 Temperature 98.9 F 97.6 F Pulse Rate 75 74 74 Respiratory Rate 18 18 18 Blood Pressure 117/66 160/79 H Pulse Oximetry 98 100 100 01/26/21 06:00 Temperature 97.8 F Pulse Rate 71 Respiratory Rate 18 Blood Pressure 138/80 Pulse Oximetry 100 Intake/Output Intake/Output: Intake & Output 01/23/21 01/24/21 01/25/21 01/26/21 23:59 23:59 23:59 23:59 Intake Total 2910 3520 3200 1400 Output Total 400 1550 1940 1000 Balance 2510 1970 1260 400 Meds/Results Medications: Active Medications Generic Name Dose Route Start Last Admin Trade Name Freq PRN Reason Stop Dose Admin Acetaminophen 1,000 mg 01/18/21 17:00 01/26/21 12:18 Acetaminophen 500 Mg Tablet PO 1,000 mg Q6H GEMINI Administration Hydrocodone Bitart/Acetaminophen 1 tab 01/24/21 12:14 Hydrocodone/Acetaminophen (*Crx) 5-325 Mg Tablet PO Q6H PRN Pain Rated 4-6 Amlodipine Besylate 10 mg 01/22/21 09:00 01/26/21 08:42
[2021-01-26 14:00] VITALS: BP 130/63; PULSE 106; RESP 18; TEMP 36.3; O2SAT 100
[2021-01-26 15:20] LABS: Triglycerides 171 mg/dL (<150)
[2021-01-26] MEDS: SODIUM CHLORIDE 0.9% IV 1,000 ML 50 ML IV CONT ×2 (15:44→21:09)
[2021-01-26] MEDS: BISACODYL 10 MG SUPPOSITORY RECTAL (15:45)
[2021-01-26 20:00] VITALS: PULSE 73; RESP 16; O2SAT 100
[2021-01-26] MEDS: LATANOPROST 0.005% OP SOLN 2.5 ML BTL 1 DROP EACH EYE (20:38)
[2021-01-26 21:31] VITALS: BP 118/53; PULSE 73; RESP 16; TEMP 36.2; O2SAT 100
[2021-01-27 06:00] VITALS: BP 144/77; PULSE 72; RESP 16; TEMP 36.1; O2SAT 100
[2021-01-27] MEDS: METOCLOPRAMIDE HCL 5 MG TABLET PO ×3 (06:28→20:25)
[2021-01-27 06:50] LABS: Basophils Percent Auto 0.3 % (0.2-1.2); Eosinophils Absolute Auto 0.3 K/mm3 (0-0.3); Eosinophils Percent Auto 4.2 % (0-4.4); Hematocrit 26.9 % (42.0-52.0); Hemoglobin 8.8 g/dL (14.0-18.0); Immature Granulocyte Absolute 0.08 K/mm3 (0.00-0.031); Immature Granulocyte Percent A 1.2 % (0-0.5); Lymphocytes Absolute Auto 1.09 K/mm3 (0.9-3.2); Lymphocytes Percent Auto 15.8 % (18.3-44.2); Mean Corpuscular HGB Conc 32.7 g/dl (32-36); Mean Corpuscular Hemoglobin 30.1 pg (26-34); Mean Corpuscular Volume 92.1 fl (80-100); Mean Platelet Volume 9.4 fl (7.4-10.4); Monocytes Absolute Auto 0.7 K/mm3 (0.1-0.6); Monocytes Percent Auto 10.3 % (2.6-8.5); Neutrophils Absolute Auto 4.7 K/mm3 (1.3-6.7); Neutrophils Percent Auto 68.2 % (45.5-73.1); Platelet Count Result 347 k/mm3 (150-375); Red Blood Count 2.92 M/mm3 (4.6-6.20); Red Cell Distribution Width 13.8 % (11.5-14.5); White Blood Count 6.9 K/mm3 (4.5-10.0)
[2021-01-27 07:02] LABS: Anion Gap 6 mmol/L (8-16); Blood Urea Nitrogen 7 mg/dL (9-20); Calcium 8.6 mg/dL (8.4-10.2); Carbon Dioxide 19 mmol/L (22-30); Chloride 109 mmol/L (98-107); Estimated CRCL calculation 89 ml/min; Estimated Glomerular Filt Rate > 60; Glucose 78 mg/dL (65-110); Potassium 4.2 mmol/L (3.4-5.0); Sodium 134 mmol/L (137-145)
[2021-01-27] MEDS: TIMOLOL MALEATE 0.5% OP SOLN 5 ML BOTTLE 1 DROP EACH EYE (10:49)
[2021-01-27] MEDS: BRIMONIDINE TARTRATE 0.2% OP SOLN 5 ML BTL 1 DROP EACH EYE ×2 (10:49→20:24)
[2021-01-27] MEDS: amLODIPine BESYLATE 5 MG TABLET 10 MG PO (10:50)
[2021-01-27] MEDS: PANTOPRAZOLE 40 MG TABLET PO (10:51)
[2021-01-27] MEDS: FERROUS GLUCONATE 324 MG TABLET PO (10:51)
[2021-01-27] MEDS: HEPARIN SODIUM 5,000 UNITS/ML VIAL 5000 UNITS SUB-Q ×2 (10:51→20:25)
[2021-01-27] MEDS: PRAVASTATIN SODIUM 20 MG TABLET PO (10:51)
[2021-01-27] MEDS: SIMETHICONE 80 MG TAB.CHEW PO ×4 (10:51→20:25)
[2021-01-27] MEDS: polyethylene glycoL 3350 17 GM POWD.PACK PO (10:52)
[2021-01-27] MEDS: LOSARTAN POTASSIUM 100 MG TABLET PO (10:52)
--- NOTE | 2021-01-27 12:10 | PCDIET ---
Calorie count Lunch meal 01/26: 60 kcals from [employer] juice Dinner meal 01/26: 71 calories from lemon venetie ira soda, roast turkey and bread dressing. Breakfast 01/27: drank 100% of OJ-60 kcals, 25% of omelette-40 kcals and 50% ensure compact-110 kcals. I spoke with patient today, he did state he felt he ate better for breakfast today, as his intake does show improvement. Discussed with patient we need to increased PO intake. Calories are not sufficient at this time. RD will continue to monitor daily.
[2021-01-27 13:47] VITALS: BP 109/61; PULSE 65; RESP 18; TEMP 36.7; O2SAT 100
[2021-01-27] MEDS: SODIUM CHLORIDE 0.9% IV 1,000 ML 50 ML IV CONT (14:57)
--- NOTE | 2021-01-27 15:34 | PM.PNGS ---
Progress Note: A&P Assessment and Plan (1) Adenocarcinoma, colon: Onset Date: ~12/2020 Code(s): C18.9 - Malignant neoplasm of colon, unspecified Status: Acute Assessment and Plan: Continues to show signs of slow improvement, but still not taking in a sufficient amount of oral intake. Still requiring IV fluids due to low oral intake. I discussed this at length with the patient and the importance of nutrition and healing. He is still having the sensation of being full before eating. Will give another dulcolax supp today. Continue Reglan and Miralax. Encouraged to continue to increase activity, walk the halls. Hopefully, if his oral intake improves over the next few days, then he would be a candidate for discharge from a surgical standpoint. (2) Postoperative ileus: Onset Date: ~12/2020 Code(s): K91.89 - Other postprocedural complications and disorders of digestive system; K56.7 - Ileus, unspecified Status: Acute Assessment and Plan: Prolonged ileus post-operatively. Seems to be resolving but patient still with poor appetite. Additional Plan I have discussed the plan of care with Dr. Brown. Subjective Subjective Date/Time Seen: 01/27/21 15:34 Post Op day: 9 Patient reports: tolerating a regular diet (easy to chew diet, no dentures), voiding w/o difficulty, flatus, bowel movement (one time yesterday after suppository) and afebrile Interval history: Patient seen again today while lying in bed. He reports feeling fair today. He is still feeling full before even starting a meal, which is keeping him from eating much. he has a poor appetite. He denies nausea, vomiting, or bloating. No other complaints at this time. He did eat more today than yesterday with slow improvement. From lunch yesterday through breakfast this morning, his calorie count showed 341 calories total. We discussed this. Review of Systems Review of Systems: All systems reviewed & are unremarkable except as noted in HPI and below Exam Const: General: comfortable, no acute distress, alert and awake Orientation/consciousness: patient oriented x3 GI: Inspection: non-distended and incision (Abdominal incisions clean and dry, glue intact.) GI Palp: Yes Soft to palpation, No Tenderness to palpation present (GI), No Guarding due to palpation present (GI), No Hernia present and No Rebound tenderness present Auscultation: normal bowel sounds Skin: General skin exam: normal color Neuro: General: moves all extremities and no focal motor deficits Speech: No Abnormal speech present Extrem: General: no clubbing, cyanosis or edema and no calf tenderness Psych: Mental Status: mental status grossly normal Insight: Good insight present (Psych) Judgement: Good judgement present (Psych) Objective Data Vital Signs Vital Signs: Vital Signs - 24 hr 01/26/21 20:00 01/26/21 21:31 01/27/21 06:00 Temperature 97.2 F L 96.9 F L Pulse Rate 73 73 72 Respiratory Rate 16 16 16 Blood Pressure 118/53 L 144/77 H Pulse Oximetry 100 100 100 01/27/21 13:47 Temperature 98.0 F Pulse Rate 65 Respiratory Rate 18 Blood Pressure 109/61 Pulse Oximetry 100 Intake/Output Intake/Output: Intake & Output 01/24/21 01/25/21 01/26/21 01/27/21 23:59 23:59 23:59 23:59 Intake Total 3520 3200 4010 1550 Output Total 1550 1940 2100 500 Balance 1970 1260 1910 1050 Meds/Results Medications: Active Medications Generic Name Dose Route Start Last Admin Trade Name Freq PRN Reason Stop Dose Admin Acetaminophen 1,000 mg 01/18/21 17:00 01/27/21 10:49 Acetaminophen 500 Mg Tablet PO Not Given Q6H [facility] Hydrocodone Bitart/Acetaminophen 1 tab 01/24/21 12:14 Hydrocodone/Acetaminophen (*Crx) 5-325 Mg Tablet PO Q6H PRN Pain Rated 4-6 Amlodipine Besylate 10 mg 01/22/21 09:00 01/27/21 10:50 Amlodipine Besylate 5 Mg Tablet PO 10 mg DAILY [facility] Administration Bisacodyl 10 mg 01/27/21 15:29 Bisacodyl
--- NOTE | 2021-01-27 15:56 | P.PNIM_ITS ---
Progress Note: A&P Assessment and Plan (1) Postoperative ileus: Onset Date: ~12/2020 Code(s): K91.89 - Other postprocedural complications and disorders of digestive system; K56.7 - Ileus, unspecified Status: Acute Assessment and Plan: Abdominal x-ray with mildly distended central small-bowel; most likely ileus. * Resolved. He is passing flatus and has had several bowel movements. * Appreciate general surgery consultation * Continue with daily MiraLax * Reglan with meals * Still with poor oral intake. Clinimix discontinued on 01/25/21. Continue with full liquid diet and dietary supplements. Encourage oral intake * Continue with calorie counts * Continue IV fluids given continued poor p.o. intake at decreased rate * Continue to encourage mobility. Out of bed for meals and frequent ambulation (2) Adenocarcinoma, colon: Onset Date: ~12/2020 Code(s): C18.9 - Malignant neoplasm of colon, unspecified Status: Acute Assessment and Plan: Ascending colonic mass, probably adenocarcinoma causing low-grade obstruction noted on CT abdomen/ pelvis on 01/14/2021 * colonoscopy performed on 01/17/2021 which showed malignant-appearing colonic mass and ascending colon * he is s/p right hemicolectomy on 01/18/21 * Biopsy results: MODERATELY DIFFERENTIATED COLONIC ADENOCARCINOMA, 6.5 x 3.2 x 1.5 CM, IN ASCENDING COLON, INVADING THROUGH MUSCULARIS PROPRIA AND EXTENSIVELY INVOLVING PERICOLONIC FAT, NOT INVOLVING SEROSAL SURFACE OR RESECTION MARGINS. * Appreciate oncology consultation. Follow-up as an outpatient in 2-3 weeks * Cancer is T3 N0 MX stage II moderately differentiated adenocarcinoma of colon without perineural invasion and lymphovascular invasion (3) Left renal mass: Code(s): N28.89 - Other specified disorders of kidney and ureter Status: Acute Assessment and Plan: Small left renal mass suspicious for renal cell cancer noted on CT abdomen/pelvis on 01/14/2021 * Appreciate urology consultation * Will hold further evaluation of this renal mass at this time pending evaluation/resolution of the colonic issues. * Plan for CT abdomen pelvis with and without contrast with renal mass protocol 6-12 weeks following discharge per urology recommendations * Outpatient urology follow-up will be arranged (4) ELVIRA (acute kidney injury): Code(s): N17.9 - Acute kidney failure, unspecified Status: Acute Assessment and Plan: Creatinine was 1.6 at presentation, felt to be related to dehydration given poor p.o. intake prior to presentation * Resolved. Creatinine normalized with IV fluids and has remained stable at 0.6-0.8 (5) Anxiety: Code(s): F41.9 - Anxiety disorder, unspecified Status: Acute Assessment and Plan: Mood is stable at this time * p.o. Ativan available as needed (6) Essential hypertension: Code(s): I10 - Essential (primary) hypertension Status: Acute Assessment and Plan: Blood pressure reviewed and has been well controlled. Last BP 109/61 * continue amlodipine and losartan (7) Normocytic anemia: Code(s): D64.9 - Anemia, unspecified Status: Acute Assessment and Plan: suspect related to colon cancer * H&H remained stable with no evidence of blood loss. Vital signs stable. * Iron panel consistent with anemia of chronic disease. Likely related to colon cancer. * Received IV Venofer 01/25. Continue PO ferrous gluconate given low iron saturation
--- NOTE | 2021-01-27 15:56 | PM.IMPN ---
Progress Note: A&P Assessment and Plan (1) Postoperative ileus: Onset Date: ~12/2020 Code(s): K91.89 - Other postprocedural complications and disorders of digestive system; K56.7 - Ileus, unspecified Status: Acute Assessment and Plan: Abdominal x-ray with mildly distended central small-bowel; most likely ileus. Resolved. He is passing flatus and has had several bowel movements. Appreciate general surgery consultation Continue with daily MiraLax Reglan with meals Still with poor oral intake. Clinimix discontinued on 01/25/21. Continue with full liquid diet and dietary supplements. Encourage oral intake Continue with calorie counts Continue IV fluids given continued poor p.o. intake at decreased rate Continue to encourage mobility. Out of bed for meals and frequent ambulation (2) Adenocarcinoma, colon: Onset Date: ~12/2020 Code(s): C18.9 - Malignant neoplasm of colon, unspecified Status: Acute Assessment and Plan: Ascending colonic mass, probably adenocarcinoma causing low-grade obstruction noted on CT abdomen/ pelvis on 01/14/2021 colonoscopy performed on 01/17/2021 which showed malignant-appearing colonic mass and ascending colon he is s/p right hemicolectomy on 01/18/21 Biopsy results: MODERATELY DIFFERENTIATED COLONIC ADENOCARCINOMA, 6.5 x 3.2 x 1.5 CM, IN ASCENDING COLON, INVADING THROUGH MUSCULARIS PROPRIA AND EXTENSIVELY INVOLVING PERICOLONIC FAT, NOT INVOLVING SEROSAL SURFACE OR RESECTION MARGINS. Appreciate oncology consultation. Follow-up as an outpatient in 2-3 weeks Cancer is T3 N0 MX stage II moderately differentiated adenocarcinoma of colon without perineural invasion and lymphovascular invasion (3) Left renal mass: Code(s): N28.89 - Other specified disorders of kidney and ureter Status: Acute Assessment and Plan: Small left renal mass suspicious for renal cell cancer noted on CT abdomen/pelvis on 01/14/2021 Appreciate urology consultation Will hold further evaluation of this renal mass at this time pending evaluation/resolution of the colonic issues. Plan for CT abdomen pelvis with and without contrast with renal mass protocol 6-12 weeks following discharge per urology recommendations Outpatient urology follow-up will be arranged (4) ELVIRA (acute kidney injury): Code(s): N17.9 - Acute kidney failure, unspecified Status: Acute Assessment and Plan: Creatinine was 1.6 at presentation, felt to be related to dehydration given poor p.o. intake prior to presentation Resolved. Creatinine normalized with IV fluids and has remained stable at 0.6-0.8 (5) Anxiety: Code(s): F41.9 - Anxiety disorder, unspecified Status: Acute Assessment and Plan: Mood is stable at this time p.o. Ativan available as needed (6) Essential hypertension: Code(s): I10 - Essential (primary) hypertension Status: Acute Assessment and Plan: Blood pressure reviewed and has been well controlled. Last BP 109/61 continue amlodipine and losartan (7) Normocytic anemia: Code(s): D64.9 - Anemia, unspecified Status: Acute Assessment and Plan: suspect related to colon cancer H&H remained stable with no evidence of blood loss. Vital signs stable. Iron panel consistent with anemia of chronic disease. Likely related to colon cancer. Received IV Venofer 01/25. Continue PO ferrous gluconate given low iron saturation Subjective Date/time seen: 01/27/21 15:56 Interval history: Date of service: 01/27/2021 Chino Mitchell is a legally blind 75-year-old male with history of hypertension and hyperlipidemia, who is seen in follow-up for colon mass with recent diagnosis of adenocarcinoma of the right colon and postoperative ileus. he is feeling tired today. He stated that he had a busy morning. He got up and walked quite a bit with therapy. He got cleaned up
[2021-01-27] MEDS: BISACODYL 10 MG SUPPOSITORY RECTAL (17:01)
[2021-01-27 20:00] VITALS: PULSE 72; RESP 16; O2SAT 97
[2021-01-27] MEDS: LATANOPROST 0.005% OP SOLN 2.5 ML BTL 1 DROP EACH EYE (20:24)
[2021-01-27 22:00] VITALS: BP 144/87; PULSE 72; RESP 16; TEMP 36.3; O2SAT 97
[2021-01-28] MEDS: ZOLPIDEM TARTRATE (*CRX) 5 MG TABLET 10 MG PO (00:01)
[2021-01-28 06:00] VITALS: BP 127/65; PULSE 77; RESP 16; TEMP 36.7; O2SAT 100
[2021-01-28] MEDS: FERROUS GLUCONATE 324 MG TABLET PO (08:36)
[2021-01-28] MEDS: METOCLOPRAMIDE HCL 5 MG TABLET PO ×4 (08:36→20:19)
[2021-01-28] MEDS: polyethylene glycoL 3350 17 GM POWD.PACK PO (08:37)
[2021-01-28] MEDS: HEPARIN SODIUM 5,000 UNITS/ML VIAL 5000 UNITS SUB-Q ×2 (08:37→20:19)
[2021-01-28] MEDS: amLODIPine BESYLATE 5 MG TABLET 10 MG PO (08:37)
[2021-01-28] MEDS: PRAVASTATIN SODIUM 20 MG TABLET PO (08:37)
[2021-01-28] MEDS: PANTOPRAZOLE 40 MG TABLET PO (08:37)
[2021-01-28] MEDS: LOSARTAN POTASSIUM 100 MG TABLET PO (08:37)
[2021-01-28] MEDS: SIMETHICONE 80 MG TAB.CHEW PO ×4 (08:37→20:19)
[2021-01-28] MEDS: BRIMONIDINE TARTRATE 0.2% OP SOLN 5 ML BTL 1 DROP EACH EYE ×2 (08:38→20:19)
[2021-01-28] MEDS: TIMOLOL MALEATE 0.5% OP SOLN 5 ML BOTTLE 1 DROP EACH EYE (08:38)
[2021-01-28 10:50] LABS: Hematocrit 28.4 % (42.0-52.0); Hemoglobin 9.5 g/dL (14.0-18.0)
[2021-01-28 11:00] LABS: Anion Gap 7 mmol/L (8-16); Blood Urea Nitrogen 7 mg/dL (9-20); Calcium 8.5 mg/dL (8.4-10.2); Carbon Dioxide 19 mmol/L (22-30); Chloride 106 mmol/L (98-107); Estimated CRCL calculation 77 ml/min; Estimated Glomerular Filt Rate > 60; Glucose 126 mg/dL (65-110); Potassium 4.1 mmol/L (3.4-5.0); Sodium 132 mmol/L (137-145)
[2021-01-28] MEDS: SODIUM CHLORIDE 0.9% IV 1,000 ML 50 ML IV CONT (11:43)
[2021-01-28 14:00] VITALS: BP 126/66; PULSE 77; RESP 20; TEMP 36.6; O2SAT 100
--- NOTE | 2021-01-28 15:14 | PCDIET ---
Nutrition Follow-Up Complete: Altered GI function as related to Bowel Obstruction as evidenced by PPN/NGT. Meet estimated nutritional needs Goal:Progressing towards goal. Pt current nutrition is Regular, easy to chew Nutrition recommendation: Changed to minced and moist per pt preference as he is finding it hard to eat without dentures Last recorded weight is 75.2 kg, steady Bowel Motility:01/26 Labs Reviewed:Glucose 126, Na 132, BUN 7 Meds Noted:Iron, Miralax, Reglan, Tamms Additional Notes: Pt is on a kcal count. Appetite improving. Ate 75% of breakfast this am. Encouraged continued stimulation of appetite. 01/27 Ensure + Ice Cream 50% 240kcals 20% lemon salamatof soda 20kcals, 10% of meatloaf and mashed potatoes 50 kcals 01/28: 50% scrambled eggs 60kcals 100% OJ 60kcals, 100% ensure 240kcals, 50% hungarian toast 110 kcals Will monitor every Sunday and Sunday.
--- NOTE | 2021-01-28 15:56 | P.PNIM_ITS ---
Progress Note: A&P Assessment and Plan (1) Postoperative ileus: Onset Date: ~12/2020 Code(s): K91.89 - Other postprocedural complications and disorders of digestive system; K56.7 - Ileus, unspecified Status: Acute Assessment and Plan: Abdominal x-ray with mildly distended central small-bowel; most likely ileus. * Resolved. He is passing flatus and has had several bowel movements. * Appreciate general surgery consultation * Continue with daily MiraLax * Reglan with meals * he has had poor oral intake. Was supplemented with Clinimix which was discontinued on 01/25. diet has been advanced to regular, bite size diet with supplements. He is improving his oral intake today. * Continue with calorie counts * Will stop his IV fluids as he is increasing his p.o. intake * Continue to encourage mobility. Out of bed for meals and frequent ambulation * hopeful discharge soon once tolerating diet well. Appreciate surgery recommendations regarding timing of discharge (2) Adenocarcinoma, colon: Onset Date: ~12/2020 Code(s): C18.9 - Malignant neoplasm of colon, unspecified Status: Acute Assessment and Plan: Ascending colonic mass, probably adenocarcinoma causing low-grade obstruction noted on CT abdomen/ pelvis on 01/14/2021 * colonoscopy performed on 01/17/2021 which showed malignant-appearing colonic mass and ascending colon * he is s/p right hemicolectomy on 01/18/21 * Biopsy results: MODERATELY DIFFERENTIATED COLONIC ADENOCARCINOMA, 6.5 x 3.2 x 1.5 CM, IN ASCENDING COLON, INVADING THROUGH MUSCULARIS PROPRIA AND EXTENSIVELY INVOLVING PERICOLONIC FAT, NOT INVOLVING SEROSAL SURFACE OR RESECTION MARGINS. * Appreciate oncology consultation. Follow-up as an outpatient in 2-3 weeks * Cancer is T3 N0 MX stage II moderately differentiated adenocarcinoma of colon without perineural invasion and lymphovascular invasion (3) Left renal mass: Code(s): N28.89 - Other specified disorders of kidney and ureter Status: Acute Assessment and Plan: Small left renal mass suspicious for renal cell cancer noted on CT abdomen/pelvis on 01/14/2021 * Appreciate urology consultation * Will hold further evaluation of this renal mass at this time pending evaluation/resolution of the colonic issues. * Plan for CT abdomen pelvis with and without contrast with renal mass protocol 6-12 weeks following discharge per urology recommendations * Outpatient urology follow-up will be arranged (4) ELVIRA (acute kidney injury): Code(s): N17.9 - Acute kidney failure, unspecified Status: Acute Assessment and Plan: Creatinine was 1.6 at presentation, felt to be related to dehydration given poor p.o. intake prior to presentation * Resolved. Creatinine normalized with IV fluids and has remained stable at 0.6-0.8 (5) Anxiety: Code(s): F41.9 - Anxiety disorder, unspecified Status: Acute Assessment and Plan: Mood is stable at this time * p.o. Ativan available as needed (6) Essential hypertension: Code(s): I10 - Essential (primary) hypertension Status: Acute Assessment and Plan: Blood pressure reviewed and has been well controlled. Last BP 126/66 * continue amlodipine and losartan (7) Normocytic anemia: Code(s): D64.9 - Anemia, unspecified Status: Acute Assessment and Plan: suspect related to colon cancer * H&H remained stable with no evidence of blood loss. Vital signs stable. * Iron panel con
--- NOTE | 2021-01-28 15:56 | PM.IMPN ---
Progress Note: A&P Assessment and Plan (1) Postoperative ileus: Onset Date: ~12/2020 Code(s): K91.89 - Other postprocedural complications and disorders of digestive system; K56.7 - Ileus, unspecified Status: Acute Assessment and Plan: Abdominal x-ray with mildly distended central small-bowel; most likely ileus. Resolved. He is passing flatus and has had several bowel movements. Appreciate general surgery consultation Continue with daily MiraLax Reglan with meals he has had poor oral intake. Was supplemented with Clinimix which was discontinued on 01/25. diet has been advanced to regular, bite size diet with supplements. He is improving his oral intake today. Continue with calorie counts Will stop his IV fluids as he is increasing his p.o. intake Continue to encourage mobility. Out of bed for meals and frequent ambulation hopeful discharge soon once tolerating diet well. Appreciate surgery recommendations regarding timing of discharge (2) Adenocarcinoma, colon: Onset Date: ~12/2020 Code(s): C18.9 - Malignant neoplasm of colon, unspecified Status: Acute Assessment and Plan: Ascending colonic mass, probably adenocarcinoma causing low-grade obstruction noted on CT abdomen/ pelvis on 01/14/2021 colonoscopy performed on 01/17/2021 which showed malignant-appearing colonic mass and ascending colon he is s/p right hemicolectomy on 01/18/21 Biopsy results: MODERATELY DIFFERENTIATED COLONIC ADENOCARCINOMA, 6.5 x 3.2 x 1.5 CM, IN ASCENDING COLON, INVADING THROUGH MUSCULARIS PROPRIA AND EXTENSIVELY INVOLVING PERICOLONIC FAT, NOT INVOLVING SEROSAL SURFACE OR RESECTION MARGINS. Appreciate oncology consultation. Follow-up as an outpatient in 2-3 weeks Cancer is T3 N0 MX stage II moderately differentiated adenocarcinoma of colon without perineural invasion and lymphovascular invasion (3) Left renal mass: Code(s): N28.89 - Other specified disorders of kidney and ureter Status: Acute Assessment and Plan: Small left renal mass suspicious for renal cell cancer noted on CT abdomen/pelvis on 01/14/2021 Appreciate urology consultation Will hold further evaluation of this renal mass at this time pending evaluation/resolution of the colonic issues. Plan for CT abdomen pelvis with and without contrast with renal mass protocol 6-12 weeks following discharge per urology recommendations Outpatient urology follow-up will be arranged (4) ELVIRA (acute kidney injury): Code(s): N17.9 - Acute kidney failure, unspecified Status: Acute Assessment and Plan: Creatinine was 1.6 at presentation, felt to be related to dehydration given poor p.o. intake prior to presentation Resolved. Creatinine normalized with IV fluids and has remained stable at 0.6-0.8 (5) Anxiety: Code(s): F41.9 - Anxiety disorder, unspecified Status: Acute Assessment and Plan: Mood is stable at this time p.o. Ativan available as needed (6) Essential hypertension: Code(s): I10 - Essential (primary) hypertension Status: Acute Assessment and Plan: Blood pressure reviewed and has been well controlled. Last BP 126/66 continue amlodipine and losartan (7) Normocytic anemia: Code(s): D64.9 - Anemia, unspecified Status: Acute Assessment and Plan: suspect related to colon cancer H&H remained stable with no evidence of blood loss. Vital signs stable. Iron panel consistent with anemia of chronic disease. Likely related to colon cancer. Received IV Venofer 01/25. Continue PO ferrous gluconate given low iron saturation Subjective Date/time seen: 01/28/21 15:56 Interval history: Date of service: 01/28/2021 Chino Mitchell is a legally blind 75-year-old male with history of hypertension and hyperlipidemia, who is seen in follow-up for colon mass with recent diagnosis of adenocarcinoma of the r
--- NOTE | 2021-01-28 17:19 | PM.PNGS ---
Progress Note: A&P Assessment and Plan (1) Adenocarcinoma, colon: Onset Date: ~12/2020 Code(s): C18.9 - Malignant neoplasm of colon, unspecified Status: Acute Assessment and Plan: Continues to show signs of slow improvement, And may be today just beginning to take a sufficient amount of oral intake. IV fluids were stopped earlier today by the hospitalist and I agree with this. I discussed this at length with the patient and the importance of nutrition and healing. He is still having the sensation of being full before eating But this is gradually improving with the use of the Reglan before meals and the occasional suppositories if he does not have a spontaneous bowel movement. Continue Reglan and Miralax. Encouraged to continue to increase activity, walk the halls. Hopefully, if his oral intake improves over the next few days, then he would be a candidate for discharge from a surgical standpoint. (01/28 ---- I believe with his improvement today he could probably be discharged tomorrow with help case management has arranged at home using home health and [employer].). (2) Postoperative ileus: Onset Date: ~12/2020 Code(s): K91.89 - Other postprocedural complications and disorders of digestive system; K56.7 - Ileus, unspecified Status: Acute Assessment and Plan: Prolonged ileus post-operatively. Seems to be resolving. Subjective Subjective Date/Time Seen: 01/28/21 17:19 Post Op day: POD # 11 Patient reports: no new complaints, tolerating a regular diet (Just today on soft and having some difficulty because of poor dentition) and bowel movement Interval history: patient up in the bathroom when I entered the room. He walked spontaneously on his own from the bathroom to the bed and expressed no significant abdominal pain. Review of Systems Review of Systems: All systems reviewed & are unremarkable except as noted in HPI and below Constitutional: Constitutional: Reports as per HPI, Reports no additional constitutional complaints, Denies chills, Denies fever(s) and Reports weight loss Eyes: Eyes: Denies change in vision ENT: Denies hearing loss, Denies neck pain and Denies sore throat Cardiovascular: Cardiovascular: Reports no additional cardiovascular complaints, Denies chest pain, Denies leg edema and Denies dyspnea Respiratory: Respiratory: Reports no additional respiratory complaints, Denies cough, Denies dyspnea and Denies wheezing Gastrointestinal: Gastrointestinal: Reports as per HPI, Reports no additional gastrointestinal complaints, Reports belching, Reports loose stools and Denies nausea Genitourinary: Genitourinary: Reports no additional male genitourinary complaints, Denies hematuria and Denies dysuria Musculoskeletal: Musculoskeletal: Denies arthralgias, Denies joint swelling and Denies neck pain Neurologic: Reports system reviewed and no additional complaints, except as documented, Denies Abnormal speech present and Denies focal weakness Allergic/Immunologic: Allergic/Immunologic: Denies wheezing Exam Const: General: comfortable, no acute distress, alert and awake; No acute distress Limitations: no limitations HENMT: Head: normocephalic and atraumatic Ears: hearing grossly normal bilaterally General nose exam: Normal external nose present and Normal nares present Mouth: Yes Normal oral and palatal mucosa present and Yes moist mucous membranes Eyes: General: appearance normal, both eyes and all related structures Conjunctivae: conjunctivae normal Sclera: sclerae normal Pupils: Equal, round and reactive pupils present EOM: EOMs intact bilaterally Neck: Neck: normal visual inspection, full ROM, no lymphadenopathy, supple and no JVD Lymphatic: no lymphadenopathy noted Chest: Chest palpation & inspection: normal inspection of the chest Resp: Effort & Inspection: normal respiratory effort and able to speak in complete sentences Auscultation: clear to au
[2021-01-28] MEDS: LATANOPROST 0.005% OP SOLN 2.5 ML BTL 1 DROP EACH EYE (20:19)
[2021-01-28 22:00] VITALS: BP 121/71; PULSE 80; RESP 18; TEMP 36.3; O2SAT 100
[2021-01-29] MEDS: ZOLPIDEM TARTRATE (*CRX) 5 MG TABLET 10 MG PO (00:09)
[2021-01-29 06:00] VITALS: BP 131/68; PULSE 70; RESP 18; TEMP 36.5; O2SAT 100
[2021-01-29] MEDS: METOCLOPRAMIDE HCL 5 MG TABLET PO ×3 (06:23→17:38)
[2021-01-29 06:36] LABS: Hematocrit 25.8 % (42.0-52.0); Hemoglobin 8.6 g/dL (14.0-18.0)
[2021-01-29 06:47] LABS: Anion Gap 4 mmol/L (8-16); Blood Urea Nitrogen 6 mg/dL (9-20); Calcium 8.3 mg/dL (8.4-10.2); Carbon Dioxide 23 mmol/L (22-30); Chloride 108 mmol/L (98-107); Estimated CRCL calculation 77 ml/min; Estimated Glomerular Filt Rate > 60; Glucose 85 mg/dL (65-110); Potassium 4.1 mmol/L (3.4-5.0); Sodium 135 mmol/L (137-145)
[2021-01-29] MEDS: PANTOPRAZOLE 40 MG TABLET PO (08:24)
[2021-01-29] MEDS: SIMETHICONE 80 MG TAB.CHEW PO ×3 (08:24→17:38)
[2021-01-29] MEDS: TIMOLOL MALEATE 0.5% OP SOLN 5 ML BOTTLE 1 DROP EACH EYE (08:24)
[2021-01-29] MEDS: amLODIPine BESYLATE 5 MG TABLET 10 MG PO (08:24)
[2021-01-29] MEDS: polyethylene glycoL 3350 17 GM POWD.PACK PO (08:24)
[2021-01-29] MEDS: BRIMONIDINE TARTRATE 0.2% OP SOLN 5 ML BTL 1 DROP EACH EYE (08:24)
[2021-01-29] MEDS: PRAVASTATIN SODIUM 20 MG TABLET PO (08:24)
[2021-01-29] MEDS: HEPARIN SODIUM 5,000 UNITS/ML VIAL 5000 UNITS SUB-Q (08:24)
[2021-01-29] MEDS: FERROUS GLUCONATE 324 MG TABLET PO (08:25)
[2021-01-29] MEDS: LOSARTAN POTASSIUM 100 MG TABLET PO (08:25)
--- NOTE | 2021-01-29 12:03 | PM.PNGS ---
Progress Note: A&P Assessment and Plan (1) Adenocarcinoma, colon: Onset Date: ~12/2020 Code(s): C18.9 - Malignant neoplasm of colon, unspecified Status: Acute Assessment and Plan: doing well after surgery. Tolerating solid food and can be advanced to regular diet. Okay to discharge from surgical standpoint. No prescription medications are needed from my standpoint as well. Follow-up with Dr. Upton in 2 weeks. (2) Postoperative ileus: Onset Date: ~12/2020 Code(s): K91.89 - Other postprocedural complications and disorders of digestive system; K56.7 - Ileus, unspecified Status: Resolved Subjective Subjective Date/Time Seen: 01/29/21 12:03 Post Op day: #11 Patient reports: no new complaints, feels better, pain is less, tolerating a regular diet and afebrile Exam GI: Inspection: non-distended and incision ( All incisions healing well) GI Palp: Yes Soft to palpation and No Tenderness to palpation present (GI) Auscultation: normal bowel sounds Objective Data Vital Signs Vital Signs: Vital Signs - 24 hr 01/28/21 14:00 01/28/21 22:00 01/29/21 06:00 Temperature 36.6 C 36.3 C L 36.5 C Pulse Rate 77 80 70 Respiratory Rate 20 18 18 Blood Pressure 126/66 121/71 131/68 Pulse Oximetry 100 100 100 Intake/Output Intake/Output: Intake & Output 01/26/21 01/27/21 01/28/21 01/29/21 23:59 23:59 23:59 23:59 Intake Total 4010 1760 2710 780 Output Total 2100 1050 700 Balance 4810 079 2273 780 Meds/Results Medications: Active Medications Generic Name Dose Route Start Last Admin Trade Name Freq PRN Reason Stop Dose Admin Acetaminophen 1,000 mg 01/28/21 13:41 Acetaminophen 500 Mg Tablet PO Q6H PRN Pain 1-3 Hydrocodone Bitart/Acetaminophen 1 tab 01/24/21 12:14 Hydrocodone/Acetaminophen (*Crx) 5-325 Mg Tablet PO Q6H PRN Pain Rated 4-6 Amlodipine Besylate 10 mg 01/22/21 09:00 01/29/21 08:24 Amlodipine Besylate 5 Mg Tablet PO 10 mg DAILY GEMINI Administration Brimonidine Tartrate 1 drop 01/20/21 09:00 01/29/21 08:24 Brimonidine Tartrate 0.2% Op Soln 5 Ml Btl EACH EYE 1 drop Q12HR GEMINI Administration Ferrous Gluconate 324 mg 01/27/21 08:00 01/29/21 08:25 Ferrous Gluconate 324 Mg Tablet PO 324 mg DAILY@0800 GEMINI Administration Heparin Sodium (Porcine) 5,000 units 01/17/21 21:00 01/29/21 08:24 Heparin Sodium 5,000 Units/Ml Vial SUB-Q 5,000 units Q12HR GEMINI Administration Latanoprost 1 drop 01/15/21 21:00 01/28/21 20:19 Latanoprost 0.005% Op Soln 2.5 Ml Btl EACH EYE 1 drop HS GEMINI Administration Lorazepam 0.5 mg 01/24/21 15:49 Lorazepam (*Crx) 0.5 Mg Tablet PO Q6H PRN Anxiety Losartan Potassium 100 mg 01/22/21 09:00 01/29/21 08:25 Losartan Potassium 100 Mg Tablet PO 100 mg DAILY GEMINI Administration Metoclopramide HCl 5 mg 01/23/21 16:30 01/29/21 11:51 Metoclopramide Hcl 5 Mg Tablet PO 5 mg ACHS GEMINI Administration Ondansetron HCl 4 mg 01/14/21 23:46 01/22/21 05:40 Ondansetron Inj 4 Mg/2 Ml Vial IV PUSH 4 mg Q4H PRN Administration Nausea Pantoprazole Sodium 40 mg 01/25/21 09:00 01/29/21 08:24 Pantoprazole 40 Mg Tablet PO 40 mg QAM GEMINI Administration Polyethylene Glycol 17 gm 01/24/21 12:15 01/29/21 08:24 Polyethylene Glycol 3350 17 Gm Powd.Pack PO 17 gm QAM GEMINI Administration Pravastatin Sodium 20 mg 01/22/21 09:00 01/29/21 08:24 Pravastatin Sodium 20 Mg Tablet PO 20 mg DAILY GEMINI Administration Simethicone 80 mg 01/21/21 21:00 01/29/21 08:24 Simethicone 80 Mg Tab.Chew PO 80 mg QID GEMINI Administration Timolol Maleate 1 drop 01/15/21 09:00 01/29/21 08:24 Timolol Maleate 0.5% Op Soln 5 Ml Bottle EACH EYE 1 drop DAILY GEMINI Administration Zolpidem Tartrate 10 mg 01/22/21 09:13 01/29/21 00:09 Zolpidem Tartrate (*Crx) 5 Mg Tablet PO 10 mg HS PRN Administration Insomnia
[2021-01-29 14:00] VITALS: BP 124/65; PULSE 70; RESP 18; TEMP 36.6; O2SAT 94
--- NOTE | 2021-01-29 14:48 | PM.DS ---
DS: Admitting Diagnosis Admitting Diagnosis bowel obstruction, colonic mass DS: Discharge Diagnosis Discharge Diagnosis (1) Adenocarcinoma, colon: Onset Date: ~12/2020 Code(s): C18.9 - Malignant neoplasm of colon, unspecified Status: Acute Assessment and Plan: Ascending colonic mass, probably adenocarcinoma causing low-grade obstruction noted on CT abdomen/ pelvis on 01/14/2021 colonoscopy performed on 01/17/2021 which showed malignant-appearing colonic mass and ascending colon he is s/p right hemicolectomy on 01/18/[address] Upton Biopsy results: MODERATELY DIFFERENTIATED COLONIC ADENOCARCINOMA, 6.5 x 3.2 x 1.5 CM, IN ASCENDING COLON, INVADING THROUGH MUSCULARIS PROPRIA AND EXTENSIVELY INVOLVING PERICOLONIC FAT, NOT INVOLVING SEROSAL SURFACE OR RESECTION MARGINS. Appreciate oncology consultation. Follow-up as an outpatient in 2-[address] Kohler Cancer is T3 N0 MX stage II moderately differentiated adenocarcinoma of colon without perineural invasion and lymphovascular invasion (2) Postoperative ileus: Onset Date: ~12/2020 Code(s): K91.89 - Other postprocedural complications and disorders of digestive system; K56.7 - Ileus, unspecified Status: Resolved Assessment and Plan: Abdominal x-ray with mildly distended central small-bowel; most likely ileus. Resolved. He is passing flatus and had several bowel movements. Seen in consultation by general surgery. Diet was slowly advanced. He had issues with poor PO intake due to lack of appetite and abdominal fullness. Eventually was able to tolerate regular, soft & bite sized diet and was drinking adequate amount of fluids. He was evaluated by RD and calorie counts were initiated. He was counseled on dietary recommendations extensively as was his brother who will be assisting him with preparing meals. Continue with daily MiraLax Reglan with meals Increased mobility was encouraged with frequent ambulation. (3) Left renal mass: Code(s): N28.89 - Other specified disorders of kidney and ureter Status: Acute Assessment and Plan: Small left renal mass suspicious for renal cell cancer noted on CT abdomen/pelvis on 01/14/2021 Appreciate urology consultation Further evaluation of this renal mass was deferred while evaluating and treating colonic mass Plan for CT abdomen pelvis with and without contrast with renal mass protocol in 6-12 weeks per urology recommendations Outpatient urology follow-up with Dr. Ark will be arranged Patient and his brother aware of need for follow-up. (4) ELVIRA (acute kidney injury): Code(s): N17.9 - Acute kidney failure, unspecified Status: Deleted Assessment and Plan: Creatinine was 1.6 at presentation, felt to be related to dehydration given poor p.o. intake prior to presentation. Resolved. Creatinine normalized with IV fluids and remained stable at 0.6-0.8 (5) Anxiety: Code(s): F41.9 - Anxiety disorder, unspecified Status: Acute Assessment and Plan: Mood was stable with no issues. (6) Essential hypertension: Code(s): I10 - Essential (primary) hypertension Status: Acute Assessment and Plan: Blood pressure reviewed and was well controlled. Continue amlodipine and losartan (7) Normocytic anemia: Code(s): D64.9 - Anemia, unspecified Status: Acute Assessment and Plan: Suspect related to colon cancer. H&H remained stable with no evidence of blood loss. Iron panel consistent with anemia of chronic disease. Likely related to colon cancer. Received IV Venofer 01/25. Continue PO ferrous gluconate given low iron saturation. Follow-up with Dr. Kohler. DS: Summary Hospital Course Hospital Course: Date of admission: 01/14/2021 date of discharge: 01/29/2021 Chino Mitchell is a legally blind 75-year-old male with history of hypertension and hyperlipidemia who presented to t
== END 2021-01-29 18:45 | disposition home health service (06) | DRG 330 ==
LOC: ANHED 22:55 → ANH3MEDSUR 01-15 02:51
PROVIDERS: Internal Medicine; Internal Medicine Gastroenterology; Surgery; Admitting Provider Internal Medicine; Emergency Provider Emergency Medicine; Visit Provider Physician Assistant
PROC: 0DJ08ZZ Inspection of Upper Intestinal Tract, Via Natural or Artificial Opening Endoscopic (ICD-10-PCS; CPT 43235; principal; 2021-01-17 13:15)
PROC: 0DTF4ZZ Resection of Right Large Intestine, Percutaneous Endoscopic Approach (ICD-10-PCS; CPT 44204; principal; 2021-01-18 12:00)
DX: C18.2 Malignant neoplasm of ascending colon (principal); N17.9 Acute kidney failure, unspecified; K56.7 Ileus, unspecified; K91.89 Other postprocedural complications and disorders of digestive system; D63.0 Anemia in neoplastic disease; N28.89 Other specified disorders of kidney and ureter; E86.0 Dehydration; K64.8 Other hemorrhoids; K21.00 Gastro-esophageal reflux disease with esophagitis, without bleeding; K29.70 Gastritis, unspecified, without bleeding; R63.4 Abnormal weight loss; Z68.24 Body mass index [BMI] 24.0-24.9, adult; F41.9 Anxiety disorder, unspecified; G47.00 Insomnia, unspecified; I10 Essential (primary) hypertension; H40.9 Unspecified glaucoma; E78.5 Hyperlipidemia, unspecified; H54.8 Legal blindness, as defined in USA; Z79.899 Other long term (current) drug therapy; Z87.891 Personal history of nicotine dependence
CPT/HCPCS: 36415; 74018; 74177; 80048; 80053; 81001; 82378; 82607; 82728; 82746; 82948; 83540; 83550; 83690; 83735; 84100; 84466; 84478; 85014; 85018; 85025; 85027; 85610; 85730; 86850; 86900; 86901; 88305; 88309; 96360; 96361; 97110; 97116; 97161; 97165; 97530; 97535; 99285; A9270; C9113; J0360; J0690; J1100; J1644; J1756; J2001; J2060; J2270; J2405; J2550; J2704; J2710; J3010; J7030; J7120; Q9967

== ENCOUNTER 2021-02-21 14:21 | Outpatient (CLI) | payer MEDICARE, SELFPAY ==
[2021-02-21 14:50] LABS: Basophils Percent Auto 1.1 % (0.2-1.2); Eosinophils Absolute Auto 0.2 K/mm3 (0-0.3); Eosinophils Percent Auto 4.8 % (0-4.4); Hematocrit 37.7 % (42.0-52.0); Immature Granulocyte Absolute 0.01 K/mm3 (0.00-0.031); Immature Granulocyte Percent A 0.3 % (0-0.5); Lymphocytes Absolute Auto 0.88 K/mm3 (0.9-3.2); Lymphocytes Percent Auto 24.9 % (18.3-44.2); Mean Corpuscular HGB Conc 31.8 g/dl (32-36); Mean Corpuscular Hemoglobin 30.5 pg (26-34); Mean Corpuscular Volume 95.7 fl (80-100); Mean Platelet Volume 9.9 fl (7.4-10.4); Monocytes Absolute Auto 0.4 K/mm3 (0.1-0.6); Monocytes Percent Auto 12.2 % (2.6-8.5); Neutrophils Percent Auto 56.7 % (45.5-73.1); Platelet Count Result 164 k/mm3 (150-375); Red Blood Count 3.94 M/mm3 (4.6-6.20); Red Cell Distribution Width 13.8 % (11.5-14.5); White Blood Count 3.5 K/mm3 (4.5-10.0)
[2021-02-21 17:38] LABS: Alanine Aminotransferase 15 U/L (4-50); Alkaline Phosphatase 71 U/L (38-126); Anion Gap 11 mmol/L (8-16); Aspartate Amino Transferase 29 U/L (17-59); Bilirubin,Total 0.6 mg/dL (0.2-1.3); Blood Urea Nitrogen 7 mg/dL (9-20); Calcium 9.4 mg/dL (8.4-10.2); Carbon Dioxide 24 mmol/L (22-30); Chloride 107 mmol/L (98-107); Estimated Glomerular Filt Rate > 60; Glucose 90 mg/dL (65-110); Sodium 142 mmol/L (137-145)
[2021-02-21 18:08] LABS: Carcinoembryonic Antigen 3.2 ng/mL (0.0-3.0)
[2021-02-22 11:33] LABS: Iron 74 ug/dL (49-181)
[2021-02-22 11:42] LABS: Percent Iron Saturation 28 % (20-50)
== END 2021-02-21 14:22 | disposition home or self-care (01) ==
LOC: ANHLAB 14:26
PROVIDERS: PCP Clinical Nurse Specialist Psychiatric/Mental Health, Child & Family; Visit Provider Internal Medicine Hematology & Oncology
DX: C18.9 Malignant neoplasm of colon, unspecified (principal)
CPT/HCPCS: 36415; 80053; 82378; 82728; 83540; 83550; 85025

== ENCOUNTER 2021-04-27 12:34 | Outpatient (CLI) | payer MEDICARE, SELFPAY ==
--- NOTE | ~2021-04-27 | CT_ITS ---
EXAMINATION: CT abdomen pelvis w con DATE: 04/27/2021 14:03 INDICATION: Malignant neoplasm of colon TECHNIQUE: Computed tomography (CT) of the abdomen and pelvis was performed with 100 cc Omnipaque 350 intravenous contrast. Automated exposure control and iterative reconstruction technique were employe d. Exam dose: 349.84 mGy-cm total exam DLP. COMPARISON: 01/14/2021 CT abdomen pelvis FINDINGS: Mild bilateral gynecomastia. Normal heart size. Coronary artery calcifications are noted. No pericardial or pleural effusion. There is minimal discoid atelectasis or scarring of the lingula and left lower lobe. There is diffuse hepatic steatosis. No hepatic space-occupying mass lesion. The gallbladder is distended. No gallbladder wall thickening or pericholecystic fluid or fat strandin g. No bile duct or pancreatic duct dilatation. No pancreatic mass lesion or calcification. Normal spl enic size. No adrenal mass lesion. There are multiple bilateral small cortical cysts. There is a 1.3 cm exophytic apparently solid enhancing mass in the lateral aspect of lower pole left kidney, likely slightly increased in size since 01/14/2021; hypernephroma is suspected. Normal caliber of the abdominal aorta. No intraperitoneal or retroperitoneal or pelvic mass lesion or adenopathy or ascites is noted otherwi se. There is prostate enlargement. There is moderate diffuse thickening of the urinary bladder wall. Status post right colon resection. There is a prominent amount of fecal material throughout most of t he colon. No bowel obstruction or intraperitoneal free air. 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 No suspicious osteolytic or osteoblastic lesions are noted. IMPRESSION: 1.3 cm exophytic apparent solid enhancing mass at lateral aspect of lower pole left kidn ey; hypernephroma is suspected. Multiple bilateral small renal cortical cysts Prostate enlargement Status post right colectomy for colon Hepatic steatosis carcinoma Reviewed, dictated and finalized at [facility]. Reviewed, dictated and finalized at [facility]. IMPRESSION: 1.3 cm exophytic apparent solid enhancing mass at lateral aspect o f lower pole left kidney; hypernephroma is suspected. Multiple bilateral small renal cortical cysts Prostate enlargement Status post right colectomy for colon Hepatic steatosis carcinoma
[2021-04-27 13:22] LABS: Estimated Glomerular Filt Rate > 60
== END 2021-04-27 12:35 | disposition home or self-care (01) ==
LOC: ANHIMG 12:43
PROVIDERS: Visit Provider Internal Medicine Hematology & Oncology
DX: C18.2 Malignant neoplasm of ascending colon (principal); I25.10 Atherosclerotic heart disease of native coronary artery without angina pectoris; N62 Hypertrophy of breast; N28.1 Cyst of kidney, acquired; N40.0 Benign prostatic hyperplasia without lower urinary tract symptoms; Z90.49 Acquired absence of other specified parts of digestive tract
CPT/HCPCS: 74177; Q9967

== ENCOUNTER 2021-07-22 14:09 | Outpatient (CLI) | payer MEDICARE, SELFPAY ==
[2021-07-22 14:40] LABS: Basophils Percent Auto 1.1 % (0.2-1.2); Eosinophils Absolute Auto 0.1 K/mm3 (0-0.3); Eosinophils Percent Auto 1.4 % (0-4.4); Hematocrit 40.3 % (42.0-52.0); Hemoglobin 13.5 g/dL (14.0-18.0); Immature Granulocyte Absolute 0.04 K/mm3 (0.00-0.031); Immature Granulocyte Percent A 1.1 % (0-0.5); Lymphocytes Absolute Auto 0.98 K/mm3 (0.9-3.2); Lymphocytes Percent Auto 27.6 % (18.3-44.2); Mean Corpuscular HGB Conc 33.5 g/dl (32-36); Mean Corpuscular Hemoglobin 31.6 pg (26-34); Mean Corpuscular Volume 94.4 fl (80-100); Mean Platelet Volume 10.1 fl (7.4-10.4); Monocytes Absolute Auto 0.3 K/mm3 (0.1-0.6); Monocytes Percent Auto 8.5 % (2.6-8.5); Neutrophils Absolute Auto 2.1 K/mm3 (1.3-6.7); Neutrophils Percent Auto 60.3 % (45.5-73.1); Platelet Count Result 171 k/mm3 (150-375); Red Blood Count 4.27 M/mm3 (4.6-6.20); Red Cell Distribution Width 12.5 % (11.5-14.5); White Blood Count 3.6 K/mm3 (4.5-10.0)
[2021-07-22 14:55] LABS: Alanine Aminotransferase 19 U/L (4-50); Albumin Level 4.3 g/dL (3.5-5.1); Alkaline Phosphatase 69 U/L (38-126); Anion Gap 5 mmol/L (8-16); Aspartate Amino Transferase 26 U/L (17-59); Bilirubin,Total 0.8 mg/dL (0.2-1.3); Blood Urea Nitrogen 16 mg/dL (9-20); Calcium 9.3 mg/dL (8.4-10.2); Carbon Dioxide 31 mmol/L (22-30); Chloride 102 mmol/L (98-107); Estimated Glomerular Filt Rate > 60; Glucose 94 mg/dL (65-110); Potassium 4.3 mmol/L (3.4-5.0); Sodium 138 mmol/L (137-145)
== END 2021-07-22 14:10 | disposition home or self-care (01) ==
PROVIDERS: Visit Provider Internal Medicine Hematology & Oncology
DX: C18.9 Malignant neoplasm of colon, unspecified (principal)
CPT/HCPCS: 36415; 80053; 82378; 85025

== ENCOUNTER 2022-05-08 08:48 | Outpatient (CLI) | payer MEDICARE, SELFPAY ==
--- NOTE | ~2022-05-08 | CT_ITS ---
EXAMINATION: CT abdomen pelvis w con INDICATION: Malignant neoplasm of the colon TECHNIQUE: Computed tomographic images of the abdomen and pelvis were obtained after the administrati on of 100 cc of Omnipaque 350 intravenous contrast. The dose-length product (DLP) was 725.33 mGy-cm. Automated exposure control and iterative reconstruction technique were employed. COMPARISON: 04/27/2021 FINDINGS: Minimal dependent atelectasis is present in the lung bases. The heart size is normal. There are changes of right hemicolectomy. The liver, spleen, pancreas, gallbladder, and adrenal glands are normal. There are changes of interval cryoablation in the left kidney lower pole. Cysts of the kidne ys measure up to 6 mm on the left. No pathologically enlarged abdominal or pelvic lymph nodes are eleanor ntified. There is no free intraperitoneal gas or evidence of bowel obstruction. Bilateral gynecomasti a is noted. There is moderate lumbar spondylosis. Again noted is a compression fracture of the anteri or T12 vertebral body with exaggerated kyphosis centered at this level. IMPRESSION: 1. Changes of right hemicolectomy without evidence of recurrent or metastatic disease. 2. Interval cryoablation of a previously described left kidney mass. Reviewed, dictated and finalized at [facility] ENGRAVER IMPRESSION: 1. Changes of right hemicolectomy without evidence of recurrent or metastatic d isease. 2. Interval cryoablation of a previously described left kidney mass.
[2022-05-08 09:34] LABS: Estimated Glomerular Filt Rate > 60
[2022-05-08 12:05] LABS: Basophils Percent Auto 0.5 % (0.2-1.2); Eosinophils Absolute Auto 0.1 K/mm3 (0-0.3); Eosinophils Percent Auto 2.2 % (0-4.4); Hematocrit 39.5 % (42.0-52.0); Hemoglobin 12.7 g/dL (14.0-18.0); Immature Granulocyte Absolute 0.01 K/mm3 (0.00-0.031); Immature Granulocyte Percent A 0.2 % (0-0.5); Lymphocytes Absolute Auto 1.57 K/mm3 (0.9-3.2); Lymphocytes Percent Auto 28.4 % (18.3-44.2); Mean Corpuscular HGB Conc 32.2 g/dl (32-36); Mean Corpuscular Hemoglobin 30.8 pg (26-34); Mean Corpuscular Volume 95.9 fl (80-100); Monocytes Absolute Auto 0.6 K/mm3 (0.1-0.6); Monocytes Percent Auto 11.2 % (2.6-8.5); Neutrophils Absolute Auto 3.2 K/mm3 (1.3-6.7); Neutrophils Percent Auto 57.5 % (45.5-73.1); Platelet Count Result 169 k/mm3 (150-375); Red Blood Count 4.12 M/mm3 (4.6-6.20); Red Cell Distribution Width 12.2 % (11.5-14.5); White Blood Count 5.5 K/mm3 (4.5-10.0)
== END 2022-05-08 08:49 | disposition home or self-care (01) ==
PROVIDERS: Visit Provider Internal Medicine Hematology & Oncology
DX: C18.9 Malignant neoplasm of colon, unspecified (principal)
CPT/HCPCS: 74177; 85025; Q9967

== ENCOUNTER 2022-08-07 08:44 | Day surgery (SDC) | payer MEDICARE, SELFPAY ==
[2022-07-25 12:00] VITALS: BMI 25.1
[2022-08-07 09:15] VITALS: BP 145/78; PULSE 57; RESP 18; TEMP 36.8; O2SAT 100
--- NOTE | 2022-08-07 09:46 | WPDANESEPPF ---
Anes - Initial Pre Proc Eval Procedure: Operation Date: 08/07/22 10:00 Proposed Procedures p Screening Colonoscopy - Timbo Marquis MD Date/Time: 08/07/22 09:46 Surgeon: Tmibo Marquis MD Pre Op Diagnosis: History of Colon Cancer Patient Data Age: 76 Gender: M Height: 1.73 m Weight: 75 kg Allergies Allergy/AdvReac Type Severity Reaction Status Date / Time No Known Allergies Allergy Verified 07/25/22 12:04 Home Medications Medication Instructions Recorded Confirmed Type amlodipine 10 mg tablet 10 mg PO DAILY 01/14/21 07/25/22 History brimonidine 0.2 % eye drops 0.2 drp ophthalmic (eye) BID 01/14/21 07/25/22 History latanoprost 0.005 % eye drops 0.005 drp EACH EYE DAILY 01/14/21 07/25/22 History losartan 100 mg tablet 100 mg PO DAILY 01/14/21 07/25/22 History pravastatin 20 mg tablet 20 mg PO DAILY 01/14/21 07/25/22 History timolol maleate 0.5 % eye drops 0.5 drp EACH EYE DAILY 01/14/21 07/25/22 History zolpidem 10 mg tablet 10 mg PO HS PRN Insomnia 01/15/21 07/25/22 History ferrous gluconate 324 mg (38 mg 324 mg PO DAILY@0800 #30 tabs 01/29/21 07/25/22 Rx iron) tablet polyethylene glycol 3350 17 gram 17 g PO QAM PRN Constipation #30 ea 01/29/21 07/25/22 Rx oral powder packet (Miralax) Patient hx anesthesia problems: none Family hx anesthesia problems: none Results Review: All pre-operative results and documents have been reviewed as part of the pre-operative evaluation. [facility], [facility] Past Medical History Medical History Essential hypertension Glaucoma Hyperlipidemia Legally blind Surgical History Surgical History H/O hemicolectomy Hand assisted laparoscopic right hemicolectomy with ileocolic anastomosis History of eye surgery history of multiple bilateral eye surgeries History of facial surgery due to trauma Family History Family History Mother , 2003 Old age when she was in her 90s Father , 2002 Old age when he was in his 90s Sibling No active medical problems brother that pt lives with.. nothing significant Social History Social History Social History: He is single and has never been . He lives with his brother. He does not have any kids. 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 Smoking status: Former smoker Alcohol intake: never Drinks per week: 1 Substance use: never Substance use type: does not use Living arrangements: with family Gender identity (if verbalized by the patient): Male Spiritual care concerns: No Anes - Eval Final PreProcedure Day of Procedure 08/07/22 09:46 Patient weight: normal Heart: regular rate and rhythm Lungs: clear to auscultation Airway: Mallampati scale class II Neurological: alert and oriented Last oral intake: >/= 8 hours ASA classification: III Emergent: no Anesthetic plan: proceed Anesthesia type and monitoring: general GIVS and standard monitoring Results Review: All pre-operative results and documents have been reviewed as part of the pre-operative evaluation. Informed Consent: The patient's anesthetic plan and its attendant risks and benefits were discussed with the patient/family/POA. Questions were solicited and answers provided to the satisfaction of the patient/family/POA.
[2022-08-07] MEDS: LACTATED RINGERS 1,000 ML 150 ML IV CONT (09:50)
--- NOTE | 2022-08-07 10:28 | PM.HPGS ---
History of Present Illness History of Present Illness Consent: Risks, benefits, and alternatives have been discussed and questions answered. Patient agrees to proceed with procedure. Chief complaint: History of Colon Cancer Narrative: Chino Mitchell is a 76 year old male with ascending colon 2020 s/p surgery, here for follow-up Review of Systems Constitutional: Constitutional: Denies headache(s) and Denies weakness Eyes: Eyes: Denies blurry vision ENT: Reports Normal hearing present, Denies headache(s) and Denies neck pain Cardiovascular: Cardiovascular: Denies chest pain and Denies dyspnea Respiratory: Respiratory: Denies dyspnea Gastrointestinal: Gastrointestinal: Reports no additional gastrointestinal complaints Genitourinary: Genitourinary: Denies dysuria Musculoskeletal: Musculoskeletal: Denies neck pain Integumentary/Breasts: Skin/Breast: Denies dry skin Neurologic: Reports Normal hearing present, Denies headache(s) and Denies weakness Psychiatric: Psychiatric: Denies anxiety Endocrine: Endocrine: Denies change in body appearance Hematologic/Lymphatic: Hematologic/Lymphatic: Denies easy bleeding Allergic/Immunologic: Allergic/Immunologic: Denies urticaria PMF Past Medical History Medical History (Updated 08/07/22 @ 10:29 by Timbo Marquis MD) Essential hypertension Glaucoma History of colon cancer Hyperlipidemia Legally blind Surgical History Surgical History (Updated 08/07/22 @ 10:29 by Timbo Marquis MD) H/O hemicolectomy Hand assisted laparoscopic right hemicolectomy with ileocolic anastomosis History of eye surgery history of multiple bilateral eye surgeries History of facial surgery due to trauma Family History Family History Mother , 2003 Old age when she was in her 90s Father , 2002 Old age when he was in his 90s Sibling No active medical problems brother that pt lives with.. nothing significant Social History Social History Social History: He is single and has never been . He lives with his brother. He does not have any kids. 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 Smoking status: Former smoker Alcohol intake: never Drinks per week: 1 Substance use: never Substance use type: does not use Living arrangements: with family Gender identity (if verbalized by the patient): Male Spiritual care concerns: No Meds Home Medications and Allergies Home Medications Medication Instructions Recorded Confirmed Type amlodipine 10 mg tablet 10 mg PO DAILY 01/14/21 08/07/22 History brimonidine 0.2 % eye drops 0.2 drp ophthalmic (eye) BID 01/14/21 08/07/22 History latanoprost 0.005 % eye drops 0.005 drp EACH EYE DAILY 01/14/21 08/07/22 History losartan 100 mg tablet 100 mg PO DAILY 01/14/21 08/07/22 History pravastatin 20 mg tablet 20 mg PO DAILY 01/14/21 08/07/22 History timolol maleate 0.5 % eye drops 0.5 drp EACH EYE DAILY 01/14/21 08/07/22 History zolpidem 10 mg tablet 10 mg PO HS PRN Insomnia 01/15/21 08/07/22 History ferrous gluconate 324 mg (38 mg 324 mg PO DAILY@0800 #30 tabs 01/29/21 08/07/22 Rx iron) tablet polyethylene glycol 3350 17 gram 17 g PO QAM PRN Constipation #30 ea 01/29/21 08/07/22 Rx oral powder packet (Miralax) Allergies Allergy/AdvReac Type Severity Reaction Status Date / Time No Known Allergies Allergy Verified 08/07/22 10:23 Vital Signs Vital Signs - 24 hr 08/07/22 09:15 Temperature 98.3 F Pulse Rate 57 L Respiratory Rate 18 Blood Pressure 145/78 H Pulse Oximetry 100 Oxygen Delivery Room Air Exam Const: General: comfortable and no acute distress HENMT: Face/Nose/Sinus: Normal nare
[2022-08-07 11:00] VITALS: BP 94/55; PULSE 53; RESP 16; O2SAT 100
[2022-08-07 11:10] VITALS: BP 147/84; PULSE 66; RESP 20; O2SAT 95
--- NOTE | 2022-08-07 11:10 | WPDANESPN ---
Anes - Prog Note Post-Op Date/Time: 08/07/22 11:10 Cardiovascular status: normal Respiratory status: normal Airway patency: baseline Mental status: baseline Post-Op hydration status: normal Vital Signs: Last Vital Signs Temp 36.8 C 08/07/22 09:15 Pulse 57 L 08/07/22 09:15 Resp 18 08/07/22 09:15 BP 145/78 H 08/07/22 09:15 Pulse Ox 100 08/07/22 09:15 O2 Del Method Room Air 08/07/22 09:15 Pain Score (VAS): 0 Post-procedural complaints: none Patient Feedback: Patient satisfied with anesthetic care.
[2022-08-07 11:20] VITALS: BP 155/88; PULSE 62; RESP 20; O2SAT 95
== END 2022-08-07 11:55 | disposition home or self-care (01) ==
PROVIDERS: Visit Provider Internal Medicine Gastroenterology
PROC: 0DJD8ZZ Inspection of Lower Intestinal Tract, Via Natural or Artificial Opening Endoscopic (ICD-10-PCS; CPT 45378; principal; 2022-08-07 10:00)
DX: Z85.038 Personal history of other malignant neoplasm of large intestine (principal)
CPT/HCPCS: 45378

== ENCOUNTER 2022-09-01 16:03 | Outpatient (CLI) | payer MEDICARE, SELFPAY ==
--- NOTE | ~2022-09-01 | XR_ITS ---
EXAMINATION: XR chest 2V DATE: 09/01/2022 16:45 INDICATION: Left renal mass TECHNIQUE: PA and lateral views of the chest were obtained. COMPARISON: Chest radiograph dated 10/12/2020 FINDINGS: Eventration along the right hemidiaphragm. Unchanged mild linear atelectasis/scarring at the lingula. No other airspace opacities, pulmonary edema, pleural effusion or pneumothorax. Heart size is normal . Small hiatal hernia. Unchanged severe thoracolumbar kyphosis with severe anterior vertebral body he ight loss at T12 which most likely developmental although differential would include less likely sporting goods sales manager justice compression fracture. IMPRESSION: 1. No acute cardiopulmonary disease. Reviewed, dictated and finalized at [facility]. T DECK
[2022-09-01 16:44] LABS: Anion Gap 3 mmol/L (8-16); Blood Urea Nitrogen 14 mg/dL (9-20); Carbon Dioxide 30 mmol/L (22-30); Chloride 104 mmol/L (98-107); Estimated Glomerular Filt Rate > 60; Glucose 85 mg/dL (65-110); Sodium 137 mmol/L (137-145)
== END 2022-09-01 16:04 | disposition home or self-care (01) ==
PROVIDERS: Visit Provider Urology
DX: N28.89 Other specified disorders of kidney and ureter (principal)
CPT/HCPCS: 36415; 71046; 80048

== ENCOUNTER 2022-09-12 13:09 | Outpatient (CLI) | payer MEDICARE, SELFPAY ==
[2022-09-12 14:01] LABS: Basophils Percent Auto 0.7 % (0.2-1.2); Eosinophils Absolute Auto 0.1 K/mm3 (0-0.3); Eosinophils Percent Auto 2.4 % (0-4.4); Hematocrit 38.1 % (42.0-52.0); Hemoglobin 12.5 g/dL (14.0-18.0); Immature Granulocyte Absolute 0.01 K/mm3 (0.00-0.031); Immature Granulocyte Percent A 0.2 % (0-0.5); Lymphocytes Absolute Auto 1.04 K/mm3 (0.9-3.2); Lymphocytes Percent Auto 24.7 % (18.3-44.2); Mean Corpuscular HGB Conc 32.8 g/dl (32-36); Mean Corpuscular Hemoglobin 31.6 pg (26-34); Mean Corpuscular Volume 96.5 fl (80-100); Mean Platelet Volume 9.6 fl (7.4-10.4); Monocytes Absolute Auto 0.6 K/mm3 (0.1-0.6); Monocytes Percent Auto 13.8 % (2.6-8.5); Neutrophils Absolute Auto 2.5 K/mm3 (1.3-6.7); Neutrophils Percent Auto 58.2 % (45.5-73.1); Platelet Count Result 174 k/mm3 (150-375); Red Blood Count 3.95 M/mm3 (4.6-6.20); Red Cell Distribution Width 12.1 % (11.5-14.5); White Blood Count 4.2 K/mm3 (4.5-10.0)
[2022-09-12 14:14] LABS: Alanine Aminotransferase 15 U/L (6-50); Alkaline Phosphatase 63 U/L (38-126); Anion Gap 5 mmol/L (8-16); Aspartate Amino Transferase 24 U/L (17-59); Bilirubin,Total 0.7 mg/dL (0.2-1.3); Blood Urea Nitrogen 17 mg/dL (9-20); Calcium 8.7 mg/dL (8.4-10.2); Carbon Dioxide 29 mmol/L (22-30); Chloride 106 mmol/L (98-107); Estimated Glomerular Filt Rate > 60; Glucose 84 mg/dL (65-110); Potassium 4.3 mmol/L (3.4-5.0); Sodium 140 mmol/L (137-145)
[2022-09-12 14:43] LABS: Carcinoembryonic Antigen 2.8 ng/mL (0.0-3.0)
== END 2022-09-12 13:10 | disposition home or self-care (01) ==
PROVIDERS: Visit Provider Internal Medicine Hematology & Oncology
DX: C18.9 Malignant neoplasm of colon, unspecified (principal)
CPT/HCPCS: 36415; 80053; 82378; 85025

== ENCOUNTER 2023-03-12 09:36 | Outpatient (CLI) | payer MEDICARE, SELFPAY ==
[2023-03-12 10:08] LABS: Basophils Percent Auto 0.4 % (0.2-1.2); Eosinophils Absolute Auto 0.1 K/mm3 (0-0.3); Eosinophils Percent Auto 2.3 % (0-4.4); Hematocrit 41.1 % (42.0-52.0); Hemoglobin 13.4 g/dL (14.0-18.0); Immature Granulocyte Absolute 0.01 K/mm3 (0.00-0.031); Immature Granulocyte Percent A 0.2 % (0-0.5); Lymphocytes Absolute Auto 1.21 K/mm3 (0.9-3.2); Lymphocytes Percent Auto 25.2 % (18.3-44.2); Mean Corpuscular HGB Conc 32.6 g/dl (32-36); Mean Corpuscular Hemoglobin 31.3 pg (26-34); Mean Platelet Volume 9.3 fl (7.4-10.4); Monocytes Absolute Auto 0.6 K/mm3 (0.1-0.6); Monocytes Percent Auto 11.9 % (2.6-8.5); Neutrophils Absolute Auto 2.9 K/mm3 (1.3-6.7); Platelet Count Result 184 k/mm3 (150-375); Red Blood Count 4.28 M/mm3 (4.6-6.20); Red Cell Distribution Width 12.1 % (11.5-14.5); White Blood Count 4.8 K/mm3 (4.5-10.0)
[2023-03-12 10:19] LABS: Alanine Aminotransferase 14 U/L (6-50); Albumin Level 4.3 g/dL (3.5-5.1); Alkaline Phosphatase 67 U/L (38-126); Anion Gap 4 mmol/L (8-16); Aspartate Amino Transferase 27 U/L (17-59); Bilirubin,Total 0.6 mg/dL (0.2-1.3); Blood Urea Nitrogen 16 mg/dL (9-20); Carbon Dioxide 28 mmol/L (22-30); Chloride 104 mmol/L (98-107); Estimated Glomerular Filt Rate > 60; Glucose 96 mg/dL (65-110); Potassium 4.4 mmol/L (3.4-5.0); Sodium 136 mmol/L (137-145)
[2023-03-12 10:51] LABS: Carcinoembryonic Antigen 3.2 ng/mL (0.0-3.0)
== END 2023-03-12 09:37 | disposition home or self-care (01) ==
PROVIDERS: Visit Provider Internal Medicine Hematology & Oncology
DX: C18.9 Malignant neoplasm of colon, unspecified (principal)
CPT/HCPCS: 36415; 80053; 82378; 85025

== ENCOUNTER 2023-09-08 10:12 | Outpatient (CLI) | payer MEDICARE, SELFPAY ==
--- NOTE | ~2023-09-08 | XR_ITS ---
EXAMINATION: XR chest 2V DATE: 09/08/2023 10:46 INDICATION: Left renal mass TECHNIQUE: PA and lateral views of the chest were obtained. COMPARISON: Chest radiograph dated 09/01/2022 and 10/12/[address] dated 05/08/2022 FINDINGS: Eventration along the right hemidiaphragm. Chronic mild discoid atelectasis/scarring at the lingula a nd right lower lobe. The cardiomediastinal silhouette is normal. Small hiatal hernia. Unchanged sever e thoracolumbar kyphosis with severe anterior vertebral body height loss at T12. IMPRESSION: 1. Chronic mild linear discoid atelectasis/scarring at the bilateral lung bases. No acute cardiopulmo nary disease. Reviewed, dictated and finalized at [facility]. IMPRESSION: 1. Chronic mild linear discoid atelectasis/scarring at the bilateral lung bases . No acute cardiopulmonary disease.
[2023-09-08 11:22] LABS: Basophils Percent Auto 0.4 % (0.2-1.2); Eosinophils Absolute Auto 0.1 K/mm3 (0-0.3); Eosinophils Percent Auto 2.2 % (0-4.4); Hematocrit 42.4 % (42.0-52.0); Hemoglobin 13.5 g/dL (14.0-18.0); Immature Granulocyte Absolute 0.01 K/mm3 (0.00-0.031); Immature Granulocyte Percent A 0.2 % (0-0.5); Lymphocytes Absolute Auto 1.22 K/mm3 (0.9-3.2); Lymphocytes Percent Auto 27.4 % (18.3-44.2); Mean Corpuscular HGB Conc 31.8 g/dl (32-36); Mean Corpuscular Hemoglobin 30.8 pg (26-34); Mean Corpuscular Volume 96.8 fl (80-100); Mean Platelet Volume 9.4 fl (7.4-10.4); Monocytes Absolute Auto 0.5 K/mm3 (0.1-0.6); Monocytes Percent Auto 12.1 % (2.6-8.5); Neutrophils Absolute Auto 2.6 K/mm3 (1.3-6.7); Neutrophils Percent Auto 57.7 % (45.5-73.1); Platelet Count Result 204 k/mm3 (150-375); Red Blood Count 4.38 M/mm3 (4.6-6.20); Red Cell Distribution Width 12.4 % (11.5-14.5); White Blood Count 4.5 K/mm3 (4.5-10.0)
[2023-09-08 11:48] LABS: Alanine Aminotransferase 13 U/L (6-50); Albumin Level 4.2 g/dL (3.5-5.1); Alkaline Phosphatase 78 U/L (38-126); Anion Gap 9 mmol/L (8-16); Aspartate Amino Transferase 24 U/L (17-59); Bilirubin,Total 0.7 mg/dL (0.2-1.3); Blood Urea Nitrogen 14 mg/dL (9-20); Calcium 9.4 mg/dL (8.4-10.2); Carbon Dioxide 23 mmol/L (22-30); Chloride 107 mmol/L (98-107); Estimated Glomerular Filt Rate > 60; Glucose 87 mg/dL (65-110); Potassium 4.1 mmol/L (3.4-5.0); Sodium 139 mmol/L (137-145)
[2023-09-08 12:18] LABS: Carcinoembryonic Antigen 2.9 ng/mL (0.0-3.0)
== END 2023-09-08 10:13 | disposition home or self-care (01) ==
LOC: ANHIMG 10:19
PROVIDERS: Internal Medicine Hematology & Oncology; Visit Provider Urology
DX: C18.9 Malignant neoplasm of colon, unspecified (principal); N28.89 Other specified disorders of kidney and ureter
CPT/HCPCS: 36415; 71046; 80053; 82378; 85025

== ENCOUNTER 2024-03-17 10:34 | Outpatient (CLI) | payer MEDICARE, SELFPAY ==
[2024-03-17 11:45] LABS: Basophils Percent Auto 0.4 % (0.2-1.2); Eosinophils Absolute Auto 0.1 K/mm3 (0-0.3); Eosinophils Percent Auto 2.7 % (0-4.4); Hematocrit 38.2 % (42.0-52.0); Hemoglobin 12.6 g/dL (14.0-18.0); Immature Granulocyte Absolute 0.01 K/mm3 (0.00-0.031); Immature Granulocyte Percent A 0.2 % (0-0.5); Lymphocytes Percent Auto 29.2 % (18.3-44.2); Mean Corpuscular Hemoglobin 31.7 pg (26-34); Monocytes Absolute Auto 0.6 K/mm3 (0.1-0.6); Monocytes Percent Auto 11.9 % (2.6-8.5); Neutrophils Absolute Auto 2.7 K/mm3 (1.3-6.7); Neutrophils Percent Auto 55.6 % (45.5-73.1); Platelet Count Result 171 k/mm3 (150-375); Red Blood Count 3.98 M/mm3 (4.6-6.20); Red Cell Distribution Width 12.1 % (11.5-14.5); White Blood Count 4.8 K/mm3 (4.5-10.0)
[2024-03-17 12:11] LABS: Alanine Aminotransferase 11 U/L (6-50); Alkaline Phosphatase 76 U/L (38-126); Anion Gap 8 mmol/L (4-12); Aspartate Amino Transferase 22 U/L (17-59); Bilirubin,Total 0.7 mg/dL (0.2-1.3); Blood Urea Nitrogen 15 mg/dL (9-20); Carbon Dioxide 24 mmol/L (22-30); Chloride 105 mmol/L (98-107); Estimated Glomerular Filt Rate > 60; Glucose 80 mg/dL (65-110); Sodium 137 mmol/L (137-145)
== END 2024-03-17 10:35 | disposition home or self-care (01) ==
LOC: ANHLAB 10:38
PROVIDERS: Visit Provider Internal Medicine Hematology & Oncology
DX: C18.9 Malignant neoplasm of colon, unspecified (principal)
CPT/HCPCS: 36415; 80053; 82378; 85025

== ENCOUNTER 2024-03-26 15:12 | Outpatient (CLI) | payer MEDICARE, SELFPAY ==
--- NOTE | ~2024-03-26 | CT_ITS ---
EXAMINATION: CT chest abdomen pelvis w con DATE: 03/26/2024 15:48 INDICATION: Malignant neoplasm of colon. TECHNIQUE: Computed tomography (CT) of the chest, abdomen, and pelvis was performed with 100 mL Omnip aque 350 intravenous contrast. Automated exposure control and iterative reconstruction technique were employed. The dose-length product was 742.66 mGy-cm. COMPARISON: CT abdomen and pelvis 05/08/2022 FINDINGS: CHEST CT: There is mild scarring at right lung apex. There is mild atelectasis bilaterally. No pleural effusion . The heart size is normal. No pericardial effusion. There is mild thoracic spondylosis. T12 may be a segmentation anomaly or old fracture. There is focal kyphosis at T12. ABDOMEN/PELVIS CT: The liver, gallbladder, spleen, pancreas, adrenal glands are normal. There is cortical thinning of th e kidneys. There are cysts in left kidney measuring up to 7 mm. There are changes of cryoablation of left kidney. There are changes of right hemicolectomy. There are no dilated loops of bowel. There is a large right hydrocele. There is a small left hydrocele. There are no pathologically enlarged lymph nodes. There is no free intraperitoneal fluid. There is mild lumbar spondylosis. IMPRESSION: 1. No evidence of metastatic disease. Reviewed, dictated and finalized at location [facility].
== END 2024-03-26 15:13 | disposition home or self-care (01) ==
LOC: ANHIMG 15:23
PROVIDERS: Visit Provider Internal Medicine Hematology & Oncology
DX: C18.9 Malignant neoplasm of colon, unspecified (principal)
CPT/HCPCS: 71260; 74177; Q9967

== ENCOUNTER 2024-08-01 17:22 | Outpatient (CLI) | payer MEDICARE, SELFPAY ==
--- OUTSIDE RECORDS SUMMARY | 2024-08-01 17:28 | XMS_ITS | Clinical Summary ---
Author Organization [facility] Address [address] [place] [address] Care Team Providers Care Imcu Specialist Name Role Phone Unavailable Primary Care Provider Unavailabl e Source Comments [facility],non-owned Affiliates and Associated Physician Practices is amultiple site organization consisting of ambulatory clinics and hospital sitesin [place], [place], [place] and [place]. This disclosure is being madepursuant to the Care Everywhere program and may not contain all information available regarding this patient. Last updated 18.[facility] Allergies No known active allergies Medications * Be aware that medications may not be up to date on this document. Alwaysverify current medications with the patient. Medication Sig Dispensed Refills Start Date End Date Status timolol maleate (TIMOPTIC) 0.5 % ophthalmic solution Instill 1 Drop into both eyes once. Active brimonidine (ALPHAGAN) 0.2 % ophthalmic solution Instill 1 Drop into both eyes 2 times daily. Active travoprost (TRAVATAN) 0.004 % ophthalmic solution Instill 1 Drop into both eyes at bedtime. Active valsartan (DIOVAN) 160 MG tablet Take 160 mg by mouth daily. Active zolpidem (AMBIEN) 10 MG tablet Take 10 mg by mouth nightly as needed for Insomnia. Active atorvastatin (LIPITOR) 10 MG tablet Take 10 mg by mouth at bedtime. Active aspirin 325 MG tablet Take 325 mg by mouth daily. Active sodium chloride (OCEAN; BABY AYR) 0.65 % nasal spray [place] 1 spray into each nostril as needed for Dry Nose 30 mL 1 11/29/2019 Active acetaminophen (TYLENOL) 325 MG tablet Take 325 mg by mouth every 4 hours as needed for Fever or Pain Maximum allowable Acetaminophen amount = 4 Grams (4000 mg) / 24 hours. Active Active Problems No known active problems Immunizations Name Administration Dates Next Due TDAP (7yrs+) 11/29/2019(Deferred: Patient Refused - pt states he had one 5 yrs ago) Social History Tobacco Use Types Packs/Day Years Used Date Smoking Tobacco: Former Smokeless Tobacco: Never Alcohol Use Standard Drinks/Week Comments No 0 (1 standard drink = 0.6 oz pur e alcohol) Sex and Gender Information Value Date Recorded Sex Assigned at Not on file Gender Identity Not on file Sexual Orientation Not on file Last Filed Vital Signs Vital Sign Reading Time Taken Comments Blood Pressure 147/89 01/20/2020 1:06 PM CDT Pulse 101 01/20/2020 1:06 PM CDT Temperature 36.7 C (98 F) 01/20/2020 1:06 PM CDT Respiratory Rate 19 11/29/2019 4:48 AM CDT Oxygen Saturation 97% 01/20/2020 1:06 PM CDT Inhaled Oxygen Concentration - - Weight 93 kg (205 lb) 02/18/2020 1:18 PM CDT Height 172.7 cm (5' 8 ) 01/20/2020 1:06 PM CDT Body Mass Index 31.17 01/20/2020 1:06 PM CDT Plan of Treatment Health Maintenance Due Date Last Done Comments HEPATITIS C SCREENING 12/05/1963 DTAP/TDAP/TD VACCINES (1 - Tdap) 1965 PNEUMOCOCCAL VACCINE 50+ (1 of 1 - PCV) 1996 ZOSTER VACCINE (1 of 2) 1996 Respiratory Syncytial Virus (RSV) Vaccine Pt: or over 60 yrs (1 - 1-dose 75+ series) 2021 COVID-19 VACCINE ( - 2023-2 5 season) 2024 INFLUENZA VACCINE (#1) 2024 DEPRESSION SCREENING 06/25/2024 MEDICARE AWV CALENDAR YEAR 2024 HEPATITIS B VACCINE Aged Out No longe r eligible based on patient's age to complete this topic HIB VACCINE Aged Out No longer eligi ble based on patient's age to complete this topic HPV VACCINE Aged Out No longer eligi ble based on patient's age to complete this topic MENINGOCOCCAL (Group B) VACCINE Aged Out No longer eligible based on patient's age to complete this topic MENINGOCOCCAL VACCINE Aged Out No laura mike eligible based on patient's age to complete this topic Goals Goal Patient Goal Type Associated Problems Recent Progress Patient-Stated? Author Mobility/ROM General No Tracy Summers, RN Note: Expected end date: ongoing The goal is to maintain or improve your mobility at the optimum level for you. Interventions:
--- OUTSIDE RECORDS SUMMARY | 2024-08-01 17:28 | XMS_ITS | Encounter Summary ---
Author Organization [facility] [employer] [facility] Address [address] [place] [address] Care Team Providers Care Life Support Technician Name Role Phone Provider, Abstract Primary Care Provider Unavail able Reason for Visit * Reason Onset Date Comments appointment blood work 08/01/2024 Encounter Details Date Type Department Care Team (Late st Contact Info) Description 08/01/2024 Telephone [facility] Oncology and Hematology - [place] [address] [facility] [address] [place] [address] Kleber Kohler MD [address] [facility] [address] [place] [address] appointment blood work Social History Tobacco Use Types Packs/Day Years Used Date Smoking Tobacco: Former Cigarettes Smokeless Tobacco: Never Alcohol Use Standard Drinks/Week Comments Not Currently 0 (1 standard drink = 0.6 oz pur e alcohol) Sex and Gender Information Value Date Recorded Sex Assigned at Not on file Legal Sex Male 11:27 AM CDT Gender Identity Not on file Sexual Orientation Not on file documented as of this encounter Miscellaneous Notes * Telephone Encounter - Ernestina Martinez - 08/01/2024 9:28 AM CST Called and talked to patient about need for lab work with a appointment reminder. Patient was confused and handed the phone to his brother. His brother stated we did not give them orders for blood work. I told him we do not automatically print labs they have to request them. Brother was upset I said [facility] and [facility] can get them today or tomorrow. Patients brother stated understanding. DE PHONE SALES documented in this encounter Plan of Treatment Upcoming Encounters Date Type Department Care Team (Late st Contact Info) Description 08/04/2024 2:45 PM INSIDE PHONE SALES Office Visit [facility] Oncology and Hematology - [place] [address] [facility] [address] [place] [address] Kleber Kohler MD [address] [facility] [address] [place] [address] documented as of this encounter Visit Diagnoses Not on filedocumented in this encounter Care Teams Life Support Technician Relationship Specialty Start Date End Date Provider, Abstract NO ADDRESS ON FILE PCP - General 02/21/21 documented as of this encounter
--- OUTSIDE RECORDS SUMMARY | 2024-08-01 17:28 | XMS_ITS | Referral Summary ---
Author Organization [facility] [employer] Address [address] [place] [address] Care Team Providers Care Manager Ob Name Role Phone Unavailable Primary Care Provider Unavailabl e Source Comments [facility] [employer],non-owned Affiliates and Associated Physician Practices is amultiple site organization consisting of ambulatory clinics and hospital sitesin [place], [place], [place] and [place]. This disclosure is being madepursuant to the Care Everywhere program and may not contain all information available regarding this patient. Last updated 18.[facility] Allergies No known active allergies Medications * [...] (OCEAN; BABY AYR) 0.65 % nasal spray [place] 1 spray into each nostril as needed [...] 01/20/2020 1:06 PM CDT Plan of Treatment Not on file Goals Goal Patient Goal Type Associated Problems Recent Progress Patient-Stated? Author Mobility/ROM General No Tracy Summers, RN Note: Expected end date: ongoing The goal is to maintain or improve your mobility at the optimum level for you. Interventions:
--- OUTSIDE RECORDS SUMMARY | 2024-08-01 17:28 | XMS_ITS | Clinical Summary ---
Author Organization [facility] Address [address] [place] [address] Care Team Providers Care Cigarette Making Machine Catcher Name Role Phone Lina Cleary APRN Primary Ca re Provider Allergies No known active allergies Medications losartan (COZAAR) 100 mg tabletIndicatio ns:hypertension Take 1 tablet (100 mg total) by mouth every morning 3 8 Active pravastatin (PRAVACHOL) 20 mg tabletIndicatio ns:hyperlipidem ia Take 1 tablet (20 mg total) by mouth nightly 0 8 Active aspirin 81 mg tabletIndicatio ns:prevention of thrombosis Take 1 tablet (81 mg total) by mouth daily Active multivitamin capsuleIndicati ons:Vitamin Deficiency Prevention Take 1 capsule by mouth every morning Active zolpidem (AMBIEN) 10 mg tabletIndicatio ns:Sleep-Onset Insomnia Take 1 tablet (10 mg total) by mouth nightly as needed 0 Active glycerin/propyl deedee glycol (SOOTHE LUBRICANT OPHT)Indication s:dry eye Administer 1 drop into affected eye(s) as needed Active polyethylene glycol (MIRALAX) 17 gram/dose powderIndicatio ns:constipation Take 17 g by mouth as needed Active ferrous gluconate 324 mg (38 mg of elemental iron) tablet Take 1.0133 tablets (328.32 mg total) by mouth 2 (two) times a day 1 Active ammonium lactate (AMLACTIN) 12 % creamIndication s:Dry Skin Apply 1 application topically every morning 1 Active oxyCODONE (ROXICODONE) 5 mg immediate release tabletIndicatio ns:Pain Take 1 tablet (5 mg total) by mouth every 4 (four) hours as needed for pain 10 tablet 2 Active cholecalciferol (VITAMIN D-3) 50,000 unit capsule TAKE 1 CAPSULE BY MOUTH EVERY WEEK DIRECTED FOR 84 DAYS 2 Active FeroSuL 325 mg (65 mg iron) tablet Take 1 tablet (325 mg total) by mouth 2 (two) times a day 2 Active amLODIPine (NORVASC) 10 mg tablet Take 1 tablet (10 mg total) by mouth daily 2 Active brimonidine (ALPHAGAN) 0.2 % ophthalmic solution Administer 1 drop into both eyes 2 (two) times a day 10 mL 2 4 Active latanoprost (XALATAN) 0.005 % ophthalmic solution Administer 1 drop into both eyes nightly 10 mL 2 4 Active timolol (TIMOPTIC) 0.5 % ophthalmic solution Administer 1 drop into both eyes every morning 10 mL 2 4 Active Hospital, Clinic, or Other Facility Administered Medication Ordered Dose Route Frequency Start Date End Date Status aflibercept (EYLEA) 2 mg/0.05 mL intraocular injection 2 mgIndications:Myopic degeneration, bilateral 2 mg 05/06/2018 A ctive aflibercept (EYLEA) 2 mg/0.05 mL intraocular injection 2 mgIndications:Myopic degeneration, left 2 mg 07/25/2018 Active Active Problems Problem Noted Date Diagnosed Date Left renal mass 11/11/2021 Malignant neoplasm of ascending colon (CMS/HCC) 02/21/2021 10/09/2022 Diplopia 06/14/2020 Assessment & Plan (06/14/2020 1:13 PM PULP HOUSE SUPERVISOR): Based on exam today, I think the patient is experiencing monocular diplopia. No e/o ocular misalignment on exam. Pt has significant superficial punctate keratopathy which is likely contributing to his symptoms. He is on 4 classes of glaucoma meds and ATs which I think may be contributing to this. His pressures are likely low enough to stop a med but I hesitate to do so since he is so well controlled and monocular. I have recommended evaluation with glaucoma service to determine if stopping a med would be prudent. Visual changes 04/22/2020 Assessment & Plan (04/22/2020 9:12 AM CDT): See Dr. Sharp for evaluation for visual changes and occasional diplopia. 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 Monocular. Assessment & Plan (04/02/2023 2:04 PM CDT): Here for IOP check and OCT RNFL IOP at goal, compliant with gtt OCT difficult to interpret today Likely need to primarily follow subjective vision and Goldmann only. IOP goal is <12 ou, 10/8 today Vision likely limited by retinal findings Continue drops: Latanoprost qhs OU Brimonidine BID OU Timolol qd OU Return: 4 months for HVF 10-2 vs Vasquez visual field Assessment & Plan (10/09/2022 3:07 PM CDT): Here for IOP check and DFEx. IOP at goal, compliant with gtt Prior OCT difficult to interpret. Likely need to primarily follow subjective vision and Goldmann only. IOP goal is <12 ou, 12/12 today. Vision likely limited by retinal findings Continue drops: Latanoprost qhs OU Brimonidine BID OU Timolol qd OU Return: 4 months for OCT RNFL OU Assessment & Plan (06/05/2022 4:20 PM PULP HOUSE SUPERVISOR): Here for 10-2 HVF - had concern for progression on prior 24-2 patel. 10-2 OU today : right eye: larger central scotoma but also has macular pathology, left eye small central island unchanged from earlier this year. Prior OCT difficult to interpret. Likely need to primarily follow subjective vision and Goldmann only. IOP goal is <12 ou, 06/06 today. Continue drops: Latanoprost qhs OU Brimonidine BID OU Timolol qd OU Return: 4 months for DFE. (plan to do GVF in future) Assessment & Plan (01/30/2022 1:58 PM CDT): Here for f/u after GVF last week - had concern for progression on prior 24-2 patel. Can't confirm progression on baseline GVF field alone; no recent multiple OCTs to trend. IOP is great. IOP goal is <12 ou. Continue drops: Latanoprost qhs OU Brimonidine BID OU Timolol qd OU Return: 4 months, Repeat 10-2 at that time Assessment & Plan (06/06/2021 12:45 PM PULP HOUSE SUPERVISOR): Referred from optometry for evaluation with glaucoma considering monocular status and borderline IOP. - limited vision due to hx of high myopia with hx of macular hole right eye (OD), CF ecc OD Assessment: - prior HVF shows progression limited by reliability Plan: Assessment & Plan (04/01/2021 4:27 PM CDT): IOP borderline today on 3 classes OU, previously <10. I suspect limited vision OS is due to posterior segment and hx of high myopia with lamellar hole. HVF shows progression today with questionable reliability, not c/w acuity and confounded by myopic degeneration. CPM for now. Recommended evaluation with glaucoma considering monocular status and borderline IOP. Assessment & Plan (11/26/2020 3:35 PM CDT): Patient's intraocular pressure (IOP) stable in low teens. Ocular surface improved today. I suspect limited vision OS is due to posterior segment and hx of high myopia with lamellar hole on OCT last visit. Will continue Brimonidine BID both eyes (OU), Timolol QAM, and Latanoprost at bedtime (QHS) both eyes (OU). F/u in 4 months for 24-2 VF + OCT + DFE. Assessment & Plan (10/21/2020 9:39 AM CDT): See Dr. Sharp. Assessment & Plan (06/14/2020 1:15 PM PULP HOUSE SUPERVISOR): Previously followed by eye associates. IOP excellent today on 4 classes with some mild keratopathy which I think is contributing to his visual symptoms. I have recommended evaluation with glaucoma service to get their opinion on goal IOP and possible stopping a med. Due for VF as well. Continue 4 classes for now. RTC for evaluation with glaucoma service to discuss the possibility of stopping a med and weighing in on goal IOP. Assessment & Plan (02/12/2020 11:48 AM CDT): Previously followed by eye associates. Now transferring all care to [facility]. IOP excellent today on 3 classes. CPM with drops. F/u in 4 months for ON OCT + IOP ck. Pseudophakia of both eyes 02/12/2020 Assessment & Plan (11/26/2020 3:07 PM CDT): Stable, continue to monitor. Assessment & Plan (02/12/2020 11:48 AM CDT): Clear Ou. Observe. Myopic degeneration, bilateral 04/15/2018 Assessment & Plan (04/01/2021 4:20 PM CDT): No SRF/IRF today. Stable, monitor. Assessment & Plan (10/21/2020 9:38 AM CDT): Stable today, recommend observation. Follow with Dr. Sharp. Assessment & Plan (06/14/2020 1:16 PM PULP HOUSE SUPERVISOR): No SRF/IRF today. Stable. Keep f/u with PKR as scheduled. Assessment & Plan (04/22/2020 9:11 AM CDT): Remains stable. Recommend observation. Assessment & Plan (02/12/2020 11:49 AM CDT): Hx of SRF OS. Acuity stable on exam today. Last OCT with Dr. Crawley last month. Continue to follow with Dr. Crawley as scheduled. Monocular precautions. Return precautions with any decline in vision. Assessment & Plan (12/25/2019 10:11 AM CDT): Last ANABEL OS 06/2018 Stable and dry today Continue to monitor. Continue 6 mo follow up. Assessment & Plan (06/26/2019 9:50 AM PULP HOUSE SUPERVISOR): Last ANABEL OS 06/2018 Stable and dry today Continue to monitor. Consider extending follow up to 6 mo. Assessment & Plan (03/17/2019 9:10 AM CDT): Last ANABEL left eye (OS) 06/2018 Has remained stable since with observation Today OCT without evidence of fluid Continue to monitor for now. Assessment & Plan (01/13/2019 9:49 AM CDT): Last ANABEL left eye (OS) 06/2018 Has remained stable since with observation Today OCT without evidence of fluid Continue to monitor for now. Assessment & Plan (12/02/2018 10:04 AM CDT): Last ANABEL left eye (OS) 06/2018 Has remained stable since with observation Today OCT without evidence of fluid Continue to monitor for now. Assessment & Plan (10/14/2018 11:43 AM CDT): Status post multiple Eylea left eye. Appears fairly stable following last months injection of Eylea to the left eye. Appears stable today when compared to the previous OCT. The patient notes no changes in his vision. Therefore we recommend continued observation and follow up in about 2 months, sooner if there are any changes in the vision. Patient knows to call should his vision worsen in any way. Assessment & Plan (09/02/2018 11:24 AM CDT): Appears fairly stable following last months injection of Eylea to the left eye. We reviewed his symptoms and the trace amount of subretinal fluid in the left eye and discussed the possibility of another injection versus observation. At this point the patient feels things are very stable wishes for observation at this time. We will re-evaluate roughly 4-6 weeks. Patient knows to call should his vision worsen in any way. Assessment & Plan (07/18/2018 2:27 PM PULP HOUSE SUPERVISOR): Patient has a small choroidal neovascular complex in the macula left eye associated with myopic degeneration. Recommended anti-VEGF (Eylea) therapy to the left eye. Risks, benefits, alternatives discussed with patient. Assessment & Plan (06/06/2018 3:35 PM PULP HOUSE SUPERVISOR): Improved following Eylea OS - recommend observation. 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 Recommended anti-VEGF therapy to the left eye. Risks, benefits, alternatives discussed with patient. Will attempt using Eylea with insurance company approval versus Avastin if needed. Macular hole, right eye 04/15/2018 Assessment & Plan (04/01/2021 4:20 PM CDT): Chronic, pt has seen retina and no treatment was recommended. Monitor. Assessment & Plan (11/26/2020 3:36 PM CDT): Released from retina at last visit, will monitor closely. Monocular precautions. Assessment & Plan (10/21/2020 9:38 AM CDT): Chronic, remains stable. Assessment & Plan (06/14/2020 1:13 PM PULP HOUSE SUPERVISOR): Chronic. Stable. Monocular precautions. Assessment & Plan (04/22/2020 9:11 AM CDT): Chronic, remains stable, recommend observation. 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 Monocular precautions reviewed. F/u with Dr. Crawley as scheduled. Sooner prn. Assessment & Plan (12/25/2019 10:11 AM CDT): Chronic, stable Continue to observe.Guarded prognosis.. Assessment & Plan (06/26/2019 9:51 AM PULP HOUSE SUPERVISOR): Chronic, stable Continue to observe.Guraded prognosis. Assessment & Plan (03/17/2019 9:10 AM CDT): Chronic,Stable today. Observe. Assessment & Plan (01/13/2019 9:49 AM CDT): Chronic,Stable today Observe. Assessment & Plan (12/02/2018 10:04 AM CDT): Chronic,Stable today, recommend observation. Assessment & Plan (10/14/2018 11:43 AM CDT): Chronic, guarded prognosis, recommend observation. Assessment & Plan (09/02/2018 11:24 AM CDT): Stable today, recommend observation. Assessment & Plan (07/18/2018 2:16 PM PULP HOUSE SUPERVISOR): Chronic macular hole right eye recommend observation. Assessment & Plan (06/06/2018 3:34 PM PULP HOUSE SUPERVISOR): Chronic macular hole right eye recommend observation. Assessment & Plan (04/15/2018 4:37 PM CDT): Chronic macular hole right eye recommend observation. Encounters Date Type Department Care Team Description 06/13/2024 Telephone [facility] Ophthalmology [address] [place] [id number] Kamran Monet MD 06/13/2024 Telephone [facility] Ophthalmology [facility] [place] [address] Demetri Bradford II, MD Med Refill from Last 3 Months Immunizations Name Administration Dates Next Due Influenza, Quadrivalent, Hig h Dose, Preservative Free, Intrr 04/19/2021,04/01/2020 Influenza, Quadrivalent, Split, Intramuscular ,04/11/2016 Influenza, Quadrivalent, Spl it, Preservative Free, Intramuscular 03/12/2018,04/13/2015 Influenza, Trivalent, High D ose, Split, Preservative Free, Intramuscular 03/13/2019 Pneumococcal Conjugate PCV 13 10/17/2016 Tdap 10/17/2016 Surgical History Surgery Date Site/Laterality Comments CATARACT EXTRACTION W/ INTRAOCULAR LENS IMPLANT Date U NK 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/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 Medical History Medical History Date Comments Glaucoma Dx'd Approx 2002 OU (Type UNK) Eye trauma Approx 30+ Yrs Ago Trauma w/ Ho le s/p Repair (Type UNK) Hypertension Colon cancer (CMS/HCC) (HCC) HLD (hyperlipidemia) Family History Medical History Relation Name Comments Glaucoma Brother Blindness Cousin Transient ischemic attack Father Stroke Mother Anesthesia problems Neg Hx Diabetes Neg Hx Macular degeneration Neg Hx Retinal detachment Neg Hx Thyroid disease Neg Hx Relation Name Status Comments Brother Cousin Father Mother Social History Tobacco Use Types Packs/Day Years Used Date Smoking Tobacco: Former Cigarettes Q uit: 1979 Smokeless Tobacco: Never AUDIT-C Answer Date Recorded Q1: How often do you have a drink containing alc ohol? Monthly or less 11/11/2021 Q2: How many drinks containi ng alcohol do you have on a typical day when you are drinking? 1 or 2 11/11/2021 Q3: How often do you have si x or more drinks on one occasion? Never 11/11/2021 Sex and Gender Information Value Date Recorded Sex Assigned at Not on file Legal Sex Male 6:32 AM PULP HOUSE SUPERVISOR Gender Identity Not on file Sexual Orientation Not on file Obstetrics History Last Filed Vital Signs Vital Sign Reading Time Taken Comments Blood Pressure 160/81 11/11/2021 2:10 PM CDT Pulse 75 11/11/2021 2:10 PM CDT Temperature 36.1 C (97 F) 11/11/2021 2:10 PM CDT Respiratory Rate 23 11/11/2021 2:10 PM CDT Oxygen Saturation 100% 11/11/2021 2:10 PM CDT Inhaled Oxygen Concentration - - Weight 72 kg (158 lb 11.7 oz) 11/11/2021 6:30 AM CDT Height 172.7 cm (5' 8 ) 11/11/2021 6:30 AM CDT Body Mass Index 24.14 11/11/2021 6:30 AM CDT Plan of Treatment Health Maintenance Due Date Last Done Comments Depression Screening 1945 Hepatitis C Screening 1945 Hepatitis B Screening 1964 Zoster Vaccine (1 of 2) 1996 Well Visit 65+ 12/11/2011 Pneumococcal vaccine 65+ (2 of 2 - PPSV23 or PCV20) 10/17/2017 10/17/2016 Fall Risk Assessment 11/11/2022 11/11/2021 Covid-19 Vaccine (4 - 2023-2 5 season) 2024 04/19/2021, 09/07/2020, 08/17/2020 Influenza Vaccine (#1) 2024 , 04/01/2020, 03/13/2019, Additional history exists DTaP/Tdap/Td Vaccine (2 - Td or Tdap) 10/17/2026 10/17/2016 Abdominal Aortic Aneurysm (A AA) Screen Completed 04/28/2021 Insurance MEDICARE SOLUTIONS [employer] MEDICARE MEDICARE SOLUTIONS Care Teams Cigarette Making Machine Catcher Relationship Specialty Start Date End Date Lina Cleary APRN [address] [place] [address] PCP - General Nurse Practitioner 05/06/18
--- OUTSIDE RECORDS SUMMARY | 2024-08-01 17:28 | XMS_ITS | Patient Health Summary ---
Author Organization [facility] Address [address] [place] [address] Care Team Providers Care Cloud Administrator Name Role Phone Unavailable Primary Care Provider Unavailabl e Note from [facility],non-owned Affiliates and Associated Physician Practices is amultiple site organization consisting of ambulatory clinics and hospital sitesin [place], [place], [place] and [place]. This disclosure is being madepursuant to the Care Everywhere program and may not contain all information available regarding this patient. Last updated 18.[facility] Allergies No known active allergies Medications * Be aware that medications may not be up to date on this document. Alwaysverify current medications with the patient. * timolol maleate (TIMOPTIC) 0.5 % ophthalmic solution Instill 1 Drop into both eyes once. * brimonidine (ALPHAGAN) 0.2 % ophthalmic solution Instill 1 Drop into both eyes 2 times daily. * travoprost (TRAVATAN) 0.004 % ophthalmic solution Instill 1 Drop into both eyes at bedtime. * valsartan (DIOVAN) 160 MG tablet Take 160 mg by mouth daily. * zolpidem (AMBIEN) 10 MG tablet Take 10 mg by mouth nightly as needed for Insomnia. * atorvastatin (LIPITOR) 10 MG tablet Take 10 mg by mouth at bedtime. * aspirin 325 MG tablet Take 325 mg by mouth daily. * sodium chloride (OCEAN; BABY AYR) 0.65 % nasal spray(Started 11/29/2019) [place] 1 spray into each nostril as needed for Dry Nose 1 refill by 11/28/2020 * acetaminophen (TYLENOL) 325 MG tablet Take 325 mg by mouth every 4 hours as needed for Fever or Pain Maximum allowable Acetaminophen amount = 4 Grams (4000 mg) / 24 hours. Active Problems No known active problems Social History Tobacco Use Types Packs/Day Years [...] Mass Index 31.17 01/20/2020 1:06 PM CDT Procedures * XR SHOULDER LEFT 2VW OR MORE(Performed 02/18/2020) Performed for Closed fracture of proximal end of left humerus with routine healing, unspecified fracture morphology, subsequent encounter * XR SHOULDER LEFT 2VW OR MORE(Performed 01/07/2020) Performed for Closed fracture of proximal end of left humerus with routine healing, unspecified fracture morphology, subsequent encounter * XR SHOULDER LEFT 2VW OR MORE(Performed 2019) Performed for Closed fracture of proximal end of left humerus, unspecified fracture morphology, initial encounter * ED LACERATION REPAIR(Performed 11/29/2019) Performed for Facial laceration, initial encounter * ED LACERATION REPAIR(Performed 11/29/2019) Performed for Facial laceration, initial encounter * CT FACIAL BONES WO CONTRAST(Performed 11/29/2019) Performed for Trauma * CT CERVICAL SPINE WO CONTRAST(Performed 11/29/2019) Performed for Trauma * CT HEAD WO CONTRAST(Performed 11/29/2019) Performed for Trauma * XR SHOULDER LEFT 2VW OR MORE(Performed 11/28/2019) Performed for Trauma Results * XR SHOULDER LEFT 2VW OR MORE (02/18/2020 1:19 PM CDT) Only the most recent of4 resultswithin the time period is included. Anatomical Region Laterality Modality Upper Extremity Radiographic Rajani ging 02/18/2020 2:04 PM CDT Impressions 02/18/2020 2:43 PM CDT Impression: 1. Unchanged osseous alignment. Dictated by Chino Goodson M.D. (manager of radiology). Dr. SUNDEEP Reyes MD have personally reviewed and interpreted this examination/study. This report was electronically signed by SUNDEEP BERRY MD on 02/18/2020 2:43 PM . Narrative 02/18/2020 2:43 PM CDT Examination: XR SHOULDER LEFT 3 view History:Left humerus fracture Comparison: 01/07/2020 Findings: There is no definite fracture. Contour deformity at the medial aspect of the humeral head-neck junction may represent an osteophyte or chronic deformity and is unchanged. There is no dislocation. There is mild degenerative change. Procedure Note Sundeep Berry MD - 02/18/2020 Examination: XR SHOULDER LEFT 3 view History:Left humerus fracture Comparison: 01/07/2020 Findings: There is no definite fracture. Contour deformity at the medial aspect of the humeral head-neck junction may represent an osteophyte or chronic deformity and is unchanged. There is no dislocation. There is mild degenerative change. Impression: 1. Unchanged osseous alignment. Dictated by Chino Goodson M.D. (manager of radiology). Dr. SUNDEEP Reyes MD have personally reviewed and interpreted this examination/study. This report was electronically signed by SUNDEEP BERRY MD on02/18/2020 2:43 PM . Zhen Padgett MD DIAGNOSTIC IMAGING O RDERABLES * Laceration Repair (11/29/2019 2:26 AM CDT) Narrative Eugene Serna MD - 11/29/2019 2:26 AM CDT Carissa Le MD 11/29/2019 2:49 AM Laceration Repair Date/Time: 11/29/2019 2:47 AM Performed by: Carissa Le MD Authorized by: Eugene Serna MD Consent: Consent obtained: Verbal Consent given by: Patient Risks discussed: Infection, pain, poor cosmetic result and need for additional repair Alternatives discussed: No treatment Anesthesia (see MAR for exact dosages): Anesthesia method: Local infiltration Local anesthetic: Lidocaine 1% WITH epi Laceration details: Location: above left side of upper lip. Length (cm): 1 Repair type: Repair type: Simple Exploration: Contaminated: no Treatment: Area cleansed with: Saline Amount of cleaning: Standard Irrigation solution: Sterile saline Skin repair: Repair method: Sutures Suture size: 5-0 Suture material: Prolene Suture technique: Simple interrupted Number of sutures: 2 Approximation: Approximation: Close Post-procedure details: Dressing: Antibiotic ointment Patient tolerance of procedure: Tolerated well, no immediate complications Eugene Serna MD PROCEDURE/MINOR SURGICAL ORDERABLES * Laceration Repair (11/29/2019 2:26 AM CDT) Narrative Eugene Serna MD - 11/29/2019 2:26 AM CDT Carissa Le MD 11/29/2019 2:49 AM Laceration Repair Date/Time: 11/29/2019 2:26 AM Performed by: Carissa Le MD Authorized by: Eugene Serna MD Consent: Consent obtained: Verbal Consent given by: Patient Risks discussed: Infection, pain, poor cosmetic result, poor wound healing and need for additional repair Anesthesia (see MAR for exact dosages): Anesthesia method: Local infiltration Local anesthetic: Lidocaine 1% WITH epi Laceration details: Location: Face Face location: L eyebrow Length (cm): 3 (u-shaped) Repair type: Repair type: Simple Pre-procedure details: Preparation: Patient was prepped and draped in usual sterile fashion Exploration: Wound exploration: wound explored through full range of motion Contaminated: no Treatment: Area cleansed with: Saline Amount of cleaning: Standard Irrigation solution: Sterile saline Visualized foreign bodies/material removed: no Skin repair: Repair method: Sutures Suture size: 5-0 Suture material: Prolene Suture technique: Simple interrupted Number of sutures: 9 Approximation: Approximation: Close Post-procedure details: Dressing: Antibiotic ointment Patient tolerance of procedure: Tolerated well, no immediate complications Comments: Supervised medical student Rich Le Eugene Serna MD PROCEDURE/MINOR SURGICAL ORDERABLES * CT CERVICAL SPINE WO CONTRAST (11/29/2019 12:15 AM CDT) Anatomical Region Laterality Modality Spine Computed Tomogra phy 11/29/2019 12:5 7 AM CDT Impressions 11/29/2019 12:22 PM CDT IMPRESSION: 1.No acute intracranial hemorrhage, mass effect, or midline shift. 2.Mildly displaced bilateral nasal bone fractures. 3.There is a mildly displaced fracture of the left maxilla frontal process. 4.No evidence of acute fracture in the cervical spine. This report was approved by Chino Goodson on 11/29/2019 12:21 PM . I, Dr. DEANNA FERNANDEZ have personally reviewed and interpreted this examination/study. This report was electronically signed by DEANNA FERNANDEZ on 11/29/2019 12:22 PM . Narrative 11/29/2019 12:[address] HEAD WO CONTRAST, CT FACIAL BONES WO CONTRAST, CT CERVICAL SPINE WO CONTRAST DATE: 11/29/2019 12:16 AM EXAMINATION: 1. Computed tomography (CT) of the head without contrast 2. CT of the maxillofacial bones, orbits, and paranasal sinuses without contrast 3. CT of the cervical spine without contrast HISTORY: Trauma TECHNIQUE: CT of the head, cervical spine, and maxillofacial bones, orbits, and paranasal sinuses was performed without contrast according to standard protocol. FINDINGS: No prior study is available for comparison at the time of this dictation. Head: Images are degraded due to motion artifacts. Scan was repeated. No acute intra- or extra-axial fluid collections are identified. There is mild cerebral volume loss with associated ex vacuo ventricular dilatation. The basilar cisterns are patent. No mass effect or midline shift is seen. The maki-white matter differentiation is normal. Periventricular white matter hypoattenuation is indicative of chronic small vessel ischemic disease. There is vascular calcification of the carotid siphons. No acute calvarial fracture is identified. There is a moderate soft tissue hematoma of the left frontal scalp. Maxillofacial: There is a large hematoma of the right cheek, marginally extending to the right periorbital soft tissues. Minute cutaneous radiodensities at this location are nonspecific but cannot exclude foreign bodies. Elongation of the eye globes bilaterally, likely represent staphylomas. Other than an old right inferomedial orbital defect, bilateral cataract extraction, and likely a glaucoma drainage device along the inferior right orbit, the orbits appear grossly unremarkable. There is a chronic right maxillary sinus anterior wall deformity. The paranasal sinuses are clear. The hard palate, mandible, and temporomandibular joints appear normal. There are mildly displaced bilateral nasal bone fractures. There is a mildly displaced fracture of the left maxillary frontal process. The mastoid air cells are clear. No soft tissue abnormality is identified. Cervical spine: Stranding of normal cervical lordosis. There are degenerative loss of height of C5, C6, and to a lesser extent C7 vertebral bodies with endplate degenerative changes and minimal sclerosis. Vertebral bodies are normal in height without evidence of acute fracture. Other than middle atlantoaxial joint osteoarthritis, the craniocervical junction appears normal. There is mild degenerative disc disease, worst at C5-C6 and C6-C7. Mild spinal canal narrowing at multiple levels, related to disc with somewhat complex is. No significant central canal stenosis is seen. There are varying degrees of moderate facet osteoarthritis. There are varying degrees of mild uncovertebral joint osteoarthritis with the same degree of neural foraminal stenosis at these levels. No soft tissue abnormality is identified. Procedure Note Deanna Fernandez MD - 11/29/2019 CT HEAD WO CONTRAST, CT FACIAL BONES WO CONTRAST, CT CERVICAL SPINE WO CONTRAST DATE: 11/29/2019 12:16 AM EXAMINATION: 1. Computed tomography (CT) of the head without contrast 2. CT of the maxillofacial bones, orbits, and paranasal sinuses without contrast 3. CT of the cervical spine without contrast HISTORY: Trauma TECHNIQUE: CT of the head, cervical spine, and maxillofacial bones, orbits, and paranasal sinuses was performed without contrast accordingto standard protocol. FINDINGS: No prior study is available for comparison at the time of this dictation. Head: Images are degraded due to motion artifacts. Scan was repeated. No acute intra- or extra-axial fluid collections are identified. Thereis mild cerebral volume loss with associated ex vacuo ventriculardilatation. The basilar cisterns are patent. No mass effect or midline shift isseen. The maki-white matter differentiation is normal. Periventricular white matter hypoattenuation is indicative of chronic small vessel ischemic disease. There is vascular calcification of the carotid siphons. Noacute calvarial fracture is identified. There is a moderate soft tissuehematoma of the left frontal scalp. Maxillofacial: There is a large hematoma of the right cheek, marginally extending tothe right periorbital soft tissues. Minute cutaneous radiodensities at this location are nonspecific but cannot exclude foreign bodies. Elongationof the eye globes bilaterally, likely represent staphylomas. Other than an old right inferomedial orbital defect, bilateral cataract extraction,and likely a glaucoma drainage device along the inferior right orbit, the orbits appear grossly unremarkable. There is a chronic right maxillary sinus anterior wall deformity. The paranasal sinuses are clear. The hard palate, mandible, and temporomandibular joints appear normal. There are mildly displaced bilateral nasal bone fractures. There is a mildly displaced fracture of the left maxillary frontal process. The mastoidair cells are clear. No soft tissue abnormality is identified. Cervical spine: Stranding of normal cervical lordosis. There are degenerative loss of height of C5, C6, and to a lesser extent C7 vertebral bodies withendplate degenerative changes and minimal sclerosis. Vertebral bodies are normalin height without evidence of acute fracture. Other than middleatlantoaxial joint osteoarthritis, the craniocervical junction appears normal. Thereis mild degenerative disc disease, worst at C5-C6 and C6-C7. Mild spinal canal narrowing at multiple levels, related to disc with somewhatcomplex is. No significant central canal stenosis is seen. There are varying degrees of moderate facet osteoarthritis. There are varying degrees of mild uncovertebral joint osteoarthritis with the same degree of neural foraminal stenosis at these levels. No soft tissue abnormality is identified. IMPRESSION: 1.No acute intracranial hemorrhage, mass effect, or midline shift. 2.Mildly displaced bilateral nasal bone fractures. 3.There is a mildly displaced fracture of the left maxilla frontal process. 4.No evidence of acute fracture in the cervical spine. This report was approved by Chino Goodson on 11/29/2019 12:21 PM . I, Dr. DEANNA FERNANDEZ have personally reviewed and interpreted this examination/study. This report was electronically signed by DEANNA FERNANDEZ on11/29/2019 12:22 PM . Eugene Serna MD CT ORDERABLES * CT FACIAL BONES WO CONTRAST (11/29/2019 12:15 AM CDT) Anatomical Region Laterality Modality Head Computed Tomogra phy 11/29/2019 12:5 7 AM CDT Impressions 11/29/2019 12:22 PM CDT IMPRESSION: 1.No acute intracranial hemorrhage, mass effect, or midline shift. 2.Mildly displaced bilateral nasal bone fractures. 3.There is a mildly displaced fracture of the left maxilla frontal process. 4.No evidence of acute fracture in the cervical spine. This report was approved by Chino Goodson on 11/29/2019 12:21 PM . I, Dr. DEANNA FERNANDEZ have personally reviewed and interpreted this examination/study. This report was electronically signed by DEANNA FERNANDEZ on 11/29/2019 12:22 PM . Narrative 11/29/2019 12:[address] HEAD WO CONTRAST, CT FACIAL BONES WO CONTRAST, CT CERVICAL SPINE WO CONTRAST DATE: 11/29/2019 12:16 AM EXAMINATION: 1. Computed tomography (CT) of the head without contrast 2. CT of the maxillofacial bones, orbits, and paranasal sinuses without contrast 3. CT of the cervical spine without contrast HISTORY: Trauma TECHNIQUE: CT of the head, cervical spine, and maxillofacial bones, orbits, and paranasal sinuses was performed without contrast according to standard protocol. FINDINGS: No prior study is available for comparison at the time of this dictation. Head: Images are degraded due to motion artifacts. Scan was repeated. No acute intra- or extra-axial fluid collections are identified. There is mild cerebral volume loss with associated ex vacuo ventricular dilatation. The basilar cisterns are patent. No mass effect or midline shift is seen. The maki-white matter differentiation is normal. Periventricular white matter hypoattenuation is indicative of chronic small vessel ischemic disease. There is vascular calcification of the carotid siphons. No acute calvarial fracture is identified. There is a moderate soft tissue hematoma of the left frontal scalp. Maxillofacial: There is a large hematoma of the right cheek, marginally extending to the right periorbital soft tissues. Minute cutaneous radiodensities at this location are nonspecific but cannot exclude foreign bodies. Elongation of the eye globes bilaterally, likely represent staphylomas. Other than an old right inferomedial orbital defect, bilateral cataract extraction, and likely a glaucoma drainage device along the inferior right orbit, the orbits appear grossly unremarkable. There is a chronic right maxillary sinus anterior wall deformity. The paranasal sinuses are clear. The hard palate, mandible, and temporomandibular joints appear normal. There are mildly displaced bilateral nasal bone fractures. There is a mildly displaced fracture of the left maxillary frontal process. The mastoid air cells are clear. No soft tissue abnormality is identified. Cervical spine: Stranding of normal cervical lordosis. There are degenerative loss of height of C5, C6, and to a lesser extent C7 vertebral bodies with endplate degenerative changes and minimal sclerosis. Vertebral bodies are normal in height without evidence of acute fracture. Other than middle atlantoaxial joint osteoarthritis, the craniocervical junction appears normal. There is mild degenerative disc disease, worst at C5-C6 and C6-C7. Mild spinal canal narrowing at multiple levels, related to disc with somewhat complex is. No significant central canal stenosis is seen. There are varying degrees of moderate facet osteoarthritis. There are varying degrees of mild uncovertebral joint osteoarthritis with the same degree of neural foraminal stenosis at these levels. No soft tissue abnormality is identified. Procedure Note Deanna Fernandez MD - 11/29/2019 CT HEAD WO CONTRAST, CT FACIAL BONES WO CONTRAST, CT CERVICAL SPINE WO CONTRAST DATE: 11/29/2019 12:16 AM EXAMINATION: 1. Computed tomography (CT) of the head without contrast 2. CT of the maxillofacial bones, orbits, and paranasal sinuses without contrast 3. CT of the cervical spine without contrast HISTORY: Trauma TECHNIQUE: CT of the head, cervical spine, and maxillofacial bones, orbits, and paranasal sinuses was performed without contrast accordingto standard protocol. FINDINGS: No prior study is available for comparison at the time of this dictation. Head: Images are degraded due to motion artifacts. Scan was repeated. No acute intra- or extra-axial fluid collections are identified. Thereis mild cerebral volume loss with associated ex vacuo ventriculardilatation. The basilar cisterns are patent. No mass effect or midline shift isseen. The maki-white matter differentiation is normal. Periventricular white matter hypoattenuation is indicative of chronic small vessel ischemic disease. There is vascular calcification of the carotid siphons. Noacute calvarial fracture is identified. There is a moderate soft tissuehematoma of the left frontal scalp. Maxillofacial: There is a large hematoma of the right cheek, marginally extending tothe right periorbital soft tissues. Minute cutaneous radiodensities at this location are nonspecific but cannot exclude foreign bodies. Elongationof the eye globes bilaterally, likely represent staphylomas. Other than an old right inferomedial orbital defect, bilateral cataract extraction,and likely a glaucoma drainage device along the inferior right orbit, the orbits appear grossly unremarkable. There is a chronic right maxillary sinus anterior wall deformity. The paranasal sinuses are clear. The hard palate, mandible, and temporomandibular joints appear normal. There are mildly displaced bilateral nasal bone fractures. There is a mildly displaced fracture of the left maxillary frontal process. The mastoidair cells are clear. No soft tissue abnormality is identified. Cervical spine: Stranding of normal cervical lordosis. There are degenerative loss of height of C5, C6, and to a lesser extent C7 vertebral bodies withendplate degenerative changes and minimal sclerosis. Vertebral bodies are normalin height without evidence of acute fracture. Other than middleatlantoaxial joint osteoarthritis, the craniocervical junction appears normal. Thereis mild degenerative disc disease, worst at C5-C6 and C6-C7. Mild spinal canal narrowing at multiple levels, related to disc with somewhatcomplex is. No significant central canal stenosis is seen. There are varying degrees of moderate facet osteoarthritis. There are varying degrees of mild uncovertebral joint osteoarthritis with the same degree of neural foraminal stenosis at these levels. No soft tissue abnormality is identified. IMPRESSION: 1.No acute intracranial hemorrhage, mass effect, or midline shift. 2.Mildly displaced bilateral nasal bone fractures. 3.There is a mildly displaced fracture of the left maxilla frontal process. 4.No evidence of acute fracture in the cervical spine. This report was approved by Chino Goodson on 11/29/2019 12:21 PM . I, Dr. DEANNA FERNANEDZ have personally reviewed and interpreted this examination/study. This report was electronically signed by DEANNA FERNANDEZ on11/29/2019 12:22 PM . Carissa Le MD CT ORDERABLES * CT HEAD WO CONTRAST (11/29/2019 12:15 AM CDT) Anatomical Region Laterality Modality Head Computed Tomogra phy 11/29/2019 12:5 7 AM CDT Impressions 11/29/2019 12:22 PM CDT IMPRESSION: 1.No acute intracranial hemorrhage, mass effect, or midline shift. 2.Mildly displaced bilateral nasal bone fractures. 3.There is a mildly displaced fracture of the left maxilla frontal process. 4.No evidence of acute fracture in the cervical spine. This report was approved by Chino Goodson on 11/29/2019 12:21 PM . I, Dr. DEANNA FERNANDEZ have personally reviewed and interpreted this examination/study. This report was electronically signed by DEANNA FERNANDEZ on 11/29/2019 12:22 PM . Narrative 11/29/2019 12:[address] HEAD WO CONTRAST, CT FACIAL BONES WO CONTRAST, CT CERVICAL SPINE WO CONTRAST DATE: 11/29/2019 12:16 AM EXAMINATION: 1. Computed tomography (CT) of the head without contrast 2. CT of the maxillofacial bones, orbits, and paranasal sinuses without contrast 3. CT of the cervical spine without contrast HISTORY: Trauma TECHNIQUE: CT of the head, cervical spine, and maxillofacial bones, orbits, and paranasal sinuses was performed without contrast according to standard protocol. FINDINGS: No prior study is available for comparison at the time of this dictation. Head: Images are degraded due to motion artifacts. Scan was repeated. No acute intra- or extra-axial fluid collections are identified. There is mild cerebral volume loss with associated ex vacuo ventricular dilatation. The basilar cisterns are patent. No mass effect or midline shift is seen. The maki-white matter differentiation is normal. Periventricular white matter hypoattenuation is indicative of chronic small vessel ischemic disease. There is vascular calcification of the carotid siphons. No acute calvarial fracture is identified. There is a moderate soft tissue hematoma of the left frontal scalp. Maxillofacial: There is a large hematoma of the right cheek, marginally extending to the right periorbital soft tissues. Minute cutaneous radiodensities at this location are nonspecific but cannot exclude foreign bodies. Elongation of the eye globes bilaterally, likely represent staphylomas. Other than an old right inferomedial orbital defect, bilateral cataract extraction, and likely a glaucoma drainage device along the inferior right orbit, the orbits appear grossly unremarkable. There is a chronic right maxillary sinus anterior wall deformity. The paranasal sinuses are clear. The hard palate, mandible, and temporomandibular joints appear normal. There are mildly displaced bilateral nasal bone fractures. There is a mildly displaced fracture of the left maxillary frontal process. The mastoid air cells are clear. No soft tissue abnormality is identified. Cervical spine: Stranding of normal cervical lordosis. There are degenerative loss of height of C5, C6, and to a lesser extent C7 vertebral bodies with endplate degenerative changes and minimal sclerosis. Vertebral bodies are normal in height without evidence of acute fracture. Other than middle atlantoaxial joint osteoarthritis, the craniocervical junction appears normal. There is mild degenerative disc disease, worst at C5-C6 and C6-C7. Mild spinal canal narrowing at multiple levels, related to disc with somewhat complex is. No significant central canal stenosis is seen. There are varying degrees of moderate facet osteoarthritis. There are varying degrees of mild uncovertebral joint osteoarthritis with the same degree of neural foraminal stenosis at these levels. No soft tissue abnormality is identified. Procedure Note Deanna Fernandez MD - 11/29/2019 CT HEAD WO CONTRAST, CT FACIAL BONES WO CONTRAST, CT CERVICAL SPINE WO CONTRAST DATE: 11/29/2019 12:16 AM EXAMINATION: 1. Computed tomography (CT) of the head without contrast 2. CT of the maxillofacial bones, orbits, and paranasal sinuses without contrast 3. CT of the cervical spine without contrast HISTORY: Trauma TECHNIQUE: CT of the head, cervical spine, and maxillofacial bones, orbits, and paranasal sinuses was performed without contrast accordingto standard protocol. FINDINGS: No prior study is available for comparison at the time of this dictation. Head: Images are degraded due to motion artifacts. Scan was repeated. No acute intra- or extra-axial fluid collections are identified. Thereis mild cerebral volume loss with associated ex vacuo ventriculardilatation. The basilar cisterns are patent. No mass effect or midline shift isseen. The maki-white matter differentiation is normal. Periventricular white matter hypoattenuation is indicative of chronic small vessel ischemic disease. There is vascular calcification of the carotid siphons. Noacute calvarial fracture is identified. There is a moderate soft tissuehematoma of the left frontal scalp. Maxillofacial: There is a large hematoma of the right cheek, marginally extending tothe right periorbital soft tissues. Minute cutaneous radiodensities at this location are nonspecific but cannot exclude foreign bodies. Elongationof the eye globes bilaterally, likely represent staphylomas. Other than an old right inferomedial orbital defect, bilateral cataract extraction,and likely a glaucoma drainage device along the inferior right orbit, the orbits appear grossly unremarkable. There is a chronic right maxillary sinus anterior wall deformity. The paranasal sinuses are clear. The hard palate, mandible, and temporomandibular joints appear normal. There are mildly displaced bilateral nasal bone fractures. There is a mildly displaced fracture of the left maxillary frontal process. The mastoidair cells are clear. No soft tissue abnormality is identified. Cervical spine: Stranding of normal cervical lordosis. There are degenerative loss of height of C5, C6, and to a lesser extent C7 vertebral bodies withendplate degenerative changes and minimal sclerosis. Vertebral bodies are normalin height without evidence of acute fracture. Other than middleatlantoaxial joint osteoarthritis, the craniocervical junction appears normal. Thereis mild degenerative disc disease, worst at C5-C6 and C6-C7. Mild spinal canal narrowing at multiple levels, related to disc with somewhatcomplex is. No significant central canal stenosis is seen. There are varying degrees of moderate facet osteoarthritis. There are varying degrees of mild uncovertebral joint osteoarthritis with the same degree of neural foraminal stenosis at these levels. No soft tissue abnormality is identified.
--- OUTSIDE RECORDS SUMMARY | 2024-08-01 17:28 | XMS_ITS | Encounter Summary ---
Author Organization [facility] Address [address] [place] [address] Care Team Providers Care Clinical Sociologist Name Role Phone Provider, Abstract Primary Care Provider Unavail able Encounter Details Date Type Department Care Team (Late Contact Info) Description 07/31/2024 Orders Only [facility] Oncology and Hematology [facility] [address] [place] [address] Kleber Kohler MD [address] [place] [address] Malignant neoplasm of colon, unspecified part of colon (CMS/HCC) (Primary Dx) Social History Tobacco Use Types Packs/Day Years [...] on file documented as of this encounter Plan of Treatment Upcoming Encounters Date Type Department Care Team (Late Contact Info) Description 08/04/2024 2:45 PM PILOT CONTROL OPERATOR HELPER Office Visit [facility] Oncology and Hematology - [place] [address] [place] [address] Kleber Kohler MD [address] [place] [address] Scheduled Orders Name Type Priority Associated Diagnoses Orde r Schedule CBC WITH DIFFERENTIAL Lab Routine Malignant neoplasm of colon, unspecified part of colon (CMS/HCC) Expected: 07/31/2024, Expires: 07/31/2025 COMPREHENSIVE METABOLIC PANEL Lab Routine Malignant neoplasm of colon, unspecified part of colon (CMS/HCC) Expected: 07/31/2024, Expires: 07/31/2025 CEA Lab Routine Malignant neoplasm of colon, unspecified part of colon (CMS/HCC) Expected: 09/25/2024, Expires: 07/31/2025 documented as of this encounter Visit Diagnoses Diagnosis Malignant neoplasm of colon, unspecified part of colon (CMS/HCC)- Primary documented in this encounter Care Teams Clinical Sociologist Relationship Specialty Start Date End Date Provider, Abstract NO ADDRESS ON FILE PCP - General 02/21/21 documented as of this encounter
--- OUTSIDE RECORDS SUMMARY | 2024-08-01 17:28 | XMS_ITS | Clinical Summary ---
Author Organization [facility] Address [address] [place] [address] Care Team Providers Care Technician Trainee Name Role Phone Provider, Abstract Primary Care Provider Unavail able Allergies No known active allergies Medications METOCLOPRAMIDE HCL ORAL Take by mouth. Active polyethylene glycol 3350 (MIRALAX) 17 gram/dose Powder Take 17 Grams by mouth daily. Dissolve in 8 ounces of fluid and drink entire liquid Active latanoprost (XALATAN) 0.005 % solution 1 Drop daily at bedtime. Active losartan potassium (LOSARTAN ORAL) Take by mouth. Active pravastatin (PRAVACHOL) 20 mg tablet Take 20 mg by mouth daily with supper. Active amLODIPine-ator vastatin 10-10 mg tablet Take 1 Tablet by mouth daily. Active brimonidine (ALPHAGAN) 0.2 % solution 1 Drop every 8 hours. Active timoloL maleate (TIMOPTIC) 0.5% solution 1 Drop 2 times daily. Active zolpidem (AMBIEN) 10 mg tablet Take 10 mg by mouth nightly as needed for Insomnia. Active acetaminophen (TYLENOL) 325 mg tablet Take 325 mg by mouth every 4 hours as needed. Active ferrous gluconate 324 mg (38 mg iron) tablet Take 1 Tablet (324 mg) by mouth daily. 90 Tablet 3 09/17/2023 Active Active Problems Problem Noted Date Diagnosed Date Malignant neoplasm of ascending colon 02/21/2021 Encounters Date Type Department Care Team Description 08/01/2024 Telephone [facility] Oncology and Hematology - [place] [address] [place] [address] Kelber Kohler MD appointment blood work 07/31/2024 Orders Only [facility] Oncology and Hematology [facility] [address] [place] [address] Kleber Kohler MD Malignant neoplasm of colon, unspecified part of colon (CMS/HCC) (Primary Dx) 07/23/2024 External Device Data STL ABSTRACTION Provider, Abstract 07/17/2024 External Device Data STL ABSTRACTION Provider, Abstract from Last 3 Months Family History Relation Name Status Comments Brother Alive Father Mother Social History Tobacco Use Types Packs/Day Years Used Date Smoking Tobacco: Former Cigarettes Smokeless Tobacco: Never Tobacco Cessation:Counseling Given: Not Answered Alcohol Use Standard Drinks/Week Comments Not Currently 0 (1 standard drink = 0.6 oz pur e alcohol) Sex and Gender Information Value Date Recorded Sex Assigned at Not on file Legal Sex Male 11:27 AM CDT Gender Identity Not on file Sexual Orientation Not on file Last Filed Vital Signs Vital Sign Reading Time Taken Comments Blood Pressure 155/81 03/24/2024 11:30 AM CDT Pulse 65 03/24/2024 11:30 AM CDT Temperature 36.8 C (98.2 F) 03/24/2024 11:30 AM CDT Respiratory Rate 18 03/24/2024 11:30 AM CDT Oxygen Saturation 92% 03/24/2024 11:30 AM CDT Inhaled Oxygen Concentration - - Weight 76.7 kg (169 lb) 03/24/2024 11:30 AM CDT Height 172.7 cm (5' 8 ) 01/04/2022 1:09 PM CDT Body Mass Index 25.7 01/04/2022 1:09 PM CDT Plan of Treatment Upcoming Encounters Date Type Department Care Team (Late st Contact Info) Description 08/04/2024 2:45 PM LATEX FOAM WORKER Office Visit [facility] Oncology and Hematology [facility] [address] [place] [address] Kleber Kohler MD [address] [facility] [employer] [address] [place] [address] Health Maintenance Due Date Last Done Comments ZOSTER VACCINE (1 of 2) 1996 PNEUMOCOCCAL VACCINE 65+ YEA RS (2 of 2 - PPSV23) 10/17/2017 10/17/2016 RSV VACCINE (60+ or ) (1 - 1-dose 75+ series) 2021 INFLUENZA VACCINE (#1) 2024 , 04/01/2020, 03/13/2019, Additional history exists [place] ([place]) Preventative Visit/Annual Wellness Visit 06/25/2024 DTAP/TDAP/TD VACCINES (2 - T d or Tdap) 10/17/2026 10/17/2016 Insurance AETNA [facility] AETNA [facility] Care Teams Technician Trainee Relationship Specialty Start Date End Date Provider, Abstract NO ADDRESS ON FILE PCP - General 02/21/21
--- OUTSIDE RECORDS SUMMARY | 2024-08-01 17:29 | XMS_ITS | Referral Summary ---
Author Organization [facility] Address [address] [place] [address] Care Team Providers Care Awning Assembler Name Role Phone Lina Cleary APRN Primary Ca re Provider Encounters Date Type Department Care Team Description 06/13/2024 Telephone [facility] Ophthalmology [facility] [address] Kamran Monet MD 06/13/2024 Telephone [facility] Ophthalmology [address] [place] [address] Demetri Bradford II, MD Med Refill from Last 3 Months Allergies No known active allergies Medications losartan [...] 06/14/2020 Assessment & Plan (06/14/2020 1:13 PM IMPREGNATOR [employer]): Based on exam today, I think the [...] OU Assessment & Plan (06/05/2022 4:20 PM IMPREGNATOR [employer]): Here for 10-2 HVF - had concern [...] time Assessment & Plan (06/06/2021 12:45 PM IMPREGNATOR [employer]): Referred from optometry for evaluation with glaucoma [...] Sharp. Assessment & Plan (06/14/2020 1:15 PM IMPREGNATOR [employer]): Previously followed by eye associates. IOP excellent [...] eye associates. Now transferring all care to [facility]. IOP excellent today on 3 classes. CPM [...] Sharp. Assessment & Plan (06/14/2020 1:16 PM IMPREGNATOR [employer]): No SRF/IRF today. Stable. Keep f/u with [...] up. Assessment & Plan (06/26/2019 9:50 AM IMPREGNATOR [employer]): Last ANABEL OS 06/2018 Stable and dry [...] way. 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 Recommended anti-VEGF (Eylea) therapy to the left eye. Risks, benefits, alternatives discussed with patient. Assessment & Plan (06/06/2018 3:35 PM IMPREGNATOR [employer]): Improved following Eylea OS - recommend observation. [...] stable. Assessment & Plan (06/14/2020 1:13 PM IMPREGNATOR [employer]): Chronic. Stable. Monocular precautions. Assessment & Plan (04/22/2020 9:11 AM CDT): Chronic, remains stable, recommend observation. 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 Monocular precautions reviewed. F/u with Dr. Crawley as scheduled. Sooner prn. Assessment & Plan (12/25/2019 10:11 AM CDT): Chronic, stable Continue to observe.Guarded prognosis.. Assessment & Plan (06/26/2019 9:51 AM IMPREGNATOR [employer]): Chronic, stable Continue to observe.Guraded prognosis. Assessment [...] observation. Assessment & Plan (07/18/2018 2:16 PM IMPREGNATOR [employer]): Chronic macular hole right eye recommend observation. Assessment & Plan (06/06/2018 3:34 PM IMPREGNATOR [employer]): Chronic macular hole right eye recommend observation. Assessment & Plan (04/15/2018 4:37 PM CDT): Chronic macular hole right eye recommend observation. Immunizations Name Administration Dates Next Due Influenza, Quadrivalent, Hig h Dose, Preservative Free, Intrr 04/19/2021,04/01/2020 Influenza, Quadrivalent, Split, Intramuscular ,04/11/2016 Influenza, Quadrivalent, Spl it, Preservative Free, Intramuscular 03/12/2018,04/13/2015 Influenza, Trivalent, High D ose, Split, Preservative Free, Intramuscular 03/13/2019 Pneumococcal Conjugate PCV 13 10/17/2016 Tdap 10/17/2016 Social History Tobacco Use Types Packs/Day Years Used Date Smoking Tobacco: Former Cigarettes Q uit: 1980 Smokeless Tobacco: Never AUDIT-C Answer Date Recorded [...] on file Legal Sex Male 6:32 AM IMPREGNATOR [employer] Gender Identity Not on file Sexual Orientation [...] 11/11/2021 6:30 AM CDT Plan of Treatment Not on file Insurance MEDICARE SOLUTIONS [facility] MEDICARE MEDICARE SOLUTIONS Care Teams Awning Assembler Relationship Specialty Start Date End Date Lina Cleary APRN [address] [place] [id number] PCP - General Nurse Practitioner 05/06/18
[2024-08-01 17:54] LABS: Basophils Percent Auto 0.5 % (0.2-1.2); Eosinophils Absolute Auto 0.1 K/mm3 (0-0.3); Eosinophils Percent Auto 2.2 % (0-4.4); Immature Granulocyte Absolute 0.01 K/mm3 (0.00-0.031); Immature Granulocyte Percent A 0.2 % (0-0.5); Lymphocytes Absolute Auto 1.44 K/mm3 (0.9-3.2); Lymphocytes Percent Auto 26.1 % (18.3-44.2); Mean Corpuscular HGB Conc 32.5 g/dl (32-36); Mean Corpuscular Hemoglobin 31.2 pg (26-34); Mean Corpuscular Volume 95.9 fl (80-100); Mean Platelet Volume 9.7 fl (7.4-10.4); Monocytes Absolute Auto 0.7 K/mm3 (0.1-0.6); Monocytes Percent Auto 12.1 % (2.6-8.5); Neutrophils Absolute Auto 3.3 K/mm3 (1.3-6.7); Neutrophils Percent Auto 58.9 % (45.5-73.1); Platelet Count Result 174 k/mm3 (150-375); Red Blood Count 4.17 M/mm3 (4.6-6.20); Red Cell Distribution Width 12.3 % (11.5-14.5); White Blood Count 5.5 K/mm3 (4.5-10.0)
[2024-08-01 18:15] LABS: Alanine Aminotransferase 12 U/L (6-50); Albumin Level 4.4 g/dL (3.5-5.1); Alkaline Phosphatase 79 U/L (38-126); Anion Gap 11 mmol/L (4-12); Aspartate Amino Transferase 22 U/L (17-59); Bilirubin,Total 0.5 mg/dL (0.2-1.3); Blood Urea Nitrogen 14 mg/dL (9-20); Calcium 9.2 mg/dL (8.4-10.2); Carbon Dioxide 23 mmol/L (22-30); Chloride 105 mmol/L (98-107); Estimated Glomerular Filt Rate > 60; Glucose 85 mg/dL (65-110); Potassium 4.1 mmol/L (3.4-5.0); Sodium 139 mmol/L (137-145)
[2024-08-01 18:46] LABS: Carcinoembryonic Antigen 3.8 ng/mL (0.0-3.0)
== END 2024-08-01 17:23 | disposition home or self-care (01) ==
LOC: ANHLAB 17:27
PROVIDERS: Visit Provider Internal Medicine Hematology & Oncology
DX: C18.9 Malignant neoplasm of colon, unspecified (principal)
CPT/HCPCS: 36415; 80053; 82378; 85025

== ENCOUNTER 2024-12-01 13:48 | Outpatient (CLI) | payer MEDICARE, SELFPAY ==
[2024-12-01 14:26] LABS: Basophils Percent Auto 0.6 % (0.2-1.2); Eosinophils Absolute Auto 0.1 K/mm3 (0-0.3); Eosinophils Percent Auto 2.7 % (0-4.4); Hematocrit 38.6 % (42.0-52.0); Hemoglobin 12.3 g/dL (14.0-18.0); Immature Granulocyte Absolute 0.01 K/mm3 (0.00-0.031); Immature Granulocyte Percent A 0.2 % (0-0.5); Lymphocytes Absolute Auto 1.25 K/mm3 (0.9-3.2); Lymphocytes Percent Auto 24.3 % (18.3-44.2); Mean Corpuscular HGB Conc 31.9 g/dl (32-36); Mean Corpuscular Hemoglobin 30.6 pg (26-34); Mean Platelet Volume 9.9 fl (7.4-10.4); Monocytes Absolute Auto 0.6 K/mm3 (0.1-0.6); Monocytes Percent Auto 11.1 % (2.6-8.5); Neutrophils Absolute Auto 3.1 K/mm3 (1.3-6.7); Neutrophils Percent Auto 61.1 % (45.5-73.1); Platelet Count Result 180 k/mm3 (150-375); Red Blood Count 4.02 M/mm3 (4.6-6.20); Red Cell Distribution Width 12.1 % (11.5-14.5); White Blood Count 5.1 K/mm3 (4.5-10.0)
[2024-12-01 16:05] LABS: Alanine Aminotransferase 13 U/L (6-50); Alkaline Phosphatase 60 U/L (38-126); Anion Gap 7 mmol/L (4-12); Aspartate Amino Transferase 26 U/L (17-59); Bilirubin,Total 0.7 mg/dL (0.2-1.3); Blood Urea Nitrogen 18 mg/dL (9-20); Calcium 9.2 mg/dL (8.4-10.2); Carbon Dioxide 26 mmol/L (22-30); Chloride 107 mmol/L (98-107); Estimated Glomerular Filt Rate 57; Glucose 97 mg/dL (65-110); Potassium 4.1 mmol/L (3.4-5.0); Sodium 140 mmol/L (137-145); Total Protein 7.1 g/dL (6.3-8.2)
[2024-12-01 16:31] LABS: Carcinoembryonic Antigen 3.1 ng/mL (0.0-3.0)
== END 2024-12-01 13:49 | disposition home or self-care (01) ==
LOC: ANHLAB 13:52
PROVIDERS: Visit Provider Internal Medicine Hematology & Oncology
DX: C18.9 Malignant neoplasm of colon, unspecified (principal)
CPT/HCPCS: 36415; 80053; 82378; 85025

== ENCOUNTER 2025-06-04 16:04 | Outpatient (CLI) | payer MEDICARE, SELFPAY ==
[2025-06-04 16:49] LABS: Alanine Aminotransferase 11 U/L (6-50); Albumin Level 4.0 g/dL (3.5-5.1); Alkaline Phosphatase 71 U/L (38-126); Anion Gap 3 mmol/L (4-12); Aspartate Amino Transferase 24 U/L (17-59); Bilirubin,Total 0.5 mg/dL (0.2-1.3); Blood Urea Nitrogen 12 mg/dL (9-20); Calcium 9.0 mg/dL (8.4-10.2); Carbon Dioxide 28 mmol/L (22-30); Chloride 108 mmol/L (98-107); Estimated Glomerular Filt Rate 56; Glucose 80 mg/dL (65-110); Potassium 3.9 mmol/L (3.4-5.0); Sodium 139 mmol/L (137-145); Total Protein 7.2 g/dL (6.3-8.2)
[2025-06-04 17:08] LABS: Hematocrit 38.5 % (42.0-52.0); Hemoglobin 12.6 g/dL (14.0-18.0); Immature Granulocyte Percent A 0.6 % (0-0.5); Lymphocytes Absolute Auto 1.08 K/mm3 (0.9-3.2); Mean Corpuscular HGB Conc 32.7 g/dl (32-36); Mean Corpuscular Hemoglobin 31.7 pg (26-34); Mean Corpuscular Volume 97.0 fl (80-100); Nucleated Red Blood Cells Absolute Auto 0.000 K/mm3 (0.0-0.012); Nucleated Red Blood Cells Perc 0.0 % (0.0-0.2); Platelet Count Result 178 k/mm3 (150-375); Red Blood Count 3.97 M/mm3 (4.6-6.20); White Blood Count 5.0 K/mm3 (4.5-10.0)
[2025-06-04 17:24] LABS: Carcinoembryonic Antigen 3.6 ng/mL (0.0-3.0)
--- OUTSIDE RECORDS SUMMARY | 2025-06-04 19:23 | XMS_ITS | Clinical Summary ---
Author Organization [facility] [employer] Address [address] [place] [address] Care Team Providers Care Continuous Mining Machine Coal Miner Name Role Phone Unavailable Primary Care Provider Unavailabl e Source Comments [facility] [employer],non-owned Affiliates and Associated Physician Practices is amultiple site organization consisting of ambulatory clinics and hospital sitesin [place], [place], [place] and [place]. This disclosure is being madepursuant to the Care Everywhere program and may not contain all information available regarding this patient. Last updated 18.listedplaces [employer] Allergies No known active allergies Medications * Be aware that medications may not be up to date on this document. Alwaysverify current medications with the patient. timolol maleate (TIMOPTIC) 0.5 % ophthalmic solution [...] (OCEAN; BABY AYR) 0.65 % nasal spray [place] 1 spray into each nostril as needed for Dry Nose 30 mL 1 0 Active acetaminophen (TYLENOL) 325 MG tablet Take 325 mg by mouth every 4 hours as needed for Fever or Pain Maximum allowable Acetaminophen amount = 4 Grams (4000 mg) / 24 hours. Active Active Problems No known active problems Immunizations Immunization Administration Dates Next Due TDAP (7yrs+) 11/29/2019(Deferred: [...] at Not on file Legal Sex Male 8:50 AM DEPUTY DIRECTOR OF PUBLIC WORKS Gender Identity Not on file Sexual Orientation [...] 1:18 PM CDT Height 172.7 cm (5' 8) 01/20/2020 1:06 PM CDT Body Mass Index 31.17 01/20/2020 1:06 PM CDT Plan of Treatment Health Maintenance Due Date Last Done Comments HEPATITIS C SCREENING 12/05/1964 DTAP/TDAP/TD VACCINES (1 - Tdap) 1965 PNEUMOCOCCAL VACCINE 50+ (1 of 1 - PCV) 1996 ZOSTER VACCINE (1 of 2) 1996 Respiratory Syncytial Virus (RSV) Vaccine Pt: or over 60 yrs (1 - 1-dose 75+ series) 2021 DEPRESSION SCREENING 06/25/2024 COVID-19 VACCINE ( - 2024-2 6 season) 2025 INFLUENZA VACCINE (#1) 2025 HEPATITIS B VACCINE Aged Out No longe r eligible based on patient's age to complete this topic HIB VACCINE Aged Out No longer eligi ble based on patient's age to complete this topic HPV VACCINE Aged Out No longer eligi ble based on patient's age to complete this topic MENINGOCOCCAL (Group B) VACC INE SHARED DECISION-MAKING Aged Out No longer eligibl e based on patient's age to complete this topic MENINGOCOCCAL GROUPS A/C/Y/W VACCINE Aged Out No longer eligible b ased on patient's age to complete this topic Goals Goal Patient Goal Type Associated Problems Recent Progress Patient-Stated? Author Mobility/ROM General No Tracy Summers, RN Note: Expected end date: ongoing The goal is to maintain or improve your mobility at the optimum level for you. Interventions: Insurance [facility] MANAGED MEDICARE ADV [facility] MANAGED MEDICARE ADV
--- OUTSIDE RECORDS SUMMARY | 2025-06-04 19:24 | XMS_ITS | Clinical Summary ---
Author Organization [facility] Address [address] [place] [place] [address] Care Team Providers Care Microsoft Dynamics Manager Architect Name Role Phone Provider, Abstract Primary Care [...] Encounters Date Type Department Care Team Description 06/02/2025 External Device Data STL ABSTRACTION Provider, Abstract 05/12/2025 External Device Data STL ABSTRACTION Provider, Abstract 04/15/2025 External Device Data STL ABSTRACTION Provider, Abstract 04/07/2025 External Device Data STL ABSTRACTION Provider, Abstract 03/10/2025 External Device Data STL ABSTRACTION Provider, Abstract [...] Sign Reading Time Taken Comments Blood Pressure 128/77 12/08/2024 2:09 PM CDT Pulse 58 12/08/2024 2:07 PM CDT Temperature 36.6 C (97.9 F) 12/08/2024 2:07 PM CDT Respiratory Rate 15 12/08/2024 2:07 PM CDT Oxygen Saturation 97% 12/08/2024 2:07 PM CDT Inhaled Oxygen Concentration - - Weight 75.3 kg (166 lb) 12/08/2024 2:07 PM CDT Height 172.7 cm (5' 8) 01/04/2022 1:09 PM CDT Body Mass Index 25.24 01/04/2022 1:09 PM CDT Plan of Treatment Upcoming Encounters Date Type Department Care Team (Late st Contact Info) Description 06/08/2025 2:15 PM CHYRON OPERATOR Office Visit [facility] Oncology and Hematology - [place] [address] [address] [place] [address] Kleber Kohler MD [address] [facility] [address] [place] [address] Health Maintenance Due Date Last Done Comments ZOSTER VACCINE (1 of 2) 1996 PNEUMOCOCCAL VACCINE 50+ YEA RS (2 of 2 - PCV20 or PCV21) 10/17/2017 10/17/2016 RSV VACCINE (60+ or ) (1 - 1-dose 75+ series) 2021 Medicare Advantage ([place]) Preventative Visit/Annual Wellness Visit 06/25/2024 INFLUENZA VACCINE (#1) 2025 1, 04/01/2020, 03/13/2019, Additional history exists DTAP/TDAP/TD VACCINES (2 - T d or Tdap) 10/17/2026 10/17/2016 Insurance AETNA PPO [facility] AETNA PPO MCR Care Teams Microsoft Dynamics Manager Architect Relationship Specialty Start Date End Date Provider, Abstract NO ADDRESS ON FILE PCP - General 02/21/21
--- OUTSIDE RECORDS SUMMARY | 2025-06-04 19:24 | XMS_ITS | Clinical Summary ---
Author Organization [facility]st[facility] Address [address] [place] [address] Care Team Providers Care Manager Data Name Role Phone Lina Cleary APRN Primary [...] both eyes 2 (two) times a day 20 mL 3 5 Active latanoprost (XALATAN) 0.005 % ophthalmic solution Administer 1 drop into both eyes nightly 10 mL 3 5 Active timolol (TIMOPTIC) 0.5 % ophthalmic solution Administer 1 drop into both eyes every morning 10 mL 3 5 Active Hospital, Clinic, or Other Facility Administered [...] mass 11/11/2021 Malignant neoplasm of ascending colon 02/21/2021 10/09/2022 Diplopia 06/14/2020 Assessment & Plan (06/14/2020 1:13 PM CIGARETTE BOOK MAKER): Based on exam today, I think the [...] OU Assessment & Plan (06/05/2022 4:20 PM CIGARETTE BOOK MAKER): Here for 10-2 HVF - had concern [...] time Assessment & Plan (06/06/2021 12:45 PM CIGARETTE BOOK MAKER): Referred from optometry for evaluation with glaucoma [...] Sharp. Assessment & Plan (06/14/2020 1:15 PM CIGARETTE BOOK MAKER): Previously followed by [facility] associates. IOP excellent [...] eye associates. Now transferring all care to [facility]. IOP excellent today on 3 [...] Sharp. Assessment & Plan (06/14/2020 1:16 PM CIGARETTE BOOK MAKER): No SRF/IRF today. Stable. Keep f/u with [...] up. Assessment & Plan (06/26/2019 9:50 AM CIGARETTE BOOK MAKER): Last ANABEL OS 06/2018 Stable and dry [...] way. 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 Recommended anti-VEGF (Eylea) therapy to the left eye. Risks, benefits, alternatives discussed with patient. Assessment & Plan (06/06/2018 3:35 PM CIGARETTE BOOK MAKER): Improved following Eylea OS - recommend observation. [...] stable. Assessment & Plan (06/14/2020 1:13 PM CIGARETTE BOOK MAKER): Chronic. Stable. Monocular precautions. Assessment & Plan (04/22/2020 9:11 AM CDT): Chronic, remains stable, recommend observation. 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 Monocular precautions reviewed. F/u with Dr. Crawley as scheduled. Sooner prn. Assessment & Plan (12/25/2019 10:11 AM CDT): Chronic, stable Continue to observe.Guarded prognosis.. Assessment & Plan (06/26/2019 9:51 AM CIGARETTE BOOK MAKER): Chronic, stable Continue to observe.Guraded prognosis. Assessment [...] observation. Assessment & Plan (07/18/2018 2:16 PM CIGARETTE BOOK MAKER): Chronic macular hole right eye recommend observation. Assessment & Plan (06/06/2018 3:34 PM CIGARETTE BOOK MAKER): Chronic macular hole right eye recommend observation. Assessment & Plan (04/15/2018 4:37 PM CDT): Chronic macular hole right eye recommend observation. Encounters Date Type Department Care Team Description 05/06/2025 Orders Only [facility] Medicine Ophthalmology [address] [place] [phone] Kamran Monet MD Primary open angle glaucoma (POAG) of both eyes, indeterminate stage (Primary Dx) 05/05/2025 2:30 PM CIGARETTE BOOK MAKER Office Visit [facility] Ophthalmology [address] [place] [phone] Kamran Monet MD Primary open angle glaucoma (POAG) of both eyes, indeterminate stage (Primary Dx); Macular hole, right eye 05/05/2025 2:00 PM [employer]IGARETTE BOOK [employer]KER Imaging Exam [facility] Ophthalmology [address] [place] [address] Primary open angle glaucoma (POAG) of both eyes, indeterminate stage from Last 3 Months Immunizations Immunization Administration Dates Next Due Influenza, Quadrivalent, Hig h Dose, Preservative Free, Intrr 04/19/2021,04/01/2020 Influenza, Quadrivalent, Split, Intramuscular ,04/11/2016 Influenza, Quadrivalent, Spl it, Preservative Free, Intramuscular 03/12/2018,04/13/2015 Influenza, Trivalent, High D ose, Split, Preservative Free, Intramuscular 03/13/2019 Pneumococcal Conjugate PCV 13 10/17/2016 Tdap 10/17/2016 Surgical History Surgery Date Site/Laterality Comments CATARACT EXTRACTION W/ INTRAOCULAR LENS IMPLANT Date UNK 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/2021 Left Medical History Medical History Date Comments Glaucoma Dx'd Approx 2002 OU (Type UNK) Eye trauma Approx 30+ Yrs Ago Trauma w/ Ho le s/p Repair (Type UNK) Hypertension Colon cancer (HCC) HLD (hyperlipidemia) Family History Medical History [...] on file Legal Sex Male 6:32 AM CIGARETTE [employer]OOK [employer] Gender Identity Not on file Sexual Orientation [...] 6:30 AM CDT Height 172.7 cm (5' 8) 11/11/2021 6:30 AM CDT Body Mass Index 24.14 11/11/2021 6:30 AM CDT Plan of Treatment Health Maintenance Due Date Last Done Comments Depression Screening 1945 Hepatitis C Screening 1945 Hepatitis B Screening 1964 Zoster Vaccine (1 of 2) 1996 Well Visit 65+ 12/11/2011 Pneumococcal vaccine 65+ (2 of 2 - PCV20 or PCV21) 10/17/2017 10/17/2016 Fall Risk Assessment 11/11/2022 11/11/2021 Covid-19 Vaccine (4 - 2024-2 6 season) 2025 04/19/2021, 09/07/2020, 08/17/2020 Influenza Vaccine (#1) 2025 , 04/01/2020, 03/13/2019, Additional history exists DTaP/Tdap/Td Vaccine (2 - Td or Tdap) 10/17/2026 10/17/2016 Abdominal Aortic Aneurysm (A AA) Screen Completed 04/28/2021 Procedures Procedure Name Priority Date/Time Associated Diagnosis Comments GOLDMANN VISUAL FIELD, EXTENDED - OU - BOTH EYES Routine 05/05/2025 2:43 PM [employer]ARETTE [employer]OOK [employer] Primary open angle glaucoma (POAG) of both eyes, indeterminate stage from Last 3 Months Results * Goldmann Visual Field, Extended - OU - Both Eyes (05/05/2025 2:43 PM CIGARETTE BOOK MAKER) Anatomical Region Laterality Modality Head Visual Field Narrative 05/07/2025 12:39 PM CIGARETTE BOOK MAKER Right Eye Fixation was good. Cooperation was good. Reliability was good. Left Eye Fixation was good. Cooperation was good. Reliability was good. 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
--- OUTSIDE RECORDS SUMMARY | 2025-06-04 19:24 | XMS_ITS | Encounter Summary ---
Author Organization [facility] Address [address] [place] [address] Care Team Providers Care Hydraulic Jack Adjuster Name Role Phone Provider, Abstract Primary Care Provider Unavail able Encounter Details Date Type Department Care Team (Late st Contact Info) Description 06/02/2025 External Device Data STL ABSTRACTION Provider, Abstract NO ADDRESS ON FILE Social History Tobacco Use Types Packs/Day Years [...] st Contact Info) Description 06/08/2025 2:15 PM SIZING END BANDER Office Visit [facility] Oncology and Hematology - [place] [address] [place] [address] [facility] [address] [place] [address] Kleber Kohler MD [phone] [facility] [address] [place] [address] documented as of this encounter Visit Diagnoses Not on filedocumented in this encounter Care Teams Hydraulic Jack Adjuster Relationship Specialty Start Date End Date Provider, Abstract NO ADDRESS ON FILE PCP - General 02/21/21 documented as of this encounter
== END 2025-06-04 16:05 | disposition home or self-care (01) ==
LOC: ANHLAB 16:06
PROVIDERS: Visit Provider Internal Medicine Hematology & Oncology
DX: C18.9 Malignant neoplasm of colon, unspecified (principal)
CPT/HCPCS: 36415; 80053; 82378; 85025